=== PATIENT | male | born 1930 | race Caucasian/White ===

== ENCOUNTER 2016-05-28 22:42 | Inpatient (IN) | payer OTHER, BC ==
[~2016-05-28] VITALS: Ht 175.3 cm; Wt 88.4 kg
[~2016-05-28 22:42] MED LIST: B-COTAB18 PO; CHOL1CAP27 PO; FURO-85 PO; METO25TA56 PO
[2016-05-28] MEDS ORDERED: ACETAMINOPHEN 500 MG TAB PO STA (23:11)
[2016-05-28 23:17] LABS: BASO % 0.1 %; BASO ABS # 0.01 K/uL (0-0.2); COMPLETE YES; EOS % 0.7 %; HEMATOCRIT 40.4 % (42-52); IG% 0.1 %; LYMPH % 5.9 %; LYMPH ABS # 0.43 K/uL (1.2-3.4); MEAN CELL VOLUME 87.8 fL (80-100); MEAN CORPUSCULAR HEMOGLOBIN 29.1 pg (25-34); MEAN CORPUSCULAR HGB CONC 33.2 g/dl (32-36); MEAN PLATELET VOLUME 9.3 fL (7.4-10.4); NEUT % 82.2 %; PLATELET COUNT 185 K/uL (130-400); WHITE BLOOD COUNT 7.35 K/uL (4.8-10.8)
[2016-05-28 23:35] LABS: BUN/CREATININE RATIO 18.5 (10-20); CALCIUM 8.8 mg/dl (8.5-10.1); CREATININE 0.85 mg/dl (0.60-1.40); POTASSIUM 4.1 mmol/L (3.5-5.1)
[2016-05-28 23:40] LABS: ALB/GLOB RATIO 0.9 (0.9-2)
[2016-05-29] VITALS (12 sets, daily range): BP systolic 107–153; BP diastolic 56–68; PULSE 54–60; TEMP 36.4–37.1; O2SAT 93–98; Ht 175.3 cm; Wt 88.4 kg
[2016-05-29] MEDS ORDERED: LEVAQUIN 750MG / 150ML D5W IV STA (00:25)
[2016-05-29] MEDS ORDERED: OSELTAMIVIR PHOSPHATE 75 MG CAP PO STA (00:30)
[2016-05-29] MEDS ORDERED: ONDANSETRON INJ 2 MG/ML 2 ML VIAL IV PRN (01:15)
[2016-05-29] MEDS ORDERED: ACETAMINOPHEN 325 MG TAB PO PRN (01:15)
[2016-05-29] MEDS ORDERED: ZOLPIDEM TARTRATE 5 MG TAB PO PRN (01:15)
[2016-05-29] MEDS ORDERED: NITROGLYCERIN 0.4 MG SL PER TAB CHARGE SL PRN (01:15)
[2016-05-29] MEDS ORDERED: VANCOMYCIN INJ 2,300 MG in SODIUM CHLORIDE 0.9% 500ML 500 ML IV STA (01:19)
--- NOTE | 2016-05-29 02:32 | EMERGENCY ROOM VISIT NOTE ---
History Report prepared by Devon: Guy Villalpando Under the Supervision of: Dr. Richard Bhatia M.D. First contact with patient: 23:03 Chief Complaint: ILLNESS Stated Complaint: FEVER/WHEEZING History of Present Illness The patient is an 85 year old male who presents to the Emergency Room with complaints of a persistent cough and fever that began one day prior to arrival. He states that Monday, one week ago, he went out to dinner and could not carry himself out of the restaurant. This happened on the as well , as he continued to experience weakness. The patient went to [facility] on who did not make any significant diagnosis. The patient and his life at [place], who tried to schedule and appointment with his PCP. His PCP could not see him until the 16 of June. He denies LOC, headache, chills, diaphoresis, visual changes, neck pain, chest pain, breathing difficulties, nausea, vomiting, abdominal pain, back pain, melena, hematochezia, urinary symptoms, numbness, weakness, lymphadenopathy, rash, or other complaints. Source of History: patient Onset: One day [employer] Position: chest Quality: other (Cough) Timing: other (Persistent) Associated Symptoms: + fevers, No chest pain Review of Systems See HPI for pertinent positives and negatives. A total of ten systems were reviewed and were otherwise negative. Past Medical & Surgical Medical Problems: (1) Ambulatory dysfunction (2) CAD (coronary artery disease) (3) Cellulitis of right leg (4) Generalized weakness (5) History of triple bypass (6) Hypertension (7) Influenza A (8) Left lower lobe pneumonia (9) TIA (transient ischemic attack) Surgical Problems: (1) History of cholecystectomy (2) History of knee surgery (3) S/P triple vessel bypass (4) Status post skin graft Family History Patient reports no known family medical history. Social History Smoking Status: Former Smoker Alcohol Use: occasionally Drug Use: none Marital Status: Housing Status: assisted living Occupation Status: retired Current/Historical Medications Scheduled Aspirin (Aspirin), 162.5 MG PO Q2D B-Complex Vitamins (Vitamin B Complex), 1 TABS PO DAILY Cholecalciferol (D3), 1,000 UNIT PO DAILY Clopidogrel (Plavix), 75 MG PO QAM Furosemide (Lasix), 20 MG PO DAILY Metoprolol Tartrate (Lopressor) (Lopressor), 12.5 MG PO BID Nitroglycerin (Nitrostat), 0.4 MG UT PRN Pravastatin (Pravachol ), 40 MG PO QAM Senna (Senokot), 8.6 MG PO DAILY Allergies Coded Allergies: No Known Allergies (Unverified , 11/24/15) Physical Exam Vital Signs Date Time Temp Pulse Resp B/P Pulse Ox O2 Delivery O2 Flow Rate FiO2 05/29/16 00:35 63 20 116/50 92 Nasal Cannula 4.0 05/29/16 00:04 91 Nasal Cannula 05/29/16 00:04 87 Room Air 05/28/16 23:24 71 18 137/85 93 Nasal Cannula 2.0 05/28/16 23:13 95 Nasal Cannula 2.0 05/28/16 23:00 71 05/28/16 22:54 95 Nasal Cannula 2.0 05/28/16 22:54 99 Nasal Cannula 2.0 05/28/16 22:51 37.8 72 23 148/82 88 Room Air Physical Exam GENERAL: Awake, alert, well-appearing, in no distress HENT: Normocephalic, atraumatic. Oropharynx unremarkable. EYES: Normal conjunctiva. Sclera non-icteric. NECK: Supple. No nuchal rigidity. FROM. No JVD. RESPIRATORY: Clear to auscultation. CARDIAC: Regular rate, normal rhythm. Extremities warm and well perfused. Pulses equal. ABDOMEN: Soft, non-distended. No tenderness to palpation. No rebound or guarding. No masses. RECTAL: Deferred. MUSCULOSKELETAL: Chest examination reveals no tenderness. The back is symmetrical on inspection without obvious abnormality. There is no CVA tenderness to palpation. No joint edema. LOWER EXTREMITIES: Calves are equal size bilaterally and non-tender. 2+ Pitting edema. Chronic Discoloration. NEURO: Normal sensorium. No sensory or motor deficits noted. SKIN: No rash or jaundice noted. Medical Decision & Procedures ER Provider Diagnostic Interpretation: X-ray: Per my interpretation, radiologist review. CHEST X-RAY: Possible left lower lobe infiltrate. Laboratory Results 05/28/16 23:00 Red Blood Count 4.60, Mean Corpuscular Volume 87.8, Mean Corpuscular Hemoglobin 29.1, Mean Corpuscular Hemoglobin Concent 33.2, Mean Platelet Volume 9.3, Neutrophils (%) (Auto) 82.2, Lymphocytes (%) (Auto) 5.9, Monocytes (%) (Auto) 11.0, Eosinophils (%) (Auto) 0.7, Basophils (%) (Auto) 0.1, Neutrophils # (Auto ) 6.04, Lymphocytes # (Auto) 0.43, Monocytes # (Auto) 0.81, Eosinophils # (Auto ) 0.05, Basophils # (Auto) 0.01 05/28/16 23:00 Test 05/28/16 23:00 05/28/16 23:10 05/28/16 23:27 White Blood Count 7.35 K/uL (4.8-10.8) Red Blood Count 4.60 M/uL (4.7-6.1) Hemoglobin 13.4 g/dL (14.0-18.0) Hematocrit 40.4 % (42-52) Mean Corpuscular Volume 87.8 fL (80-100) Mean Corpuscular Hemoglobin 29.1 pg (25-34) Mean Corpuscular Hemoglobin Concent 33.2 g/dl (32-36) Platelet Count 185 K/uL (130-400) Mean Platelet Volume 9.3 fL (7.4-10.4) Neutrophils (%) (Auto) 82.2 % Lymphocytes (%) (Auto) 5.9 % Monocytes (%) (Auto) 11.0 % Eosinophils (%) (Auto) 0.7 % Basophils (%) (Auto) 0.1 % Neutrophils # (Auto) 6.04 K/uL (1.4-6.5) Lymphocytes # (Auto) 0.43 K/uL (1.2-3.4) Monocytes # (Auto) 0.81 K/uL (0.11-0.59) Eosinophils # (Auto) 0.05 K/uL (0-0.5) Basophils # (Auto) 0.01 K/uL (0-0.2) RDW Standard Deviation 50.1 fL (36.4-46.3) RDW Coefficient of Variation 15.6 % (11.5-14.5) Immature Granulocyte % (Auto) 0.1 % Immature Granulocyte # (Auto) 0.01 K/uL (0.00-0.02) Anion Gap 8.0 mmol/L (3-11) Est Creatinine Clear Calc Drug Dose 67.7 ml/min Estimated GFR () 90.8 Estimated GFR (Non- 78.3 BUN/Creatinine Ratio 18.5 (10-20) Calcium Level 8.8 mg/dl (8.5-10.1) Total Bilirubin 0.9 mg/dl (0.2-1) Aspartate Amino Transf (AST/SGOT) 54 U/L (15-37) Alanine Aminotransferase (ALT/SGPT) 61 U/L (12-78) Alkaline Phosphatase 67 U/L (45-117) Troponin I 0.016 ng/ml (0-0.045) Pro-B-Type Natriuretic Peptide 948 pg/ml (0-1800) Total Protein 7.0 gm/dl (6.4-8.2) Albumin 3.3 gm/dl (3.4-5.0) Globulin 3.7 gm/dl (2.5-4.0) Albumin/Globulin Ratio 0.9 (0.9-2) Bedside Lactic Acid Venous 1.26 mmol/L (0.90-1.70) Influenza Type A Antigen POS for Influ A (NEG) Influenza Type B Antigen Neg for Influ B (NEG) Laboratory results reviewed by me Medications Administered Medications (Trade) Dose Ordered Sig/Agnes Route Start Time Stop Time Status Last Admin Dose Admin Acetaminophen (Tylenol Tab) 1,000 mg NOW STAT PO 05/28/16 23:11 05/28/16 23:12 DC 05/28/16 23:27 1,000 MG Levofloxacin (Levaquin / D5W) 750 mg NOW STAT IV 05/29/16 00:25 05/29/16 00:26 DC 05/29/16 00:31 750 MG Oseltamivir Phosphate (Tamiflu Cap) 75 mg NOW STAT PO 05/29/16 00:30 05/29/16 00:31 DC 05/29/16 00:53 75 MG ECG Indication: other (Febrile illness) Rate (beats per minute): 70 Rhythm: normal sinus Findings: no acute ischemic change, other (Poor baseline) ED Course 2311: The patient was evaluated in room B12. A complete history and physical exam was performed. 2311: Ordered Tylenol 1000 mg PO. 0025: Ordered Levofloxacin 750 mg IV. 0028: I checked on the patient at this time, he was resting in bed. 0030: Ordered Tamiflu 75 mg PO. 0050: I discussed the case with Dr. Abdoulaye SANCHEZ Hospitalist, he will evaluate the patient for further treatment. Medical Decision Triage Nursing notes reviewed. The patient's presentation and history were concerning for flulike symptoms. Etiologies such as influenza, pneumonia, COPD, reactive airway disease, CHF, cardiac ischemia, pulmonary embolism, pneumothorax, musculoskeletal, infections , gastrointestinal, as well as others were entertained. Patient was evaluated. He had fever and cough. His chest x-ray was somewhat concerning for a left lower lobe pneumonia. He had an unremarkable CBC and chemistry panel. The patient has a positive influenza test. LFTs, lipase and cardiac markers were unremarkable. The patient was treated with Levaquin and Tamiflu. He was also given Tylenol. He did require supplemental oxygen. Consultation was made with Dr. Jordan Stanford. He evaluated the patient in the Emergency Room for further management. The chart was completed utilizing [employer] Speech voice recognition software. Grammatical errors, random word insertions, pronoun errors, and incomplete sentences are an occasional consequence of this system due to software limitations, ambient noise, and hardware issues. Any formal questions or concerns about the content, text, or information contained within the body of this dictation should be directly addressed to the physician for clarification. Consults Time Called: 27 Consulting Physician: Dr. Abdoulaye SANCHEZ Hospitalist Returned Call: [phone] I discussed the case with Dr. Abdoulaye SANCHEZ Hospitalist, he will evaluate the patient for further treatment. Impression Primary Impression: Influenza A Additional Impressions: Left lower lobe pneumonia Hypoxia Scribe Attestation The scribe's documentation has been prepared under my direction and personally reviewed by me in its entirety. I confirm that the note above accurately reflects all work, treatment, procedures, and medical decision making performed by me. Departure Information Dispostion Being Evaluated By Hospitalist Referrals Drew Aldrich M.D. (PCP) Patient Instructions My [facility] Problem Qualifiers
[2016-05-29] MEDS ORDERED: LEVALBUTEROL/IPRATROPIUM NEB INH SCH (03:00)
[2016-05-29] MEDS: IPRATROPIUM BROMIDE NEB SOLN 0.02% 2.5 ML VIAL INH SCH ×4 (03:00→19:09)
[2016-05-29] MEDS ORDERED: ALBUMIN 25% 50 ML with FUROSEMIDE INJ 40 MG IV ONE ×2 (03:00)
[2016-05-29] MEDS ORDERED: PIPERACILL/TAZOBAC IV 3.375 GM in DEXTROSE 5% 100ML IV ONE (03:30)
[2016-05-29] MEDS ORDERED: VANCOMYCIN CONSULT ACTIVE PRN (03:30)
[2016-05-29] MEDS ORDERED: LEVOFLOXACIN CONSULT ACTIVE PRN (03:30)
[2016-05-29] MEDS ORDERED: PIPERACILL/TAZOBAC CONSULT ACTIVE PRN (03:30)
[2016-05-29] MEDS: LEVALBUTEROL 1.25MG/0.5ML NEB INH SCH ×4 (04:50→19:09)
--- NOTE | 2016-05-29 06:00 | History and Physical ---
History & Physical Date & Time of Service: May 29, 2016 at 05:47. The patient was examined on 05/28/2016. Chief Complaint: Influenza A, Left Lower Lobe Pneumonia Primary Care Physician: Drew Aldrich M.D. History of Present Illness Source: patient The patient is an 85-year-old male presents to the emergency department with a cough and fever that began 1 day prior to arrival. He initially experienced weakness to the point of inability ambulate 7 days ago while at the ED, and then 6 days ago. He was seen at [facility] 4 days ago with no change in medications. Because of worsening symptoms, he presents emergency department for assessment tonight. Past Medical/Surgical History Medical Problems: (1) Ambulatory dysfunction Status: Resolved (2) CAD (coronary artery disease) Status: Chronic (3) Generalized weakness Status: Resolved (4) History of triple bypass Status: Chronic (5) Hypertension Status: Resolved (6) TIA (transient ischemic attack) Status: Resolved Surgical Problems: (1) History of cholecystectomy Status: Resolved (2) History of knee surgery Status: Resolved (3) S/P triple vessel bypass Status: Resolved (4) Status post skin graft Status: Resolved Family History Patient reports no known family medical history. Social History Smoking Status: Former Smoker Smokeless Tobacco Use: No Alcohol Use: none Drug Use: none Marital Status: Housing status: lives with family Occupational Status: retired Multi-Drug Resistant Organisms History of MDRO: No Allergies Coded Allergies: No Known Allergies (Unverified , 11/24/15) Home Medications Scheduled Aspirin (Aspirin), 162.5 MG PO Q2D B-Complex Vitamins (Vitamin B Complex), 1 TABS PO DAILY Cholecalciferol (D3), 1,000 UNIT PO DAILY Clopidogrel (Plavix), 75 MG PO QAM Furosemide (Lasix), 20 MG PO DAILY Metoprolol Tartrate (Lopressor) (Lopressor), 12.5 MG PO BID Nitroglycerin (Nitrostat), 0.4 MG UT PRN Pravastatin (Pravachol ), 40 MG PO QAM Senna (Senokot), 8.6 MG PO DAILY Review of Systems The patient denies chest pain, palpitations, lower extremity swelling, vision change, hearing change, sore throat, fevers, chills, sweats, nausea, vomiting, abdominal pain, pelvic pain, blood in urine or stool, dysuria, urinary frequency or urgency, lightheadedness, dizziness, headache, memory loss, rash, abnormal bruising or bleeding, imbalance, focal weakness, numbness or tingling in arms or legs, arthralgias or myalgias, back or neck pain, night sweats, or allergy symptoms. The review of systems is otherwise negative other than for that already noted above, and at least 10 systems have been reviewed. Physical Exam Vital Signs Date Time Temp Pulse Resp B/P Pulse Ox O2 Delivery O2 Flow Rate FiO2 05/29/16 04:52 56 18 96 Nasal Cannula 3.0 05/29/16 04:00 94 Nasal Cannula 3.0 05/29/16 02:24 37.1 58 24 123/63 97 Nasal Cannula 3.0 05/29/16 01:57 37.2 58 18 107/55 94 05/29/16 00:35 63 20 116/50 92 Nasal Cannula 4.0 05/29/16 00:04 91 Nasal Cannula 05/29/16 00:04 87 Room Air 05/28/16 23:24 71 18 137/85 93 Nasal Cannula 2.0 05/28/16 23:13 95 Nasal Cannula 2.0 05/28/16 23:00 71 05/28/16 22:54 95 Nasal Cannula 2.0 05/28/16 22:54 99 Nasal Cannula 2.0 05/28/16 22:51 37.8 72 23 148/82 88 Room Air The patient is awake, well-developed and adequately nourished, alert and oriented 3, normocephalic and atraumatic, lying in bed and in no acute distress. HEENT--PERRL, EOMI, mucous membranes and oropharynx dry. Neck--supple, no JVD or bruits, thyroid normal, trachea midline, no adenopathy. Heart--normal S1 and S2, no extra beats, no murmurs, rubs or gallops. Lungs--coarse breath sounds bilaterally with crackles at the left base, no respiratory distress, no accessory muscle use. Abdomen--normal bowel sounds and soft, nontender and nondistended, no hernias or masses, no organomegaly. Extremities--no cyanosis, or clubbing bilaterally. There are good distal pulses b/l. Right lower extremity with 3+ pitting edema and moderately severe erythema and warmth from the ankle to the knee, with multiple coalesced vacuoles on anterior tibial surface. Left lower extremity with 2+ pitting edema and chronic venous stasis changes. Left upper extremity with healing laceration with well apposed edges, but 3-4 cm of surrounding erythema. Dermatologic--as noted above. Neurologic--cranial nerves II through XII grossly intact. Rheumatologic--decreased range of motion all lower extremity joints. Psychiatric--normal affect. Diagnostics Laboratory Results Results Past 24 Hours Test 05/28/16 23:00 05/28/16 23:10 05/28/16 23:27 Range/Units White Blood Count 7.35 4.8-10.8 K/uL Red Blood Count 4.60 4.7-6.1 M/uL Hemoglobin 13.4 14.0-18.0 g/dL Hematocrit 40.4 42-52 % Mean Corpuscular Volume 87.8 80-100 fL Mean Corpuscular Hemoglobin 29.1 25-34 pg Mean Corpuscular Hemoglobin Concent 33.2 32-36 g/dl Platelet Count 185 130-400 K/uL Mean Platelet Volume 9.3 7.4-10.4 fL Neutrophils (%) (Auto) 82.2 % Lymphocytes (%) (Auto) 5.9 % Monocytes (%) (Auto) 11.0 % Eosinophils (%) (Auto) 0.7 % Basophils (%) (Auto) 0.1 % Neutrophils # (Auto) 6.04 1.4-6.5 K/uL Lymphocytes # (Auto) 0.43 1.2-3.4 K/uL Monocytes # (Auto) 0.81 0.11-0.59 K/uL Eosinophils # (Auto) 0.05 0-0.5 K/uL Basophils # (Auto) 0.01 0-0.2 K/uL RDW Standard Deviation 50.1 36.4-46.3 fL RDW Coefficient of Variation 15.6 11.5-14.5 % Immature Granulocyte % (Auto) 0.1 % Immature Granulocyte # (Auto) 0.01 0.00-0.02 K/uL Sodium Level 140 136-145 mmol/L Potassium Level 4.1 3.5-5.1 mmol/L Chloride Level 106 98-107 mmol/L Carbon Dioxide Level 26 21-32 mmol/L Anion Gap 8.0 3-11 mmol/L Blood Urea Nitrogen 16 7-18 mg/dl Creatinine 0.85 0.60-1.40 mg/dl Est Creatinine Clear Calc Drug Dose 67.7 ml/min Estimated GFR () 90.8 Estimated GFR (Non- 78.3 BUN/Creatinine Ratio 18.5 10-20 Random Glucose 109 70-99 mg/dl Calcium Level 8.8 8.5-10.1 mg/dl Total Bilirubin 0.9 0.2-1 mg/dl Aspartate Amino Transf (AST/SGOT) 54 15-37 U/L Alanine Aminotransferase (ALT/SGPT) 61 12-78 U/L Alkaline Phosphatase 67 45-117 U/L Troponin I 0.016 0-0.045 ng/ml Pro-B-Type Natriuretic Peptide 948 0-1800 pg/ml Total Protein 7.0 6.4-8.2 gm/dl Albumin 3.3 3.4-5.0 gm/dl Globulin 3.7 2.5-4.0 gm/dl Albumin/Globulin Ratio 0.9 0.9-2 Bedside Lactic Acid Venous 1.26 0.90-1.70 mmol/L Influenza Type A Antigen POS for Influ A NEG Influenza Type B Antigen Neg for Influ B NEG Microbiology Results 05/28/16 Blood Culture, Received Pending 05/28/16 Blood Culture, Received Pending Diagnostic Radiology Chest x-ray with left lower lobe infiltrate. EKG EKG performed in the emergency department was not readable due to severe noise. Impression Assessment and Plan Infectious disease with multiple issues--influenza A /right lower extremity cellulitis/ left lower lobe pneumonia/left upper extremity cellulitis surrounding laceration--the patient will be placed on vancomycin IV per renal dosing, Zosyn 3.375 mg IV every 8 hours, levofloxacin 500 mg IV every 24 hours, Xopenex with Atrovent nebulizer every 6 hours while awake and every 2 hours when necessary, and Tamiflu 75 mg by mouth twice a day. CAD/hypertension/CABG 3/TIA history--the patient will be admitted to the telemetry unit for serial cardiac enzymes, cardiac rhythm monitoring and close oxygen follow-up. Continue aspirin but change to 81 mg by mouth daily, clopidogrel 75 mg by mouth every morning, metoprolol tartrate 12.5 mg by mouth twice a day, and nitroglycerin sublingual when necessary. Hold furosemide 20 mg by mouth daily. Hypercholesterolemia--continue pravastatin 40 mg by mouth every morning. Level of Care Telemetry Advanced Directives Existing Advance Directive: No Existing Living Will: No Existing Power of Court Advocate: Yes Resuscitation Status DO NOT RESUSCITATE VTE Prophylaxis VTE Risk Assessment Done? Y/N: Yes Risk Level: Moderate Given or contraindicated: SCD's
--- NOTE | 2016-05-29 06:45 | DIAGNOSTIC IMAGING REPORT ---
CHEST ONE VIEW PORTABLE CLINICAL HISTORY: Respiratory distress COMPARISON STUDY: 07/10/2015 FINDINGS: There are postsurgical changes of midline sternotomy. The heart is the upper limits of normal in size. There is no overt failure. There are patchy left basal airspace opacities, atelectasis versus pneumonia. No pleural effusions are visualized.[ Arthritic changes are present within the shoulders. IMPRESSION: Patchy left basal airspace opacities. Electronically signed by: Will Trinidad M.D. 05/29/2016 6:44 AM Dictated Date/Time: 05/29/2016 6:43 AM
[2016-05-29] MEDS ORDERED: PNEUMOCOCCAL ADMINISTRATION CHARGE ONE (08:00)
[2016-05-29] MEDS: PIPERACILL/TAZOBAC IV 3.375 GM in DEXTROSE 5% 100ML 100 ML IV SCH ×3 (08:00→23:45)
[2016-05-29] MEDS ORDERED: PNEUMOCOCCAL POLYSACCHARIDES 25 MCG/0.5 ML VIAL/SYR IM. ONE (08:00)
[2016-05-29] MEDS: OSELTAMIVIR PHOSPHATE 75 MG CAP PO SCH ×2 (09:00→20:53)
[2016-05-29] MEDS: PRAVASTATIN SOD 20 MG TAB PO SCH (09:00)
[2016-05-29] MEDS: CLOPIDOGREL BISULFATE 75 MG TAB PO SCH (09:00)
[2016-05-29] MEDS: VITAMIN B COMPLEX TAB PO SCH (09:00)
[2016-05-29] MEDS: SENNA 8.6 MG TAB PO SCH (09:00)
[2016-05-29] MEDS: METOPROLOL TARTRATE 25 MG TAB PO SCH ×2 (09:00→20:00)
[2016-05-29] MEDS: CHOLECALCIFEROL 1000 INTER.UNIT TAB PO SCH (09:00)
[2016-05-29] MEDS: ASPIRIN 81 MG ECTAB PO SCH (09:00)
[2016-05-29 09:07] LABS: HEMATOCRIT 34.9 % (42-52); MEAN CELL VOLUME 87.3 fL (80-100); MEAN CORPUSCULAR HEMOGLOBIN 29.3 pg (25-34); MEAN CORPUSCULAR HGB CONC 33.5 g/dl (32-36); MEAN PLATELET VOLUME 8.9 fL (7.4-10.4); PLATELET COUNT 150 K/uL (130-400); WHITE BLOOD COUNT 7.15 K/uL (4.8-10.8)
[2016-05-29 09:42] LABS: BASO % 0.1 %; BASO ABS # 0.01 K/uL (0-0.2); COMPLETE YES; EOS % 0.3 %; IG% 0.1 %; LYMPH % 14.1 %; LYMPH ABS # 1.01 K/uL (1.2-3.4); MONO % 10.6 %; NEUT % 74.8 %
--- NOTE | 2016-05-29 09:59 | Pharmacy Progress Note ---
Pharmacy Antibiotic Consult Date of Service: May 29, 2016. Pharmacy Dosing Scope Pharmacy is consulted to initiate vancomycin IV dosing therapy, order appropriate labs and adjust drug dose/frequency. Subjective The patient is a 85 year old male admitted on May 29, 2016 at 01:05 with increasing weakness and shortness of breath. Objective Height (Feet): 5 Height (Inches): 9.00 Weight (Kilograms): 90.900 Lab Results (24hrs): Laboratory Tests Test 05/28/16 23:00 05/29/16 08:50 BUN/Creatinine Ratio 18.5 Blood Urea Nitrogen 16 mg/dl Creatinine 0.85 mg/dl White Blood Count 7.35 K/uL 7.15 K/uL Red Blood Count 4.60 M/uL 4.00 M/uL Hemoglobin 13.4 g/dL 11.7 g/dL Hematocrit 40.4 % 34.9 % Mean Corpuscular Volume 87.8 fL 87.3 fL Mean Corpuscular Hemoglobin 29.1 pg 29.3 pg Mean Corpuscular Hemoglobin Concent 33.2 g/dl 33.5 g/dl Platelet Count 185 K/uL 150 K/uL Mean Platelet Volume 9.3 fL 8.9 fL Neutrophils (%) (Auto) 82.2 % 74.8 % Lymphocytes (%) (Auto) 5.9 % 14.1 % Monocytes (%) (Auto) 11.0 % 10.6 % Eosinophils (%) (Auto) 0.7 % 0.3 % Basophils (%) (Auto) 0.1 % 0.1 % Neutrophils # (Auto) 6.04 K/uL 5.34 K/uL Lymphocytes # (Auto) 0.43 K/uL 1.01 K/uL Monocytes # (Auto) 0.81 K/uL 0.76 K/uL Eosinophils # (Auto) 0.05 K/uL 0.02 K/uL Basophils # (Auto) 0.01 K/uL 0.01 K/uL Assessment & Plan Loading dose: vancomycin 2300 mg (25 mg/kg) IV X 1 dose then: vancomycin 1350 mg IV every 12 hours (population pharmacokinetics suggest a half-life of 11.5 hours with an elimination constant of 0.06 hr-1). Goal peak level estimate: between 35-40 mcg/mL. Goal trough level estimate: between 15 - 20 mcg/mL (indication: pneumonia or cellulitis). Trough has been ordered for: prior to 1400 dose. Pharmacy will continue to follow and will adjust dose/frequency as necessary. Thank you
[2016-05-29 13:29] LABS: URINE APPEARANCE CLEAR (CLEAR); URINE BILIRUBIN NEG (NEG); URINE COLOR YELLOW; URINE NITRITE NEG (NEG); URINE SPECIFIC GRAVITY 1.013 (1.000-1.030); UROBILINOGEN NEG (NEG)
[2016-05-29 13:33] LABS: MANUAL MICROSCOPIC REQUIRED? NO; REVIEW REQ? NO
[2016-05-29] MEDS: VANCOMYCIN INJ 1,350 MG in SODIUM CHLORIDE 0.9% 250ML 250 ML IV SCH (14:17)
[2016-05-29] MEDS: LEVOFLOXACIN / D5W 750 MG in PREMIXED IN D5W 150 ML IV SCH (20:53)
[2016-05-30] VITALS (8 sets, daily range): BP systolic 122–148; BP diastolic 55–77; PULSE 57–64; TEMP 36.5–36.7; O2SAT 90–95
[2016-05-30] MEDS: IPRATROPIUM BROMIDE NEB SOLN 0.02% 2.5 ML VIAL INH SCH ×4 (01:50→19:42)
[2016-05-30] MEDS: LEVALBUTEROL 1.25MG/0.5ML NEB INH SCH ×4 (01:50→19:42)
[2016-05-30] MEDS: VANCOMYCIN INJ 1,350 MG in SODIUM CHLORIDE 0.9% 250ML 250 ML IV SCH ×2 (02:47→14:25)
[2016-05-30 05:55] LABS: BASO % 0.2 %; BASO ABS # 0.01 K/uL (0-0.2); COMPLETE YES; EOS % 1.2 %; HEMATOCRIT 35.2 % (42-52); LYMPH % 18.1 %; LYMPH ABS # 0.93 K/uL (1.2-3.4); MEAN CELL VOLUME 88.9 fL (80-100); MEAN CORPUSCULAR HEMOGLOBIN 28.8 pg (25-34); MEAN CORPUSCULAR HGB CONC 32.4 g/dl (32-36); MEAN PLATELET VOLUME 9.5 fL (7.4-10.4); MONO % 10.1 %; NEUT % 70.4 %; PLATELET COUNT 155 K/uL (130-400); RED BLOOD COUNT 3.96 M/uL (4.7-6.1); WHITE BLOOD COUNT 5.13 K/uL (4.8-10.8)
[2016-05-30 06:31] LABS: BUN/CREATININE RATIO 9.7 (10-20); CALCIUM 8.4 mg/dl (8.5-10.1); CREATININE 0.85 mg/dl (0.60-1.40); MAGNESIUM 2.4 mg/dl (1.8-2.4); POTASSIUM 3.6 mmol/L (3.5-5.1)
[2016-05-30] MEDS: METOPROLOL TARTRATE 25 MG TAB PO SCH ×2 (08:00→20:56)
[2016-05-30] MEDS: ASPIRIN 81 MG ECTAB PO SCH (08:11)
[2016-05-30] MEDS: CLOPIDOGREL BISULFATE 75 MG TAB PO SCH (08:11)
[2016-05-30] MEDS: OSELTAMIVIR PHOSPHATE 75 MG CAP PO SCH ×2 (08:12→20:55)
[2016-05-30] MEDS: PRAVASTATIN SOD 20 MG TAB PO SCH (08:12)
[2016-05-30] MEDS: SENNA 8.6 MG TAB PO SCH (08:12)
[2016-05-30] MEDS: CHOLECALCIFEROL 1000 INTER.UNIT TAB PO SCH (08:13)
[2016-05-30] MEDS: VITAMIN B COMPLEX TAB PO SCH (08:13)
[2016-05-30] MEDS: PIPERACILL/TAZOBAC IV 3.375 GM in DEXTROSE 5% 100ML 100 ML IV SCH ×2 (08:21→17:07)
--- NOTE | 2016-05-30 11:05 | Progress Note ---
Subjective Date of Service: May 30, 2016. Subjective Pt evaluation today including: conversation w/ patient, physical exam, chart review, lab review, review of studies, review of inpatient medication list Dry cough noted Reports some shortness of breath while walking in room No fevers or chills noted Problem List Medical Problems: (1) Cellulitis of right leg Status: Acute (2) Closed head injury Status: Acute (3) Facial laceration Status: Acute (4) Fall Status: Acute (5) Fever Status: Acute (6) Hypoxia Status: Acute (7) Rib fracture Status: Acute (8) Skin tear of left forearm without complication Status: Acute Review of Systems Constitutional: No chills, No fever Respiratory: + cough, + dyspnea on exertion, No shortness of breath, No sputum , No wheezing Cardiac: No chest pain, No orthopnea Abdomen: No diarrhea, No nausea, No pain, No vomiting Musculoskeletal: No joint pain, No muscle pain Male : No dysuria, No urinary frequency Neurologic: No memory loss, No paralysis Objective Vital Signs Date Time Temp Pulse Resp B/P Pulse Ox O2 Delivery O2 Flow Rate FiO2 05/30/16 08:09 36.5 59 22 148/73 92 Room Air 05/30/16 07:24 62 16 92 Room Air 05/30/16 01:50 64 16 90 Room Air 05/30/16 01:17 93 Room Air 05/30/16 01:00 Nasal Cannula 3.0 05/30/16 00:15 36.7 61 20 122/55 92 Room Air 05/29/16 20:00 Nasal Cannula 3.0 05/29/16 19:09 57 18 93 Room Air 05/29/16 16:00 Nasal Cannula 3.0 05/29/16 14:57 36.4 54 20 131/68 96 3.0 05/29/16 14:34 54 18 95 Nasal Cannula 3.0 05/29/16 13:52 36.4 54 20 153/65 96 Nasal Cannula 3.0 05/29/16 12:00 94 Nasal Cannula 3.0 05/29/16 11:35 36.6 60 18 122/56 94 Physical Exam General Appearance: WD/WN, no apparent distress Neck: supple, no adenopathy Respiratory/Chest: lungs clear, + decreased breath sounds Cardiovascular: no edema, no gallop Abdomen: non tender, soft Neurologic/Psychiatric: alert, oriented x 3 Laboratory Results Last 24 Hours Test 05/29/16 13:11 05/30/16 05:20 Urine Color YELLOW Urine Appearance CLEAR Urine pH 5.0 Urine Specific [place] 1.013 Urine Protein NEG Urine Glucose (UA) NEG Urine Ketones NEG Urine Occult Blood NEG Urine Nitrite NEG Urine Bilirubin NEG Urine Urobilinogen NEG Urine Leukocyte Esterase NEG White Blood Count 5.13 K/uL Red Blood Count 3.96 M/uL Hemoglobin 11.4 g/dL Hematocrit 35.2 % Mean Corpuscular Volume 88.9 fL Mean Corpuscular Hemoglobin 28.8 pg Mean Corpuscular Hemoglobin Concent 32.4 g/dl Platelet Count 155 K/uL Mean Platelet Volume 9.5 fL Neutrophils (%) (Auto) 70.4 % Lymphocytes (%) (Auto) 18.1 % Monocytes (%) (Auto) 10.1 % Eosinophils (%) (Auto) 1.2 % Basophils (%) (Auto) 0.2 % Neutrophils # (Auto) 3.61 K/uL Lymphocytes # (Auto) 0.93 K/uL Monocytes # (Auto) 0.52 K/uL Eosinophils # (Auto) 0.06 K/uL Basophils # (Auto) 0.01 K/uL RDW Standard Deviation 50.1 fL RDW Coefficient of Variation 15.4 % Immature Granulocyte % (Auto) 0.0 % Immature Granulocyte # (Auto) 0.00 K/uL Sodium Level 142 mmol/L Potassium Level 3.6 mmol/L Chloride Level 107 mmol/L Carbon Dioxide Level 27 mmol/L Anion Gap 8.0 mmol/L Blood Urea Nitrogen 8 mg/dl Creatinine 0.85 mg/dl Est Creatinine Clear Calc Drug Dose 68.2 ml/min Estimated GFR () 90.8 Estimated GFR (Non- 78.3 BUN/Creatinine Ratio 9.7 Random Glucose 95 mg/dl Calcium Level 8.4 mg/dl Magnesium Level 2.4 mg/dl Assessment and Plan Influenza A/left lower lobe pneumonia--the patient was placed on vancomycin IV per renal dosing, Zosyn 3.375 mg IV every 8 hours, levofloxacin 500 mg IV every 24 hours, Xopenex with Atrovent nebulizer every 6 hours while awake and every 2 hours when necessary, and Tamiflu 75 mg by mouth twice a day. Blood cx neg. Will check MRSA in nares. No fevers or leukocytosis. Obtain PT/OT, likely DC in 24-48 hrs CAD/hypertension/CABG 3/TIA history--the patient will be admitted to the telemetry unit for serial cardiac enzymes, cardiac rhythm monitoring and close oxygen follow-up. Continue aspirin but change to 81 mg by mouth daily, clopidogrel 75 mg by mouth every morning, metoprolol tartrate 12.5 mg by mouth twice a day, and nitroglycerin sublingual when necessary. Hold furosemide 20 mg by mouth daily. Hypercholesterolemia--continue pravastatin 40 mg by mouth every morning.
[2016-05-30] MEDS ORDERED: VANCOMYCIN TROUGH SCH (13:30)
[2016-05-30] MEDS: LEVOFLOXACIN / D5W 750 MG in PREMIXED IN D5W 150 ML IV SCH (23:34)
[2016-05-31] VITALS (8 sets, daily range): BP systolic 131–174; BP diastolic 70–84; PULSE 54–94; TEMP 36.3–36.6; O2SAT 92–97
[2016-05-31] MEDS: PIPERACILL/TAZOBAC IV 3.375 GM in DEXTROSE 5% 100ML 100 ML IV SCH ×2 (01:32→08:41)
[2016-05-31] MEDS: LEVALBUTEROL 1.25MG/0.5ML NEB INH SCH ×3 (01:50→14:10)
[2016-05-31] MEDS: IPRATROPIUM BROMIDE NEB SOLN 0.02% 2.5 ML VIAL INH SCH ×3 (01:50→14:11)
[2016-05-31 07:13] LABS: BASO % 0.2 %; BASO ABS # 0.01 K/uL (0-0.2); COMPLETE YES; HEMATOCRIT 35.2 % (42-52); IG% 0.4 %; LYMPH % 16.4 %; LYMPH ABS # 0.91 K/uL (1.2-3.4); MEAN CELL VOLUME 87.6 fL (80-100); MEAN CORPUSCULAR HEMOGLOBIN 29.1 pg (25-34); MEAN CORPUSCULAR HGB CONC 33.2 g/dl (32-36); MEAN PLATELET VOLUME 9.1 fL (7.4-10.4); MONO % 11.2 %; NEUT % 69.8 %; PLATELET COUNT 163 K/uL (130-400); RED BLOOD COUNT 4.02 M/uL (4.7-6.1); WHITE BLOOD COUNT 5.55 K/uL (4.8-10.8)
[2016-05-31 07:39] LABS: BUN/CREATININE RATIO 9.9 (10-20); CALCIUM 8.6 mg/dl (8.5-10.1); CREATININE 0.91 mg/dl (0.60-1.40); MAGNESIUM 2.3 mg/dl (1.8-2.4); POTASSIUM 3.9 mmol/L (3.5-5.1)
[2016-05-31] MEDS: CHOLECALCIFEROL 1000 INTER.UNIT TAB PO SCH (08:34)
[2016-05-31] MEDS: VITAMIN B COMPLEX TAB PO SCH (08:34)
[2016-05-31] MEDS: OSELTAMIVIR PHOSPHATE 75 MG CAP PO SCH (08:34)
[2016-05-31] MEDS: CLOPIDOGREL BISULFATE 75 MG TAB PO SCH (08:35)
[2016-05-31] MEDS: ASPIRIN 81 MG ECTAB PO SCH (08:35)
[2016-05-31] MEDS: PRAVASTATIN SOD 20 MG TAB PO SCH (08:35)
[2016-05-31] MEDS: SENNA 8.6 MG TAB PO SCH (08:35)
[2016-05-31] MEDS: METOPROLOL TARTRATE 25 MG TAB PO SCH (08:36)
--- NOTE | 2016-05-31 10:37 | Clinical Documentation Query ---
JULIAN Raza : CLINICAL DOCUMENTATION QUERY Patient is a 85 year old male admitted for evaluation and treatment of influenza A and left lower lobe pneumonia. He has been placed on Zosyn, Vancomycin, and Levaquin. As appropriate, please consider documentation as suggested below as this directly impacts DRG assignment thereby impacting measures of severity of illness and associated risk of mortality. Thank you. In your clinical opinion is this patient being managed for: (X ) Pneumonia due to possible MRSA and/or gram-negative bacteria ( ) Other explanation of clinical findings (Please Explain) ( ) Unable to determine (Please Define) ( ) Need to Discuss ( ) Not Agree The medical record reflects the following clinical findings, treatment, and risk factors. Clinical Indicators: As above Treatment:He has been placed on Zosyn, Vancomycin, and Levaquin IV Risk Factors: Age, comorbid conditions Please clarify and document your clinical opinion in the progress notes and discharge summary. Terms such as "probable", "suspected", "likely", "questionable", "possible", or "still to be ruled out" are acceptable. IF IN AGREEMENT, YOU MUST DOCUMENT ABOVE DIAGNOSTIC STATEMENT IN DAILY PROGRESS NOTES AND DISCHARGE SUMMARY. This document is not part of the patient's record. Thank You, Beau Talavera, RN [phone]
--- NOTE | 2016-05-31 13:40 | Progress Note ---
Subjective Date of Service: May 31, 2016. Subjective Pt evaluation today including: conversation w/ patient, physical exam, chart review, lab review, review of studies, review of inpatient medication list Resting in chair No shortness of breath, fevers, chills, productive cough Weakness reported Appetite improved at bedside Problem List Medical Problems: (1) Cellulitis of right leg Status: Acute (2) Closed head injury Status: Acute (3) Facial laceration Status: Acute (4) Fall Status: Acute (5) Fever Status: Acute (6) Hypoxia Status: Acute (7) Rib fracture Status: Acute (8) Skin tear of left forearm without complication Status: Acute Review of Systems Constitutional: + fatigue, + weakness, No chills, No fever Respiratory: No cough, No dyspnea on exertion, No shortness of breath, No sputum, No wheezing Cardiac: No chest pain, No orthopnea Abdomen: No constipation, No diarrhea, No nausea, No pain, No vomiting Musculoskeletal: No joint pain, No muscle pain Male : No dysuria, No urinary frequency Neurologic: No paralysis, No weakness Objective Vital Signs Date Time Temp Pulse Resp B/P Pulse Ox O2 Delivery O2 Flow Rate FiO2 05/31/16 08:30 60 05/31/16 08:30 Room Air 2.0 05/31/16 07:25 57 16 93 Room Air 05/31/16 07:24 36.6 57 18 146/74 94 05/31/16 01:50 60 16 92 Room Air 05/31/16 00:16 Room Air 05/31/16 00:09 36.4 54 18 131/70 97 Room Air 05/30/16 20:21 Room Air 05/30/16 19:43 57 16 95 Room Air 05/30/16 16:00 Room Air 05/30/16 15:13 36.5 58 22 136/77 91 Room Air 05/30/16 14:11 58 16 95 Room Air Physical Exam General Appearance: WD/WN, no apparent distress, + thin Neck: supple, no adenopathy Respiratory/Chest: lungs clear, + decreased breath sounds Cardiovascular: no edema, no gallop Abdomen: non tender, soft Neurologic/Psychiatric: alert, normal mood/affect, oriented x 3 Laboratory Results Last 24 Hours Test 05/31/16 06:50 White Blood Count 5.55 K/uL Red Blood Count 4.02 M/uL Hemoglobin 11.7 g/dL Hematocrit 35.2 % Mean Corpuscular Volume 87.6 fL Mean Corpuscular Hemoglobin 29.1 pg Mean Corpuscular Hemoglobin Concent 33.2 g/dl Platelet Count 163 K/uL Mean Platelet Volume 9.1 fL Neutrophils (%) (Auto) 69.8 % Lymphocytes (%) (Auto) 16.4 % Monocytes (%) (Auto) 11.2 % Eosinophils (%) (Auto) 2.0 % Basophils (%) (Auto) 0.2 % Neutrophils # (Auto) 3.88 K/uL Lymphocytes # (Auto) 0.91 K/uL Monocytes # (Auto) 0.62 K/uL Eosinophils # (Auto) 0.11 K/uL Basophils # (Auto) 0.01 K/uL RDW Standard Deviation 49.7 fL RDW Coefficient of Variation 15.3 % Immature Granulocyte % (Auto) 0.4 % Immature Granulocyte # (Auto) 0.02 K/uL Sodium Level 141 mmol/L Potassium Level 3.9 mmol/L Chloride Level 107 mmol/L Carbon Dioxide Level 27 mmol/L Anion Gap 7.0 mmol/L Blood Urea Nitrogen 9 mg/dl Creatinine 0.91 mg/dl Est Creatinine Clear Calc Drug Dose 62.9 ml/min Estimated GFR () 87.5 Estimated GFR (Non- 75.5 BUN/Creatinine Ratio 9.9 Random Glucose 94 mg/dl Calcium Level 8.6 mg/dl Magnesium Level 2.3 mg/dl Assessment and Plan Influenza A/left lower lobe pneumonia, can not rule out gram neg organism--the patient was placed on vancomycin IV per renal dosing, Zosyn 3.375 mg IV every 8 hours, levofloxacin 500 mg IV every 24 hours, Xopenex with Atrovent nebulizer every 6 hours while awake and every 2 hours when necessary, and Tamiflu 75 mg by mouth twice a day. Blood cx neg. MRSA nares neg so vanc dced. No fevers or leukocytosis. Obtain PT/OT, likely DC in 24-48 hrs CAD/hypertension/CABG 3/TIA history--the patient will be admitted to the telemetry unit for serial cardiac enzymes, cardiac rhythm monitoring and close oxygen follow-up. Continue aspirin but change to 81 mg by mouth daily, clopidogrel 75 mg by mouth every morning, metoprolol tartrate 12.5 mg by mouth twice a day, and nitroglycerin sublingual when necessary. Hold furosemide 20 mg by mouth daily. Hypercholesterolemia--continue pravastatin 40 mg by mouth every morning.
[2016-05-31] MEDS ORDERED: LEVO-18 PO (16:07)
[2016-05-31] MEDS ORDERED: TMF75 PO (16:07)
--- NOTE | 2016-05-31 16:09 | Discharge Instructions ---
Discharge Instructions Date of Service May 31, 2016. Admission Reason for Admission: Influenza A, Left Lower Lobe Pneumonia Discharge Discharge Diagnosis / Problem: Influenza PNA Discharge Goals Goal(s): Decrease discomfort, Improve function, Increase independence, Improve disease control, Diagnostic testing, Therapeutic intervention Activity Recommendations Activity Limitations: resume your previous activity Exercise/Sports Limitations: none Shower/Bathe: no limitations . Instructions / Follow-Up Instructions / Follow-Up Patient to be discharged home Prescriptions sent to pharmacy for levaquin 750 mg one tablet daily for 4 more days and tamiflu twice a day for 2 more days Please continue to rest and stay hydrated IF worsening fevers, shortness of breath, chest pain, please report to ER Current Hospital Diet Patient's current hospital diet: Regular Diet Discharge Diet Recommended Diet: Regular Diet Pending Studies Studies pending at discharge: no Medical Emergencies . Who to Call and When: Medical Emergencies: If at any time you feel your situation is an emergency, please call 911 immediately. . Non-Emergent Contact Non-Emergency issues call your: Primary Care Provider Call Non-Emergent contact if: you have a fever, your pain is worsening . . "Provider Documentation" section prepared by Nathan Eddy. VTE Core Measure Inpt VTE Proph given/why not?: SCD's
--- NOTE | 2016-05-31 16:12 | Discharge Summary ---
Discharge Summary Date of Service May 31, 2016. Discharge Summary Admission Date: May 29, 2016 at 01:05 Discharge Date: May 31, 2016 Discharge Disposition: Home Principal Diagnosis: Influenza A PNA Medication Reconciliation New Medications: Levofloxacin (Levaquin) 750 Mg Tab 750 MG PO DAILY for 4 Days, #4 TAB Oseltamivir Phosphate (Tamiflu) 75 Mg Cap 75 MG PO BID for 2 Days, #4 CAP Continued Medications: Aspirin (Aspirin) 325 Mg Tab 162.5 MG PO Q2D, TAB B-Complex Vitamins (Vitamin B Complex) 1 Tab Tab 1 TABS PO DAILY Cholecalciferol (D3) 1,000 Unit Cap 1000 UNIT PO DAILY Clopidogrel (Plavix) 75 Mg Tab 75 MG PO QAM, TAB Furosemide (Lasix) 20 Mg Tab 20 MG PO DAILY, TAB Metoprolol Tartrate (Lopressor) (Lopressor) 25 Mg Tab 12.5 MG PO BID, TAB Nitroglycerin (Nitrostat) 0.4 Mg Tab 0.4 MG UT PRN, BTL Pravastatin (Pravachol ) 20 Mg Tab 40 MG PO QAM, TAB Senna (Senokot) 8.6 Mg Tab 8.6 MG PO DAILY, TAB Discharge Exam Review of Systems: Constitutional: + fatigue, + weakness, No chills, No fever Eyes: No eye pain, No worsening of vision Respiratory: No cough, No dyspnea on exertion, No shortness of breath, No sputum, No wheezing Cardiovascular: No chest pain, No orthopnea Abdomen: No pain, No vomiting Musculoskeletal: No joint pain, No muscle pain Genitourinary - Male: No dysuria, No hematuria, No urinary frequency Physical Exam: General Appearance: WD/WN, no apparent distress Neck: supple, no adenopathy Cardiovascular: no edema, no gallop Abdomen / GI: non tender, soft Neurologic/Psychiatric: alert, normal mood/affect, oriented x 3 Hospital Course Influenza A/left lower lobe pneumonia, can not rule out gram neg organism--the patient was placed on vancomycin IV per renal dosing, Zosyn 3.375 mg IV every 8 hours, levofloxacin 500 mg IV every 24 hours, Xopenex with Atrovent nebulizer every 6 hours while awake and every 2 hours when necessary, and Tamiflu 75 mg by mouth twice a day. Blood cx neg. MRSA nares neg so vanc dced. No fevers or leukocytosis. Obtain PT/OT, still weak but pt prefers to go home, DC on levaquin to finish 7 day course as well as tamiflu to finish 5 day course CAD/hypertension/CABG 3/TIA history--the patient will be admitted to the telemetry unit for serial cardiac enzymes, cardiac rhythm monitoring and close oxygen follow-up. Continue aspirin but change to 81 mg by mouth daily, clopidogrel 75 mg by mouth every morning, metoprolol tartrate 12.5 mg by mouth twice a day, and nitroglycerin sublingual when necessary. Hold furosemide 20 mg by mouth daily. Hypercholesterolemia--continue pravastatin 40 mg by mouth every morning. Total Time Spent: Greater than 30 minutes This includes examination of the patient, discharge planning, medication reconciliation, and communication with other providers. Discharge Instructions Please refer to the electronic Patient Visit Report (Discharge Instructions) for additional information. Additional Copies To Drew Aldrich M.D.
[2016-10-21] MEDS ORDERED: SENN-61 PO (11:15)
[2016-10-21] MEDS ORDERED: ASPI325T4 PO (15:14)
[2016-10-21] MEDS ORDERED: PRAV20TA PO (15:58)
[2016-10-21] MEDS ORDERED: CLOP1TAB15 PO (15:58)
[2016-10-21] MEDS ORDERED: NTRGSL/4 UT (15:58)
[2016-10-25] MEDS ORDERED: CEPH500C2 PO (09:18)
== END 2016-05-31 17:30 | disposition home or self-care (01) | DRG 178 ==
LOC: ENRESERVDT → ENRESERVTM → EDBD 22:42 → C.EDB 22:44 → C.2T 05-29 01:05 → EDBEDREQ 05-29 01:23 → C.4E 05-29 13:43
PROVIDERS: ADMIT Hospitalist; ATTEND Hospitalist
DX: J11.00 Influenza due to unidentified influenza virus with unspecified type of pneumonia (principal); J15.6 Pneumonia due to other Gram-negative bacteria; L03.115 Cellulitis of right lower limb; L03.114 Cellulitis of left upper limb; I25.10 Atherosclerotic heart disease of native coronary artery without angina pectoris; I10 Essential (primary) hypertension; E78.00 Pure hypercholesterolemia, unspecified; Z66 Do not resuscitate; B96.89 Other specified bacterial agents as the cause of diseases classified elsewhere; R09.02 Hypoxemia; R26.89 Other abnormalities of gait and mobility; Z79.82 Long term (current) use of aspirin; Z87.891 Personal history of nicotine dependence; Z86.73 Personal history of transient ischemic attack (TIA), and cerebral infarction without residual deficits; Z95.1 Presence of aortocoronary bypass graft; Z79.02 Long term (current) use of antithrombotics/antiplatelets; Z79.899 Other long term (current) drug therapy

== ENCOUNTER 2016-10-21 17:53 | Inpatient (IN) | payer OTHER, BC ==
[~2016-10-21] VITALS: Ht 177.8 cm; Wt 89.2 kg
[~2016-10-21 17:53] MED LIST changes: +ASPI325T4 PO; +CLOP1TAB15 PO; +NTRGSL/4 UT; +PRAV20TA PO; +SENN-61 PO; +TMF75 PO
--- NOTE | 2016-10-21 18:14 | EMERGENCY ROOM VISIT NOTE ---
History Report prepared by Devon: Flower Haynes Under the Supervision of: Dr. Royer Reyes D.O. First contact with patient: 18:02 Chief Complaint: FALL Stated Complaint: FELL,FEVER History of Present Illness The patient is a 86 year old male who presents to the Emergency Room with complaints of an episode fall that occurred just prior to arrival. The patient notes that three hours ago he was having a hard time getting out of his chair. He also notes that he felt weak in his legs and that he often has trouble with his balance. The patient states that he fell down when he went to sit down. He also notes that he couldn't get up without help. He has some right abdominal pain and a fever. He was recently in [place] for a high school reunion and that he states he had a heart attack while there. The patient lives in assisted living with his . Source of History: patient Onset: just prior to arrival Position: other (generalized) Timing: other (episode) Associated Symptoms: + fevers, + abdominal pain, + weakness, No LOC Review of Systems See HPI for pertinent positives & negatives. A total of 10 systems reviewed and were otherwise negative. Past Medical & Surgical Medical Problems: (1) Ambulatory dysfunction (2) CAD (coronary artery disease) (3) Cellulitis of right leg (4) Generalized weakness (5) History of triple bypass (6) Hypertension (7) Influenza A (8) Left lower lobe pneumonia (9) TIA (transient ischemic attack) Surgical Problems: (1) History of cholecystectomy (2) History of knee surgery (3) S/P triple vessel bypass (4) Status post skin graft Family History Patient reports no known family medical history. no pertinent family history stated Social History Smoking Status: Never Smoker Alcohol Use: occasionally Drug Use: none Marital Status: Housing Status: assisted living Occupation Status: retired Current/Historical Medications Scheduled Aspirin (Aspirin), 162.5 MG PO DAILY Clopidogrel (Plavix), 75 MG PO QAM Metoprolol Tartrate (Lopressor), 25 MG PO DAILY Nitroglycerin (Nitrostat), 0.4 MG UT PRN Pravastatin (Pravachol ), 40 MG PO QAM Senna (Senokot), 8.6 MG PO DAILY Scheduled PRN Furosemide (Lasix), 20 MG PO DAILY PRN for EDEMA Allergies Coded Allergies: No Known Allergies (Unverified , 11/24/15) Physical Exam Vital Signs Date Time Temp Pulse Resp B/P (MAP) Pulse Ox O2 Delivery O2 Flow Rate FiO2 10/21/16 20:35 67 18 99/40 94 Nasal Cannula 2.0 10/21/16 19:17 79 18 123/66 92 Room Air 10/21/16 18:58 94 Room Air 10/21/16 17:56 37.7 78 18 139/67 94 Room Air Physical Exam GENERAL: Patient is awake, alert, and in no acute distress. Patient is resting comfortably. Patient is somewhat anxious appearing and answers questions well. EYES: The conjunctivae are clear. The pupils are postsurgical in appearance, Ptosis noted on right eye. EARS, NOSE, MOUTH AND THROAT: The nose is without any evidence of any deformity. Mucous membranes are moist tongue is midline NECK: The neck is nontender and supple. RESPIRATORY: Lung sounds diminished throughout rales to both bases. No tachypnea or conversational dyspnea CARDIOVASCULAR: Regular rate and rhythm noted there no murmurs rubs or gallops normal S1 normal S2 GASTROINTESTINAL: The abdomen is soft. Bowel sounds are present in all quadrants. Abdomen is nontender ABDOMEN: Soft, mildly distended. Distal lower tenderness to palpation, no guarding. BACK: No midline tenderness or or step-off noted range of motion in flexion extension as well as rotation no signs of muscle spasm noted MUSCULOSKELETAL/EXTREMITIES: There is no evidence of gross deformity full range of motion is noted in the hips and shoulders SKIN: There is no obvious evidence of any rash. Pedal edema, stasis, and dermatitis in both lower extremities. Increased swelling and erythema in left lower extremity. Left lower extremity warm to touch. NEUROLOGIC: Patient is awake alert and oriented x3 strength is symmetric but diminished. patellar reflexes are 2+ bilaterally Medical Decision & Procedures ER Provider Diagnostic Interpretation: Radiology results as stated below per my review and radiologist interpretation: LEFT VENOUS DOPP LOWER EXT UNILAT FINDINGS: Left: Common femoral vein: Patent. Femoral vein: Patent. Greater saphenous vein: Patent. Popliteal vein: Patent. Calf veins: Limited visualization secondary to subcutaneous edema. Other: Subcutaneous edema in the lower leg. IMPRESSION: No evidence of deep venous thrombosis. Electronically signed by: Drew Ugalde M.D. HEAD WITHOUT CONTRAST (CT) FINDINGS: No acute intracranial hemorrhage, midline shift, mass, large territorial ischemia or abnormal extra-axial collection. Moderate atrophy is redemonstrated with ex vacuo ventriculomegaly. Scattered areas of white matter low-attenuation are again seen compatible with chronic microvascular ischemic changes. There is evidence of prior bilateral cataract repair. The calvarium is intact. The paranasal sinuses, mastoid air cells, and middle ear cavities are clear. IMPRESSION: 1. No acute intracranial abnormality. 2. Redemonstration of chronic changes as above. The above report was generated using voice recognition software. It may contain grammatical, syntax or spelling errors. Electronically signed by: Jose Fuller M.D. CHEST ONE VIEW PORTABLE FINDINGS: Median sternotomy wires and mediastinal surgical clips again noted. Atherosclerosis of aortic arch. Cardiac silhouette top normal in size. No significant pulmonary vascular prominence. Interval decreased conspicuity of previously noted left basilar opacity. Lungs and pleural spaces are essentially clear. Suggestion of old calcified granuloma or calcified lymph nodes. Scoliotic curvature and degenerative change of the spine. Severe degenerative change of the bilateral glenohumeral joints. Narrowing of the acromiohumeral interval on the right base suggest complete rotator cuff tear. Surgical clip projects over the epigastrium. IMPRESSION: 1. No acute cardiopulmonary disease. Electronically signed by: Drew Ugalde M.D. ABD/PELVIS NO IV OR ORAL CONT FINDINGS: The study is limited without use of IV contrast and patient positioning and movement. Dependent subsegmental groundglass opacities are present with linear consolidative opacity left lung base suggesting atelectasis. No pneumoperitoneum is identified. The inferior cardiac chambers are unremarkable with coronary arterial calcifications noted. 1.5 x 0.9 cm low attenuating lesion of the left hepatic lobe is seen, indeterminate. Additional similar-appearing nonspecific lesion is seen within the lateral left hepatic lobe, 2.0 x 1.2 cm. The spleen and right adrenal gland are unremarkable. There is least moderate pancreatic atrophy. There is a complex lesion of the left adrenal gland, 5.4 x 3.9 x 5.7 cm containing soft tissue attenuation, calcifications in macroscopic fat. There are apparent renal sinus cysts on the left. There is mild right renal atrophy. The ureters and urinary bladder are unremarkable. Prostate is mildly prominent. There are bilateral fat filled hernias with a portion of ileum extending into the left inguinal hernia without evidence of obstruction. Moderate to extensive atherosclerotic plaquing of the aorta and iliac vasculature is noted. No bulky retroperitoneal adenopathy. There is atrophy of the right psoas musculature. There is no bowel obstruction. Duodenal diverticulum is noted. A few fecalized loops of ileum are seen within the left lower quadrant without dilation, nonspecific. Scattered noninflamed diverticula are seen throughout the colon. The appendix is not definitively seen, however no secondary evidence of acute appendicitis. Subxiphoid ventral abdominal wall hernia is noted which is fat filled, diastases 3.4 cm. There is mild diffuse body wall edema, nonspecific. There is moderate atrophy of the paraspinal musculature. Remote rib fractures are seen on the left. Sternotomy wires are partially imaged. Severe facet arthropathy involves the lower lumbar spine. There is convex right curvature of the lumbar spine with severe degenerative changes. IMPRESSION: 1. Limited study as above without evidence of acute appendicitis. No bowel obstruction. 2. Fat filled left inguinal hernia is noted containing fecalized loops of nondilated ileum. 3. Colonic diverticulosis without diverticulitis. 4. Fat filled ventral abdominal wall subxiphoid hernia is noted with diastases of 3.4 cm. 5. 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 6. Additional incidental findings as above. The above report was generated using voice recognition software. It may contain grammatical, syntax or spelling errors. Electronically signed by: Jose Fuller M.D. Laboratory Results 10/21/16 18:35 Red Blood Count 4.74, Mean Corpuscular Volume 90.3, Mean Corpuscular Hemoglobin 30.0, Mean Corpuscular Hemoglobin Concent 33.2, Mean Platelet Volume 9.5, Neutrophils (%) (Auto) 86.7, Lymphocytes (%) (Auto) 3.4, Monocytes (%) (Auto) 9.6, Eosinophils (%) (Auto) 0.0, Basophils (%) (Auto) 0.1, Neutrophils # (Auto) 11.43, Lymphocytes # (Auto) 0.45, Monocytes # (Auto) 1.27, Eosinophils # (Auto) 0.00, Basophils # (Auto) 0.01 10/21/16 18:35 Test 10/21/16 18:35 10/21/16 18:40 10/21/16 18:59 White Blood Count 13.18 K/uL (4.8-10.8) Red Blood Count 4.74 M/uL (4.7-6.1) Hemoglobin 14.2 g/dL (14.0-18.0) Hematocrit 42.8 % (42-52) Mean Corpuscular Volume 90.3 fL (80-100) Mean Corpuscular Hemoglobin 30.0 pg (25-34) Mean Corpuscular Hemoglobin Concent 33.2 g/dl (32-36) Platelet Count 174 K/uL (130-400) Mean Platelet Volume 9.5 fL (7.4-10.4) Neutrophils (%) (Auto) 86.7 % Lymphocytes (%) (Auto) 3.4 % Monocytes (%) (Auto) 9.6 % Eosinophils (%) (Auto) 0.0 % Basophils (%) (Auto) 0.1 % Neutrophils # (Auto) 11.43 K/uL (1.4-6.5) Lymphocytes # (Auto) 0.45 K/uL (1.2-3.4) Monocytes # (Auto) 1.27 K/uL (0.11-0.59) Eosinophils # (Auto) 0.00 K/uL (0-0.5) Basophils # (Auto) 0.01 K/uL (0-0.2) RDW Standard Deviation 51.9 fL (36.4-46.3) RDW Coefficient of Variation 15.8 % (11.5-14.5) Immature Granulocyte % (Auto) 0.2 % Immature Granulocyte # (Auto) 0.02 K/uL (0.00-0.02) Erythrocyte Sedimentation Rate 2 mm/hr (0-14) Prothrombin Time 11.1 SECONDS (9.0-12.0) Prothromb Time International Ratio 1.0 (0.9-1.1) Activated Partial Thromboplast Time 27.5 SECONDS (21.0-31.0) Partial Thromboplastin Ratio 1.1 Anion Gap 5.0 mmol/L (3-11) Est Creatinine Clear Calc Drug Dose 59.8 ml/min Estimated GFR () 81.5 Estimated GFR (Non- 70.3 BUN/Creatinine Ratio 17.7 (10-20) Calcium Level 9.2 mg/dl (8.5-10.1) Phosphorus Level 2.2 mg/dl (2.5-4.9) Magnesium Level 2.2 mg/dl (1.8-2.4) Total Bilirubin 2.1 mg/dl (0.2-1) Aspartate Amino Transf (AST/SGOT) 16 U/L (15-37) Alanine Aminotransferase (ALT/SGPT) 18 U/L (12-78) Alkaline Phosphatase 60 U/L (45-117) Total Creatine Kinase 51 U/L (39-308) Creatine Kinase MB 2.3 ng/ml (0.5-3.6) Creatine Kinase MB Ratio 4.5 (0-3.0) Troponin I < 0.015 ng/ml (0-0.045) C-Reactive Protein 2.42 mg/dl (0-0.29) Pro-B-Type Natriuretic Peptide 824 pg/ml (0-1800) Total Protein 6.8 gm/dl (6.4-8.2) Albumin 3.6 gm/dl (3.4-5.0) Globulin 3.2 gm/dl (2.5-4.0) Albumin/Globulin Ratio 1.1 (0.9-2) Lipase 79 U/L (73-393) Bedside Lactic Acid Venous 1.04 mmol/L (0.90-1.70) Venous Blood pH 7.45 (7.36-7.41) Venous Blood Partial Pressure CO2 38 mmHg (38.0-50.0) Venous Blood Partial Pressure O2 38 mmHg Venous Blood HCO3 26 mmol/L Venous Blood Oxygen Saturation 73.2 % Venous Blood Base Excess 2.0 mEq/L Laboratory results per my review. Medications Administered Medications (Trade) Dose Ordered Sig/Agnes Route Start Time Stop Time Status Last Admin Dose Admin Acetaminophen (Tylenol Tab) 650 mg ONE ONCE PO 10/21/16 18:15 10/21/16 18:16 DC 10/21/16 19:12 650 MG Ceftriaxone Sodium (Rocephin Inj) 1 gm NOW STAT IV 10/21/16 20:01 10/21/16 20:02 DC 10/21/16 20:31 1 GM ECG Indication: other (fall) Rate (beats per minute): 80 Rhythm: normal sinus Findings: RBBB, other (no PVC) Comparison ECG Date: 05/31/16 Change: RBBB new since last EKG ED Course 1802: The patient was evaluated in room B8. A complete history and physical examination were performed. 1814: Tylenol Tab 650 mg PO. 2000: Rocephin Inj 1 gm IV. 2032: I discussed the patient's case with Dr. Bhandari. 2205: Upon reevaluation, the patient is resting. I discussed results and treatment plan with the patient. He verbalizes agreement and understanding. I spoke with Dr. Samuel of the [facility] Hospitalist service. The patient will be evaluated for further management and care. Medical Decision Differential diagnosis: Etiologies such as metabolic, infection, hypo/hyperglycemia, electrolyte abnormalities, cardiac sources, intracerebral event, toxicologic, neurologic, as well as others were entertained. Nursing notes reviewed. Additional history is obtained from the patient's significant other. The patient is an 86-year-old male who presented to the emergency department for an evaluation of fever and generalized weakness. The patient had a fall earlier this evening at his independent living home. He was unable to stand and required assistance. The patient was treated with IV fluids and IV antibiotics. On physical exam he does appear to have signs of cellulitis on his left leg. I discussed the patient's laboratory and radiographic studies with him. Because of his age and comorbidities I also discussed his case with the on-call [facility] hospitalist group. They've agreed to evaluate the patient in the emergency department for further management and disposition. Medication Reconcilliation Current Medication List: was personally reviewed by me Blood Pressure Screening Patient's blood pressure: Normal blood pressure Consults Time Called: 2029 Consulting Physician: Dr. Bhandari Returned Call: 2032 discussed the patient's case Additional Consults: Time Called: 2204 Consulted Physician: Dr. Carrillo Returned Call: 2205 Additional Comments: The patient will be evaluated for further management. Impression Primary Impression: Left leg cellulitis Additional Impressions: Weakness Fever Scribe Attestation The scribe's documentation has been prepared under my direction and personally reviewed by me in its entirety. I confirm that the note above accurately reflects all work, treatment, procedures, and medical decision making performed by me. Departure Information Dispostion Being Evaluated By Hospitalist Referrals Drew Aldrich M.D. (PCP) Patient Instructions My [facility] Problem Qualifiers
[2016-10-21] MEDS ORDERED: ACETAMINOPHEN 325 MG TAB PO ONE (18:15)
[2016-10-21 18:50] LABS: BASO % 0.1 %; BASO ABS # 0.01 K/uL (0-0.2); COMPLETE YES; HEMATOCRIT 42.8 % (42-52); IG% 0.2 %; LYMPH % 3.4 %; LYMPH ABS # 0.45 K/uL (1.2-3.4); MEAN CELL VOLUME 90.3 fL (80-100); MEAN CORPUSCULAR HGB CONC 33.2 g/dl (32-36); MEAN PLATELET VOLUME 9.5 fL (7.4-10.4); MONO % 9.6 %; NEUT % 86.7 %; PLATELET COUNT 174 K/uL (130-400); RED BLOOD COUNT 4.74 M/uL (4.7-6.1); WHITE BLOOD COUNT 13.18 K/uL (4.8-10.8)
--- NOTE | 2016-10-21 18:56 | DIAGNOSTIC IMAGING REPORT ---
CHEST ONE VIEW PORTABLE CLINICAL HISTORY: 86 years-old Male presenting with Sepsis. TECHNIQUE: Portable upright AP view of the chest was obtained. COMPARISON: 05/28/2016. FINDINGS: Median sternotomy wires and mediastinal surgical clips again noted. Atherosclerosis of aortic arch. Cardiac silhouette top normal in size. No significant pulmonary vascular prominence. Interval decreased conspicuity of previously noted left basilar opacity. Lungs and pleural spaces are essentially clear. Suggestion of old calcified granuloma or calcified lymph nodes. Scoliotic curvature and degenerative change of the spine. Severe degenerative change of the bilateral glenohumeral joints. Narrowing of the acromiohumeral interval on the right base suggest complete rotator cuff tear. Surgical clip projects over the epigastrium. IMPRESSION: 1. No acute cardiopulmonary disease. Electronically signed by: Drew Ugalde M.D. 10/21/2016 6:55 PM Dictated Date/Time: 10/21/2016 6:52 PM
[2016-10-21 19:01] LABS: PARTIAL THROMBOPLASTIN RATIO 1.1; PROTHROMBIN TIME (PATIENT) 11.1 SECONDS (9.0-12.0)
[2016-10-21 19:09] LABS: ALT/SGPT 18 U/L (12-78); BLOOD UREA NITROGEN 17 mg/dl (7-18); BUN/CREATININE RATIO 17.7 (10-20); C-REACTIVE PROTEIN 2.42 mg/dl (0-0.29); CALCIUM 9.2 mg/dl (8.5-10.1); CARBON DIOXIDE 29 mmol/L (21-32); CHLORIDE 106 mmol/L (98-107); CREATININE 0.96 mg/dl (0.60-1.40); GLUCOSE 112 mg/dl (70-99); MAGNESIUM 2.2 mg/dl (1.8-2.4); POTASSIUM 4.3 mmol/L (3.5-5.1); SODIUM 140 mmol/L (136-145)
[2016-10-21 19:13] LABS: ALB/GLOB RATIO 1.1 (0.9-2); ALKALINE PHOSPHATASE 60 U/L (45-117); AST/SGOT 16 U/L (15-37); CKMB/CK RATIO 4.5 (0-3.0); PHOSPHORUS 2.2 mg/dl (2.5-4.9)
[2016-10-21 19:17] LABS: VEN BLD GAS O2 SATURATION 73.2 %
[2016-10-21] MEDS ORDERED: LPR25 PO (19:31)
--- NOTE | 2016-10-21 19:36 | DIAGNOSTIC IMAGING REPORT ---
HEAD WITHOUT CONTRAST (CT) CLINICAL HISTORY: 86 years-old Male with acute weakness. TECHNIQUE: Multiple axial CT images of the head were obtained without contrast. A dose lowering technique was utilized adhering to the principles of ALARA. COMPARISON: CT head 11/24/2015 FINDINGS: No acute intracranial hemorrhage, midline shift, mass, large territorial ischemia or abnormal extra-axial collection. Moderate atrophy is redemonstrated with ex vacuo ventriculomegaly. Scattered areas of white matter low-attenuation are again seen compatible with chronic microvascular ischemic changes. There is evidence of prior bilateral cataract repair. The calvarium is intact. The paranasal sinuses, mastoid air cells, and middle ear cavities are clear. IMPRESSION: 1. No acute intracranial abnormality. 2. Redemonstration of chronic changes as above. The above report was generated using voice recognition software. It may contain grammatical, syntax or spelling errors. Electronically signed by: Jose Fuller M.D. 10/21/2016 7:35 PM Dictated Date/Time: 10/21/2016 7:33 PM
--- NOTE | 2016-10-21 19:58 | DIAGNOSTIC IMAGING REPORT ---
LEFT VENOUS DOPP LOWER EXT UNILAT CLINICAL HISTORY: 86 years-old Male presenting with LLE swelling. TECHNIQUE: Real-time grayscale and color and spectral Doppler ultrasound imaging of the veins of the left lower extremity was performed. Compression and augmentation were also utilized. COMPARISON: 03/05/2015. FINDINGS: Left: Common femoral vein: Patent. Femoral vein: Patent. Greater saphenous vein: Patent. Popliteal vein: Patent. Calf veins: Limited visualization secondary to subcutaneous edema. Other: Subcutaneous edema in the lower leg. IMPRESSION: No evidence of deep venous thrombosis. Electronically signed by: Drew Ugalde M.D. 10/21/2016 7:57 PM Dictated Date/Time: 10/21/2016 7:56 PM
--- NOTE | 2016-10-21 19:59 | DIAGNOSTIC IMAGING REPORT ---
ABD/PELVIS NO IV OR ORAL CONT HISTORY: 86 years-old Male acute right lower quadrant abdominal pain. COMPARISON: None available TECHNIQUE: Multiple axial CT images of the abdomen and pelvis were obtained without contrast. A dose lowering technique was used consistent with the principals of LOREN. FINDINGS: The study is limited without use of IV contrast and patient positioning and movement. Dependent subsegmental groundglass opacities are present with linear consolidative opacity left lung base suggesting atelectasis. No pneumoperitoneum is identified. The inferior cardiac chambers are unremarkable with coronary arterial calcifications noted. 1.5 x 0.9 cm low attenuating lesion of the left hepatic lobe is seen, indeterminate. Additional similar-appearing nonspecific lesion is seen within the lateral left hepatic lobe, 2.0 x 1.2 cm. The spleen and right adrenal gland are unremarkable. There is least moderate pancreatic atrophy. There is a complex lesion of the left adrenal gland, 5.4 x 3.9 x 5.7 cm containing soft tissue attenuation, calcifications in macroscopic fat. There are apparent renal sinus cysts on the left. There is mild right renal atrophy. The ureters and urinary bladder are unremarkable. Prostate is mildly prominent. There are bilateral fat filled hernias with a portion of ileum extending into the left inguinal hernia without evidence of obstruction. Moderate to extensive atherosclerotic plaquing of the aorta and iliac vasculature is noted. No bulky retroperitoneal adenopathy. There is atrophy of the right psoas musculature. There is no bowel obstruction. Duodenal diverticulum is noted. A few fecalized loops of ileum are seen within the left lower quadrant without dilation, nonspecific. Scattered noninflamed diverticula are seen throughout the colon. The appendix is not definitively seen, however no secondary evidence of acute appendicitis. Subxiphoid ventral abdominal wall hernia is noted which is fat filled, diastases 3.4 cm. There is mild diffuse body wall edema, nonspecific. There is moderate atrophy of the paraspinal musculature. Remote rib fractures are seen on the left. Sternotomy wires are partially imaged. Severe facet arthropathy involves the lower lumbar spine. There is convex right curvature of the lumbar spine with severe degenerative changes. IMPRESSION: 1. Limited study as above without evidence of acute appendicitis. No bowel obstruction. 2. Fat filled left inguinal hernia is noted containing fecalized loops of nondilated ileum. 3. Colonic diverticulosis without diverticulitis. 4. Fat filled ventral abdominal wall subxiphoid hernia is noted with diastases of 3.4 cm. 5. 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 6. Additional incidental findings as above. The above report was generated using voice recognition software. It may contain grammatical, syntax or spelling errors. Electronically signed by: Jose Fuller M.D. 10/21/2016 7:57 PM Dictated Date/Time: 10/21/2016 7:46 PM
[2016-10-21] MEDS ORDERED: CEFTRIAXONE SOD INJ 1 GM ADDVIAL IV STA (20:01)
[2016-10-21] MEDS ORDERED: NITROGLYCERIN 0.4 MG SL PER TAB CHARGE UT SCH (22:30)
[2016-10-21] MEDS ORDERED: MAGNESIUM HYDROXIDE SUSP 30 ML UDC PO PRN (22:30)
[2016-10-21] MEDS ORDERED: ONDANSETRON INJ 2 MG/ML 2 ML VIAL IV PRN (22:30)
[2016-10-21] MEDS ORDERED: ALUMINUM/MAGNESIUM/SIMETH (MAALOX MAX) 30 ML UDC PO PRN (22:30)
[2016-10-21] MEDS ORDERED: ACETAMINOPHEN 325 MG TAB PO PRN (22:30)
[2016-10-21] MEDS ORDERED: POLYETHYLENE (MIRALAX) 17 GM PACK PO PRN (22:30)
--- NOTE | 2016-10-21 22:34 | History and Physical ---
History & Physical Date of Service Oct 21, 2016. History & Physical admit #[id number]
--- NOTE | 2016-10-21 23:11 | HISTORY & PHYSICAL EXAMINATION ---
DATE OF ADMISSION: 10/21/2016 CHIEF COMPLAINT: Fever and weakness. HISTORY OF PRESENT ILLNESS: The history is actually entirely taken from the ER physician and the patient's as by the time I see the patient, he is very fatigued and sleeping, and while the offers no concerns about this because the patient just seems to be tired, he does not wake up for any HPI or review of systems himself. It appears that he was feeling kind of weak and then couple hours before admission he was having a hard time getting out of his chair, his legs were weak, he was having trouble with his balance and then he fell whenever he went to sit down and then he could not really get up without any help. Shortly after that, he had fever and was brought here for further evaluation. On workup, his eval is fairly bland; however, he was noted to have what appears to be a mild degree of left lower extremity cellulitis. We were asked to see him for further admission, evaluation and treatment. Most pertinently on review of systems, his notes that he is generally always a bit off balance, generally a fall risk. He has had falls in the past even whenever he is not acutely ill including a fall at a restaurant a little over a year ago that resulted in enough of leg injury that it required skin grafting. REVIEW OF SYSTEMS: Otherwise negative as best can be ascertained except for as above. PAST MEDICAL HISTORY: Includes ambulatory dysfunction, coronary artery disease, leg wound with prior skin grafting, TIA, hypertension, hyperlipidemia. SURGICAL HISTORY: Includes coronary artery bypass grafting x3, skin grafting, knee surgery, cholecystectomy. FAMILY HISTORY: Negative for coronary artery disease. SOCIAL HISTORY: No tobacco. He is , lives with his in assisted living. ALLERGIES: No known drug allergies. MEDICATIONS: He is on aspirin 162.5 mg daily, Plavix 75 mg daily, Lopressor 25 mg daily, nitroglycerin 0.4 under the tongue p.r.n. chest pain, Pravachol 40 mg daily, Senna 8.5 daily, Lasix 20 mg daily p.r.n. edema. PHYSICAL EXAMINATION: VITAL SIGNS: Temperature here was 37.7, although the notes he was as high as 103 Fahrenheit at home, pulse 78, respiratory rate 18, blood pressure initially 139/67, now 99/40, 94% on room air. GENERAL: He is sleeping comfortably, does not wake up during the exam, but again it appears it is really just because he is exhausted, not because of anything worrisome. He is in no acute distress. HEENT: Normocephalic, atraumatic. Mucous membranes slightly dry. CARDIOVASCULAR: Regular without rubs, murmurs or gallops. LUNGS: Clear to auscultation bilaterally. No rales, rhonchi or wheezes, with good effort. ABDOMEN: Soft, nondistended, no apparent tenderness. No guarding, rebound or rigidity. No masses or organomegaly. EXTREMITIES: Without cyanosis or clubbing. He has chronic appearing edema of bilateral lower extremities, the left is greater than the right. The left is also warm and slightly more red than the right. The skin is slightly more tense. There is no open wound, although there are chronic skin grafting appearing sites. No exudate, no fluctuance, no crepitus. The remainder of his skin shows a flushed face. Otherwise, no rashes, no pallor or icterus. MUSCULOSKELETAL: No gross lesions. NEUROLOGIC: No focal deficits. LABORATORY DATA AND DIAGNOSTICS: CBC with a white count of 13.2, 87% neutrophils, hemoglobin 14.2, platelets 174. Complete metabolic panel with sodium 140, potassium 4.3, chloride 106, CO2 of 29, BUN 17, creatinine 0.96, calcium 9.2, glucose 112. Phos 2.2, mag 2.2, total bilirubin 2.1, AST 16, ALT 18, alkaline phosphatase 60. CK total of 51 with an MB of 2.3, troponin of less than 0.015. CRP of 2.42, BNP of 824, total protein 6.8, albumin 3.6, lipase 79. PT of 11.1, PTT of 27.5. Lower extremity venous Doppler showed no evidence of DVT. Head CT shows no intracranial abnormality. Microvascular ischemic changes noted similar to prior. Chest x-ray shows no acute cardiopulmonary disease. 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 ASSESSMENT AND PLAN: 1. Weakness. This appears to be due to his febrile illness. 2. Febrile illness/probable mild sepsis. Given his white count of 13.1 and his fever of 103 at home, he probably has a mild degree of sepsis from left lower extremity cellulitis. He has been started on Rocephin in the ER, we will continue this. Obviously, if it worsens, we will need to cover for resistant gram-positives, but at this point in time, given that he is mildly septic and the infection appears to be fairly contained, we will continue with this. Given that the infection is also appearing to be very mild, we will follow for serial exams and serial labs to ensure nothing else is "brewing" beneath the surface, although at this point in time, there are no signs and symptoms of other infectious processes at play. 3. Weakness due to above. PT/OT eval and treat. 4. Coronary artery disease, appears to be stable. Continue his home meds. 5. Hypertension. He is now borderline with his blood pressures, he will be given IV fluids. We will hold off on his Lasix obviously but continue his metoprolol with appropriate hold parameters. 6. Mild dehydration. IV fluids. Hold the Lasix as above. 7. Deep venous thrombosis prophylaxis with Lovenox.
[2016-10-21] MEDS ORDERED: IV FLUIDS COMPLETED PRN (23:45)
[2016-10-22 00:05] VITALS: BP 111/61; PULSE 68; TEMP 37.5; O2SAT 97; Ht 177.8 cm; Wt 89.2 kg
[2016-10-22] MEDS: SODIUM CHLOR 0.45% + 20MEQ KCL 1,000 ML IV SCH ×3 (00:47→21:23)
[2016-10-22 03:05] VITALS: TEMP 37.7
[2016-10-22 05:51] LABS: BASO % 0.1 %; BASO ABS # 0.01 K/uL (0-0.2); COMPLETE YES; EOS % 0.2 %; HEMATOCRIT 38.5 % (42-52); IG% 0.1 %; LYMPH % 9.4 %; LYMPH ABS # 0.76 K/uL (1.2-3.4); MEAN CELL VOLUME 90.4 fL (80-100); MEAN CORPUSCULAR HEMOGLOBIN 28.6 pg (25-34); MEAN CORPUSCULAR HGB CONC 31.7 g/dl (32-36); MONO % 13.4 %; NEUT % 76.8 %; PLATELET COUNT 148 K/uL (130-400); RED BLOOD COUNT 4.26 M/uL (4.7-6.1); WHITE BLOOD COUNT 8.06 K/uL (4.8-10.8)
[2016-10-22 06:28] LABS: BUN/CREATININE RATIO 17.4 (10-20); CALCIUM 8.4 mg/dl (8.5-10.1); CREATININE 0.86 mg/dl (0.60-1.40)
[2016-10-22 08:21] VITALS: BP 123/61; PULSE 58; TEMP 37; O2SAT 95
[2016-10-22] MEDS: SENNA 8.6 MG TAB PO SCH (08:23)
[2016-10-22] MEDS: ASPIRIN 81 MG ECTAB PO SCH (08:23)
[2016-10-22] MEDS: PRAVASTATIN SOD 20 MG TAB PO SCH (08:23)
[2016-10-22] MEDS: ENOXAPARIN 40 MG/0.4 ML SYR SQ SCH (08:23)
[2016-10-22] MEDS: CLOPIDOGREL BISULFATE 75 MG TAB PO SCH (08:23)
[2016-10-22] MEDS: METOPROLOL TARTRATE 25 MG TAB PO SCH (08:23)
--- NOTE | 2016-10-22 12:46 | Progress Note ---
Subjective Date of Service: Oct 22, 2016. Subjective Pt evaluation today including: conversation w/ patient, physical exam, chart review, lab review, review of studies, review of inpatient medication list Reports lower ext weakness No fevers or chills No other concerns noted No acute events overnight Problem List Medical Problems: (1) Cellulitis of right leg Status: Acute (2) Closed head injury Status: Acute (3) Facial laceration Status: Acute (4) Fall Status: Acute (5) Fever Status: Acute (6) Fever Status: Acute (7) Hypoxia Status: Acute (8) Left leg cellulitis Status: Acute (9) Rib fracture Status: Acute (10) Skin tear of left forearm without complication Status: Acute (11) Weakness Status: Acute Review of Systems Constitutional: + weakness, + fatigue, No fever, No chills, No sweats Eyes: No worsening of vision, No eye pain, No redness, No discharge Respiratory: No cough, No sputum, No wheezing, No shortness of breath, No dyspnea on exertion Cardiac: No chest pain, No orthopnea, No PND, No edema, No claudication Abdomen: No pain, No nausea, No vomiting, No diarrhea, No constipation Musculoskeletal: No joint pain, No muscle pain, No swelling, No calf pain Male : No dysuria, No urinary frequency, No incontinence, No slowing stream Neurologic: + weakness (lower ext weakness), No memory loss, No paralysis, No numbness/tingling Psychiatric: No depression symptoms, No anhedonism, No anxiety, No insomnia Endo: No fatigue, No excessive thirst, No excessive urination Skin: No rash, No itch Objective Vital Signs Date Time Temp Pulse Resp B/P (MAP) Pulse Ox O2 Delivery O2 Flow Rate FiO2 10/22/16 08:30 Nasal Cannula 2.0 10/22/16 08:21 37.0 58 20 123/61 (81) 95 2.0 10/22/16 03:05 37.7 10/22/16 00:05 37.5 68 18 111/61 97 Nasal Cannula 2.0 10/21/16 23:34 70 18 111/61 97 10/21/16 22:36 60 18 114/50 98 Nasal Cannula 2.0 10/21/16 20:35 67 18 99/40 94 Nasal Cannula 2.0 10/21/16 19:17 79 18 123/66 92 Room Air 10/21/16 18:58 94 Room Air 10/21/16 17:56 37.7 78 18 139/67 94 Room Air Physical Exam General Appearance: WD/WN, no apparent distress Eyes: normal inspection, PERRL, EOMI, sclerae normal Neck: supple, no adenopathy, thyroid normal, no JVD Respiratory/Chest: chest non-tender, lungs clear, normal breath sounds, no respiratory distress Cardiovascular: no edema, no gallop, no JVD, no murmur Abdomen: normal bowel sounds, non tender, soft, no organomegaly Extremities: normal range of motion, non-tender, normal inspection, no pedal edema Neurologic/Psychiatric: alert, normal mood/affect, oriented x 3, + motor weakness (lower ext weakness 3/5) Laboratory Results Last 24 Hours Test 10/21/16 18:35 10/21/16 18:40 10/21/16 18:59 10/22/16 05:35 White Blood Count 13.18 K/uL 8.06 K/uL Red Blood Count 4.74 M/uL 4.26 M/uL Hemoglobin 14.2 g/dL 12.2 g/dL Hematocrit 42.8 % 38.5 % Mean Corpuscular Volume 90.3 fL 90.4 fL Mean Corpuscular Hemoglobin 30.0 pg 28.6 pg Mean Corpuscular Hemoglobin Concent 33.2 g/dl 31.7 g/dl Platelet Count 174 K/uL 148 K/uL Mean Platelet Volume 9.5 fL 9.0 fL Neutrophils (%) (Auto) 86.7 % 76.8 % Lymphocytes (%) (Auto) 3.4 % 9.4 % Monocytes (%) (Auto) 9.6 % 13.4 % Eosinophils (%) (Auto) 0.0 % 0.2 % Basophils (%) (Auto) 0.1 % 0.1 % Neutrophils # (Auto) 11.43 K/uL 6.18 K/uL Lymphocytes # (Auto) 0.45 K/uL 0.76 K/uL Monocytes # (Auto) 1.27 K/uL 1.08 K/uL Eosinophils # (Auto) 0.00 K/uL 0.02 K/uL Basophils # (Auto) 0.01 K/uL 0.01 K/uL RDW Standard Deviation 51.9 fL 53.1 fL RDW Coefficient of Variation 15.8 % 16.2 % Immature Granulocyte % (Auto) 0.2 % 0.1 % Immature Granulocyte # (Auto) 0.02 K/uL 0.01 K/uL Erythrocyte Sedimentation Rate 2 mm/hr Prothrombin Time 11.1 SECONDS Prothromb Time International Ratio 1.0 Activated Partial Thromboplast Time 27.5 SECONDS Partial Thromboplastin Ratio 1.1 Sodium Level 140 mmol/L 139 mmol/L Potassium Level 4.3 mmol/L 4.0 mmol/L Chloride Level 106 mmol/L 107 mmol/L Carbon Dioxide Level 29 mmol/L 27 mmol/L Anion Gap 5.0 mmol/L 5.0 mmol/L Blood Urea Nitrogen 17 mg/dl 15 mg/dl Creatinine 0.96 mg/dl 0.86 mg/dl Est Creatinine Clear Calc Drug Dose 59.8 ml/min 66.7 ml/min Estimated GFR () 81.5 89.7 Estimated GFR (Non- 70.3 77.4 BUN/Creatinine Ratio 17.7 17.4 Random Glucose 112 mg/dl 97 mg/dl Calcium Level 9.2 mg/dl 8.4 mg/dl Phosphorus Level 2.2 mg/dl Magnesium Level 2.2 mg/dl Total Bilirubin 2.1 mg/dl Aspartate Amino Transf (AST/SGOT) 16 U/L Alanine Aminotransferase (ALT/SGPT) 18 U/L Alkaline Phosphatase 60 U/L Total Creatine Kinase 51 U/L Creatine Kinase MB 2.3 ng/ml Creatine Kinase MB Ratio 4.5 Troponin I < 0.015 ng/ml C-Reactive Protein 2.42 mg/dl Pro-B-Type Natriuretic Peptide 824 pg/ml Total Protein 6.8 gm/dl Albumin 3.6 gm/dl Globulin 3.2 gm/dl Albumin/Globulin Ratio 1.1 Lipase 79 U/L Bedside Lactic Acid Venous 1.04 mmol/L Venous Blood pH 7.45 Venous Blood Partial Pressure CO2 38 mmHg Venous Blood Partial Pressure O2 38 mmHg Venous Blood HCO3 26 mmol/L Venous Blood Oxygen Saturation 73.2 % Venous Blood Base Excess 2.0 mEq/L Assessment and Plan Weakness. This appears to be due to his febrile illness vs generalized deconditioning, pt reports minimal activity at home blood cx pending but unlikely infection as main culprit but certainly contributory. Cont antibx at this time. PT/OT consulted. Febrile illness/probable mild sepsis. Given his white count of 13.1 and his fever of 103 at home, he probably has a mild degree of sepsis from left lower extremity cellulitis. He has been started on Rocephin in the ER, we will continue this. Leukocytosis resolved. Coronary artery disease, appears to be stable. Continue his home meds. Hypertension. He is now borderline with his blood pressures, he will be given IV fluids. We will hold off on his Lasix obviously but continue his metoprolol with appropriate hold parameters. Mild dehydration. IV fluids. Hold the Lasix as above. Deep venous thrombosis prophylaxis with Lovenox.
[2016-10-22 16:10] VITALS: BP 143/72; PULSE 57; TEMP 36.8; O2SAT 94
[2016-10-22] MEDS: CEFTRIAXONE SOD INJ 1,000 MG in DEXTROSE 5% 50ML 50 ML IV SCH (20:54)
[2016-10-23 00:29] VITALS: BP 154/71; PULSE 60; TEMP 36.6; O2SAT 96
[2016-10-23] MEDS: SODIUM CHLOR 0.45% + 20MEQ KCL 1,000 ML IV SCH (06:05)
[2016-10-23 07:56] VITALS: BP 129/53; PULSE 57; TEMP 36.6; O2SAT 94
[2016-10-23] MEDS: SENNA 8.6 MG TAB PO SCH (08:00)
[2016-10-23 08:10] VITALS: PULSE 62
[2016-10-23] MEDS: ENOXAPARIN 40 MG/0.4 ML SYR SQ SCH (08:14)
[2016-10-23] MEDS: CLOPIDOGREL BISULFATE 75 MG TAB PO SCH (08:14)
[2016-10-23] MEDS: PRAVASTATIN SOD 20 MG TAB PO SCH (08:14)
[2016-10-23] MEDS: METOPROLOL TARTRATE 25 MG TAB PO SCH (08:14)
[2016-10-23] MEDS: ASPIRIN 81 MG ECTAB PO SCH (08:14)
[2016-10-23] MEDS ORDERED: NURSING VERBAL MED ORDER ONE (13:00)
--- NOTE | 2016-10-23 15:50 | Progress Note ---
Subjective Date of Service: Oct 23, 2016. Subjective Pt evaluation today including: conversation w/ patient, physical exam, chart review, lab review, review of studies, review of inpatient medication list Resting comfortably in bed States continued generalized weakness Tangential in speech Problem List Medical Problems: (1) Cellulitis of right leg Status: Acute (2) Closed head injury Status: Acute (3) Facial laceration Status: Acute (4) Fall Status: Acute (5) Fever Status: Acute (6) Fever Status: Acute (7) Hypoxia Status: Acute (8) Left leg cellulitis Status: Acute (9) Rib fracture Status: Acute (10) Skin tear of left forearm without complication Status: Acute (11) Weakness Status: Acute Review of Systems Constitutional: + weakness, No fever, No chills, No sweats Eyes: No worsening of vision, No eye pain, No redness, No discharge Respiratory: No cough, No sputum, No wheezing, No shortness of breath Cardiac: No chest pain, No orthopnea, No PND, No edema Abdomen: No pain, No nausea, No vomiting, No diarrhea, No constipation Musculoskeletal: No joint pain, No muscle pain, No swelling, No calf pain Male : No dysuria, No urinary frequency, No incontinence, No slowing stream Neurologic: No memory loss, No paralysis, No weakness, No numbness/tingling Psychiatric: No depression symptoms, No anhedonism, No anxiety, No insomnia Endo: No fatigue, No excessive thirst Skin: No rash, No itch Objective Vital Signs Date Time Temp Pulse Resp B/P (MAP) Pulse Ox O2 Delivery O2 Flow Rate FiO2 10/23/16 08:00 Room Air 10/23/16 07:56 36.6 57 18 129/53 (78) 94 Room Air 10/23/16 00:29 36.6 60 18 154/71 (98) 96 Room Air 10/23/16 00:05 Room Air 10/22/16 20:05 Room Air 10/22/16 16:10 36.8 57 20 143/72 (95) 94 Room Air 10/22/16 16:00 Nasal Cannula 2.0 Physical Exam General Appearance: WD/WN, no apparent distress Eyes: normal inspection, PERRL, EOMI, sclerae normal Neck: supple, no adenopathy, thyroid normal, no JVD, no carotid bruits Respiratory/Chest: chest non-tender, lungs clear, normal breath sounds, no respiratory distress Cardiovascular: no edema, no gallop, no JVD, no murmur Abdomen: normal bowel sounds, non tender, soft, no organomegaly Extremities: normal range of motion, non-tender, normal inspection, no pedal edema Neurologic/Psychiatric: alert, normal mood/affect, oriented x 3, + motor weakness (bilateral lower ext weakness) Assessment and Plan Weakness. This appears to be due to his febrile illness vs generalized deconditioning, pt reports minimal activity at home blood cx pending but unlikely infection as main culprit but certainly contributory. Cont antibx at this time. PT/OT consulted. Febrile illness/probable mild sepsis. Given his white count of 13.1 and his fever of 103 at home, he probably has a mild degree of sepsis from left lower extremity cellulitis. Cont rocephin. Leukocytosis resolved. Coronary artery disease, appears to be stable. Continue his home meds. Hypertension. DC IVF, cont metoprolol Deep venous thrombosis prophylaxis with Lovenox.
[2016-10-23 16:17] VITALS: BP 129/63; PULSE 51; TEMP 36.5; O2SAT 94
[2016-10-23] MEDS: CEFTRIAXONE SOD INJ 1,000 MG in DEXTROSE 5% 50ML 50 ML IV SCH (20:04)
[2016-10-24 00:13] VITALS: BP 152/68; PULSE 69; TEMP 37; O2SAT 96
[2016-10-24 08:04] VITALS: BP 152/64; PULSE 63; TEMP 36.9; O2SAT 92
[2016-10-24] MEDS: ASPIRIN 81 MG ECTAB PO SCH (08:53)
[2016-10-24] MEDS: CLOPIDOGREL BISULFATE 75 MG TAB PO SCH (08:53)
[2016-10-24] MEDS: METOPROLOL TARTRATE 25 MG TAB PO SCH (08:54)
[2016-10-24] MEDS: ENOXAPARIN 40 MG/0.4 ML SYR SQ SCH (08:54)
[2016-10-24] MEDS: SENNA 8.6 MG TAB PO SCH (08:54)
[2016-10-24] MEDS: PRAVASTATIN SOD 20 MG TAB PO SCH (08:54)
--- NOTE | 2016-10-24 08:55 | Progress Note ---
Subjective Date of Service: Oct 24, 2016. Subjective Pt evaluation today including: conversation w/ patient, chart review, lab review, review of studies, conversation w/ [employer] consultant, review of inpatient medication list Voiding: incontinence Report continue have left lower extremity swelling, mild red, the red is better, reported incontinence, which is not new, history of prostate condition possible BPH. Problem List Medical Problems: (1) Cellulitis of right leg Status: Acute (2) Closed head injury Status: Acute (3) Facial laceration Status: Acute (4) Fall Status: Acute (5) Fever Status: Acute (6) Fever Status: Acute (7) Hypoxia Status: Acute (8) Left leg cellulitis Status: Acute (9) Rib fracture Status: Acute (10) Skin tear of left forearm without complication Status: Acute (11) Weakness Status: Acute Review of Systems Constitutional: + weakness, + fatigue, No fever, No chills, No sweats, No weight loss, No problem reported Eyes: No worsening of vision, No eye pain, No redness, No discharge, No diplopia ENT: No hearing loss, No unusual epistaxis, No nasal symptoms, No sore throat, No tinnitus, No dental problems, No trouble swallowing Respiratory: No cough, No sputum, No wheezing, No shortness of breath, No dyspnea on exertion, No dyspnea at rest, No hemoptysis Cardiac: No chest pain, No orthopnea, No PND, No edema, No claudication, No palpitations Abdomen: No pain, No nausea, No vomiting, No diarrhea, No constipation Musculoskeletal: No joint pain, No muscle pain, No swelling, No calf pain Male : + incontinence, No dysuria, No urinary frequency, No nocturia more than once/night, No slowing stream, No hematuria Neurologic: No memory loss, No paralysis, No weakness, No numbness/tingling, No vertigo, No balance problems Psychiatric: No depression symptoms, No anhedonism, No anxiety, No insomnia, No substance abuse Heme: No abnormal bleeding/bruising, No clotting problems, No swollen lymph nodes, No night sweats Endo: No fatigue, No excessive thirst, No excessive urination Skin: + see HPI, + rash, No itch, No new/changing skin lesions, No color change , No bleeding Objective Vital Signs Date Time Temp Pulse Resp B/P (MAP) Pulse Ox O2 Delivery O2 Flow Rate FiO2 10/24/16 08:04 36.9 63 18 152/64 (93) 92 Room Air 10/24/16 00:13 37.0 69 18 152/68 (96) 96 Room Air 10/24/16 00:05 Room Air 10/23/16 20:05 Room Air 10/23/16 16:17 36.5 51 20 129/63 (85) 94 Room Air 10/23/16 16:00 Room Air Physical Exam General Appearance: WD/WN, no apparent distress, + pertinent finding ( conversational,) Eyes: normal inspection, PERRL, EOMI, sclerae normal ENT: normal ENT inspection, hearing grossly normal, pharynx normal Neck: supple, no adenopathy, thyroid normal, no JVD, no carotid bruits, trachea midline Respiratory/Chest: chest non-tender, lungs clear, normal breath sounds, no respiratory distress, no accessory muscle use, + decreased breath sounds Cardiovascular: regular rate, rhythm, no edema, no gallop, no JVD, no murmur Abdomen: normal bowel sounds, non tender, soft, no organomegaly, no pulsatile mass Extremities: normal range of motion, non-tender, normal inspection, no pedal edema, no calf tenderness, normal capillary refill, pelvis stable, + swelling ( left lower extremity swelling 1+) 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 Possible from cellulitis Cellulitis with mild leukocytosis, Possible due to his febrile illness vs generalized deconditioning, Febrile illness/probable mild sepsis upon admission. Given his white count of 13.1 and fever of 103 at home, he probably has a mild degree of sepsis from left lower extremity cellulitis. Has been on rocephin. Leukocytosis resolved. Blood culture negative, last mild fever 37.6 was 2 days ago Was switch Rocephin to oral Keflex for total 10 days from 10/21/2016 minimal activity at home, cellulitis and mild sepsis may be contributory. PT/OT consulted. Encourage increase activity, has talked to RN to make sure PT OT to see patient Urinary incontinence, check PSA, and bladder scanning post voiding residual, Coronary artery disease, stable. Continue his home meds. Hypertension. cont metoprolol Deep venous thrombosis prophylaxis with Lovenox. Possible discharge day 1 or 2, discharge plan will be per PT OT recommendation Continued [facility] stay due to: home environment unsafe for pt Discharge planning: home
[2016-10-24 15:44] VITALS: BP 120/72; PULSE 46; TEMP 36.4; O2SAT 95
[2016-10-24] MEDS: CEFTRIAXONE SOD INJ 1,000 MG in DEXTROSE 5% 50ML 50 ML IV SCH (20:12)
[2016-10-25 00:22] VITALS: BP 152/74; PULSE 58; TEMP 36.4; O2SAT 95
[2016-10-25 07:40] LABS: BASO % 0.2 %; BASO ABS # 0.01 K/uL (0-0.2); COMPLETE YES; EOS % 2.5 %; HEMATOCRIT 38.6 % (42-52); IG% 0.2 %; LYMPH % 19.6 %; LYMPH ABS # 0.85 K/uL (1.2-3.4); MEAN CELL VOLUME 88.9 fL (80-100); MEAN CORPUSCULAR HEMOGLOBIN 29.5 pg (25-34); MEAN CORPUSCULAR HGB CONC 33.2 g/dl (32-36); MEAN PLATELET VOLUME 9.6 fL (7.4-10.4); MONO % 15.2 %; NEUT % 62.3 %; PLATELET COUNT 156 K/uL (130-400); RED BLOOD COUNT 4.34 M/uL (4.7-6.1); WHITE BLOOD COUNT 4.33 K/uL (4.8-10.8)
[2016-10-25 07:50] VITALS: BP 147/75; PULSE 52; TEMP 37; O2SAT 94
[2016-10-25 08:01] LABS: CREATININE 0.67 mg/dl (0.60-1.40); MAGNESIUM 2.2 mg/dl (1.8-2.4)
[2016-10-25] MEDS: METOPROLOL TARTRATE 25 MG TAB PO SCH (09:05)
[2016-10-25 09:06] VITALS: PULSE 85
[2016-10-25] MEDS: ASPIRIN 81 MG ECTAB PO SCH (09:06)
[2016-10-25] MEDS: PRAVASTATIN SOD 20 MG TAB PO SCH (09:06)
[2016-10-25] MEDS: SENNA 8.6 MG TAB PO SCH (09:06)
[2016-10-25] MEDS: CLOPIDOGREL BISULFATE 75 MG TAB PO SCH (09:06)
[2016-10-25] MEDS: ENOXAPARIN 40 MG/0.4 ML SYR SQ SCH (09:07)
[2016-10-25] MEDS ORDERED: CEPH500C2 PO (09:18)
--- NOTE | 2016-10-25 09:23 | Discharge Instructions ---
Discharge Instructions Date of Service Oct 25, 2016. Admission Reason for Admission: Left Leg Cellulitis Discharge Discharge Diagnosis / Problem: cellulitis Weakness Discharge Goals Goal(s): Decrease discomfort, Improve function, Increase independence, Improve disease control, Improve nutritional status, Learn about illness, Diagnostic testing, Therapeutic intervention, Prevent Disease Progression, Specific goals Activity Recommendations Activity Limitations: resume your previous activity . Instructions / Follow-Up Instructions / Follow-Up you have Cellulitis with mild leukocytosis, you need to continue oral Keflex 6 days more for total 10 days from 10/21/2016 fall precaution Urinary incontinence, checked PSA was 5.7 ,, you need to follow up with pcp and urologist about this you need home health care for continue PT/OT you need to elevated legs while in bed or in chair you can use Lasix as instructed as prior your admission - you need to follow up with your primary care physician in 1 week, - take medication as instructed, never overdose or any misuse, or take with alcohol, because misuse of medicine may cause organ damage or , call your primary care physician if have questions of medicaitons. - call your primary care physician OR go to local emergency room if has any fever/chill, chest pain, shortness of breathing, nausea/vomiting/abdominal pain , facial droop/slurry speech/local weakness, or if has any questions. - fall precaution - diet as instructed - you need to follow up with your subspecialist - you should understand that it is important to follow up the above instruction , and "not following the above instruction" may cause delayed or missed care of your medical conditions which may cause permanent organ damage and even . Current Hospital Diet Patient's current hospital diet: AHA Diet (Heart Healthy) Discharge Diet Recommended Diet: AHA Diet (Heart Healthy) Pending Studies Studies pending at discharge: no Medical Emergencies . Who to Call and When: Medical Emergencies: If at any time you feel your situation is an emergency, please call 911 immediately. . Non-Emergent Contact Non-Emergency issues call your: Primary Care Provider Call Non-Emergent contact if: you have a fever . . "Provider Documentation" section prepared by Ken Moore. . VTE Core Measure Inpt VTE Proph given/why not?: Enoxaparin (Lovenox)SQ
[2016-10-25] MEDS ORDERED: CEPHALEXIN MONOHYDRATE 250 MG CAP PO STA (09:33)
[2016-10-25 10:16] VITALS: BP 147/75; PULSE 85; TEMP 37; O2SAT 94
--- NOTE | 2016-10-25 18:43 | Discharge Summary ---
Discharge Summary Date of Service Oct 25, 2016. Discharge Summary Admission Date: Oct 24, 2016 at 10:47 Discharge Date: Oct 25, 2016 Principal Diagnosis: Cellulitis with mild leukocytosis, Problems/Secondary Diagnoses: Urinary incontinence, checked PSA was 5.7 Procedures: No Consultations: No Medication Reconciliation New Medications: Cephalexin Monohydrate (Keflex) 500 Mg Cap 500 MG PO QID for 6 Days, CAP Continued Medications: Aspirin (Aspirin) 325 Mg Tab 162.5 MG PO DAILY, TAB Clopidogrel (Plavix) 75 Mg Tab 75 MG PO QAM, TAB Furosemide (Lasix) 20 Mg Tab 20 MG PO DAILY PRN for EDEMA, TAB Metoprolol Tartrate (Lopressor) 25 Mg Tab 25 MG PO DAILY, #60 Nitroglycerin (Nitrostat) 0.4 Mg Tab 0.4 MG UT PRN, BTL Pravastatin (Pravachol ) 20 Mg Tab 40 MG PO QAM, TAB Senna (Senokot) 8.6 Mg Tab 8.6 MG PO DAILY, TAB Discharge Exam Sitting up in a chair, conversational, left know her extremity edema and swelling is a little better, however not as hot as yesterday, only minimal warmer than then right lower extremity, no open wound in skin Review of Systems: Constitutional: No fever, No chills, No sweats, No weight loss, No weakness , No fatigue, No problem reported Eyes: No worsening of vision, No eye pain, No redness, No discharge, No diplopia, No problem reported ENT: No hearing loss, No unusual epistaxis, No nasal symptoms, No sore throat, No tinnitus, No dental problems, No trouble swallowing, No problem reported Respiratory: No cough, No sputum, No wheezing, No dyspnea at rest, No hemoptysis, No problem reported Abdomen: No pain, No nausea, No vomiting, No diarrhea, No constipation, No GI bleeding, No problem reported Genitourinary - Male: + urinary incontinence Neurologic: No memory loss, No paralysis, No weakness, No numbness/tingling , No vertigo, No balance problems, No problem reported Psychiatric: No depression symptoms, No anhedonism, No anxiety, No insomnia , No substance abuse, No problem reported Endocrine: No fatigue, No excessive thirst, No excessive urination, No problem reported Integumentary: + problem reported (left lower extremity chronic pigmentation and matos red, which is slowly better) Physical Exam: General Appearance: WD/WN, no apparent distress Eyes: normal inspection, PERRL ENT: normal ENT inspection, hearing grossly normal Neck: supple, no adenopathy Respiratory/Chest: chest non-tender, normal breath sounds, no respiratory distress, no accessory muscle use, + decreased breath sounds Cardiovascular: regular rate, rhythm, no gallop, no JVD, + pertinent finding (left lower extremity swelling) Abdomen / GI: normal bowel sounds, non tender, soft, no organomegaly, no pulsatile mass Extremities: normal inspection, no calf tenderness, normal capillary refill , + swelling 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 Possible from cellulitis Cellulitis with mild leukocytosis, Possible due to his febrile illness vs generalized deconditioning, Febrile illness/probable mild sepsis upon admission. Given his white count of 13.1 and fever of 103 at home, he probably has a mild degree of sepsis from left lower extremity cellulitis. Has been on rocephin. Leukocytosis resolved. Blood culture negative, last mild fever 37.6 was 3 days ago Was switch Rocephin to oral Keflex for total 10 days from 10/21/2016 minimal activity at home, cellulitis and mild sepsis may be contributory. PT/OT consulted. Encourage increase activity, PT OT okay to go home with home healthcare Urinary incontinence, check PSA, and bladder scanning post voiding residual, PSA was around 5.7, PCP please follow-up Coronary artery disease, stable. Continue his home meds. Hypertension. cont metoprolol Deep venous thrombosis prophylaxis with Lovenox. Instructions / Follow-Up you have Cellulitis with mild leukocytosis, you need to continue oral Keflex 6 days more for total 10 days from 10/21/2016 fall precaution Urinary incontinence, checked PSA was 5.7 ,, you need to follow up with pcp and urologist about this you need home health care for continue PT/OT you need to elevated legs while in bed or in chair you can use Lasix as instructed as prior your admission - you need to follow up with your primary care physician in 1 week, - take medication as instructed, never overdose or any misuse, or take with alcohol, because misuse of medicine may cause organ damage or , call your primary care physician if have questions of medicaitons. - call your primary care physician OR go to local emergency room if has any fever/chill, chest pain, shortness of breathing, nausea/vomiting/abdominal pain , facial droop/slurry speech/local weakness, or if has any questions. - fall precaution - diet as instructed - you need to follow up with your subspecialist - you should understand that it is important to follow up the above instruction , and "not following the above instruction" may cause delayed or missed care of your medical conditions which may cause permanent organ damage and even . Total Time Spent: Greater than 30 minutes This includes examination of the patient, discharge planning, medication reconciliation, and communication with other providers. Discharge Instructions Please refer to the electronic Patient Visit Report (Discharge Instructions) for additional information. Additional Copies To Drew Aldrich M.D.
== END 2016-10-25 11:00 | disposition home or self-care (01) | DRG 872 ==
LOC: C.EDB 17:54 → C.4E 22:25 → ENRESERV 23:01 → OBSVTOIN 10-24 10:47
PROVIDERS: ADMIT Family Medicine; ATTEND Hospitalist
DX: A41.9 Sepsis, unspecified organism (principal); L03.116 Cellulitis of left lower limb; E86.0 Dehydration; R32 Unspecified urinary incontinence; I25.10 Atherosclerotic heart disease of native coronary artery without angina pectoris; I11.9 Hypertensive heart disease without heart failure; E78.5 Hyperlipidemia, unspecified; Z51.81 Encounter for therapeutic drug level monitoring; Z79.899 Other long term (current) drug therapy; Z79.82 Long term (current) use of aspirin; Z79.02 Long term (current) use of antithrombotics/antiplatelets; Z91.81 History of falling; Z95.1 Presence of aortocoronary bypass graft; Z86.73 Personal history of transient ischemic attack (TIA), and cerebral infarction without residual deficits

== ENCOUNTER 2016-12-27 17:18 | Emergency (ER) | payer OTHER, BC ==
[~2016-12-27] VITALS: Ht 180.3 cm; Wt 91.2 kg
[~2016-12-27 17:18] MED LIST changes: -B-COTAB18 PO; -CHOL1CAP27 PO; +LPR25 PO; -METO25TA56 PO; -TMF75 PO
[2016-12-27 17:28] VITALS: TEMP 36.6; Ht 180.3 cm; Wt 91.2 kg
[2016-12-27] MEDS ORDERED: CHOL1000 PO (17:36)
[2016-12-27] MEDS ORDERED: VITBC PO (17:36)
--- NOTE | 2016-12-27 17:54 | EMERGENCY ROOM VISIT NOTE ---
ED Visit Note First contact with patient: 17:51 Staff note: I have reviewed the Patients chart and have discussed this case with my PA. I generally agree with the ED note and findings.
--- NOTE | 2016-12-27 18:02 | EMERGENCY ROOM VISIT NOTE ---
History First contact with patient: 17:20 Chief Complaint: OTHER COMPLAINT Stated Complaint: FALL. LOW SPO2 PER STAFF History of Present Illness The patient is a 86 year old male who presents to the Emergency Room via EMS from the [facility] due to a fall. The patient reports that he falls very frequently, usually daily. He has had weakness in his legs for the past 10 years. He has seen his primary care provider, Dr. Aldrich as well as multiple neurologists for this and has not been given a diagnosis. He states that he is typically more weak in the evening hours. He states that his legs gave out on him and he slid down, which is what he is trained to do when he feels like he is going to fall. He states he feels that his weakness was better when he was doing physical therapy daily, but he does not do this frequently because it is boring. The patient denies any injuries associated with the fall. He denies any chest pain, shortness of breath, headache or neck pain. He denies any recent illness or fevers. Per EMS, the patient had a routine vital check and his O2 saturation was 63%. EMS reports that when they arrived, they checked the saturation and it was greater than 95% on room air. Review of Systems A complete 10 point review of systems was reviewed with the patient with pertinent positives and negatives as per history of present illness. All else were negative. Past Medical/Surgical History Medical Problems: (1) Ambulatory dysfunction (2) CAD (coronary artery disease) (3) Cellulitis of right leg (4) Generalized weakness (5) History of triple bypass (6) Hypertension (7) Influenza A (8) Left lower lobe pneumonia (9) TIA (transient ischemic attack) Surgical Problems: (1) History of cholecystectomy (2) History of knee surgery (3) S/P triple vessel bypass (4) Status post skin graft Family History Patient reports no known family medical history. Social History Smoking Status: Former Smoker Alcohol Use: occasionally Drug Use: none Marital Status: Housing Status: assisted living Occupation Status: retired Current/Historical Medications Scheduled Aspirin (Aspirin), 162.5 MG PO Q2D Cholecalciferol (Vitamin D3), 1,000 INTER.UNIT PO DAILY Clopidogrel (Plavix), 75 MG PO QAM Furosemide (Lasix), 20 MG PO DAILY Metoprolol Tartrate (Lopressor), 12.5 MG PO BID Nitroglycerin (Nitrostat), 0.4 MG UT PRN Pravastatin (Pravachol ), 40 MG PO QAM Senna (Senokot), 8.6 MG PO DAILY Vitamin B Complex (Vitamin B Complex), 1 TAB PO DAILY Physical Exam Vital Signs Date Time Temp Pulse Resp B/P (MAP) Pulse Ox O2 Delivery O2 Flow Rate FiO2 12/27/16 19:59 53 20 145/70 97 12/27/16 19:00 58 18 157/67 96 Room Air 12/27/16 17:43 55 12/27/16 17:28 36.6 55 16 168/69 96 Room Air Physical Exam VITALS: Vitals are noted on the nurse's note and reviewed by myself. Vital signs stable. GENERAL: This is an 86-year-old male, in no acute distress, nondiaphoretic, well -developed well-nourished. SKIN: The skin was without erythema, edema, or bruising. HEAD: Normocephalic atraumatic. EARS: External auditory canals clear, tympanic membranes pearly matos without erythema or effusion bilaterally. EYES: Pupils equal round and reactive to light and accommodation. Conjunctivae without injection, sclerae without icterus. Extraocular movements intact. MOUTH: Mucous membranes moist. NECK: Supple without nuchal rigidity. Cervical spine is nontender. HEART: Regular rate and rhythm without murmurs gallops or rubs. LUNGS: Clear to auscultation bilaterally without wheezes, rales or rhonchi. MUSCULOSKELETAL: Full range of motion of all extremities.. Strength 5/5 throughout. NEURO: Patient was alert and oriented to person place and time. Normal sensation to light and sharp touch. No focal neurological deficits. Medical Decision & Procedures Medical Decision The patient was evaluated as above. He is extremely well-appearing and has no complaints at this time. The patient reportedly had an oxygen saturation of 63 % at his routine vital check. The patient denies having any shortness of breath or respiratory symptoms. I suspect this is likely because this was checked after he was outside in the cold. Since he was picked up by EMS, his O2 saturations have not dropped below 95% on room air. Throughout his stay in the emergency department, his O2 saturations were near 100% the entire time. The patient has falls almost daily and has not experienced anything out of the ordinary for him. I do not feel that any further workup is necessary at this time and the patient is requesting to go home. He contacted his , who came to the emergency department to pick him up. I did speak with the personally and she is comfortable taking him home. They will follow-up with his primary care provider as needed. The patient was independently evaluated by Dr. Randall, ED attending physician, who agreed with my assessment and treatment plan. Medication Reconcilliation Current Medication List: was personally reviewed by me Blood Pressure Screening Patient's blood pressure: Elevated blood pressure Blood pressure disposition: Elevated BP felt to be situational Impression Primary Impression: Fall Departure Information Dispostion Home / Self-Care Condition GOOD Referrals Drew Aldrich M.D. (PCP) Patient Instructions My [facility] Additional Instructions Follow-up with your primary care provider as needed.
[2016-12-27 19:59] VITALS: BP 145/70; PULSE 53; O2SAT 97
== END 2016-12-27 20:02 | disposition home or self-care (01) ==
LOC: EDBD 17:18 → C.EDC 17:19
DX: R53.1 Weakness (principal); W19.XXXA Unspecified fall, initial encounter; Z91.81 History of falling; I25.10 Atherosclerotic heart disease of native coronary artery without angina pectoris; I10 Essential (primary) hypertension; Z86.73 Personal history of transient ischemic attack (TIA), and cerebral infarction without residual deficits; Z86.19 Personal history of other infectious and parasitic diseases; Z90.49 Acquired absence of other specified parts of digestive tract; Z95.1 Presence of aortocoronary bypass graft; Z98.890 Other specified postprocedural states; Z87.891 Personal history of nicotine dependence; Z79.82 Long term (current) use of aspirin; Z79.899 Other long term (current) drug therapy

== ENCOUNTER 2017-03-16 12:32 | Emergency (ER) | payer OTHER, BC ==
[~2017-03-16] VITALS: Ht 177.8 cm; Wt 91.8 kg
[~2017-03-16 12:32] MED LIST changes: +CHOL1000 PO; +VITBC PO
[2017-03-16 12:41] VITALS: TEMP 36.8
[2017-03-16 13:26] VITALS: O2SAT 94
[2017-03-16 13:27] VITALS: Ht 177.8 cm; Wt 91.8 kg
--- NOTE | 2017-03-16 13:44 | DIAGNOSTIC IMAGING REPORT ---
HEAD WITHOUT CONTRAST (CT) CT DOSE: 823.94 mGycm HISTORY: Mental status change EVALUATE WEAKNESS TECHNIQUE: Multiaxial CT images of the head were performed without the use of intravenous contrast. A dose lowering technique was utilized adhering to the principles of ALARA. Comparison: 10/21/2016 Findings: The paranasal sinuses and mastoid air cells are clear. The calvarium and skull base are intact. The ventricles and sulci are within normal limits. There is no mass, hematoma, midline shift, or acute infarct. Mild age-related atrophy and chronic small vessel change Impression: No acute intracranial abnormality. Age-related atrophy and chronic small vessel change The above report was generated using voice recognition software. It may contain grammatical, syntax or spelling errors. Electronically signed by: Magnus Reid M.D. 03/16/2017 1:43 PM Dictated Date/Time: 03/16/2017 1:40 PM
[2017-03-16 13:49] LABS: BASO % 0.5 %; BASO ABS # 0.03 K/uL (0-0.2); EOS % 1.4 %; EOS ABS # 0.09 K/uL (0-0.5); HEMATOCRIT 44.6 % (42-52); HEMOGLOBIN 14.4 g/dL (14.0-18.0); IG# 0.01 K/uL (0.00-0.02); LYMPH % 16.2 %; LYMPH ABS # 1.01 K/uL (1.2-3.4); MEAN CELL VOLUME 90.7 fL (80-100); MEAN CORPUSCULAR HEMOGLOBIN 29.3 pg (25-34); MEAN CORPUSCULAR HGB CONC 32.3 g/dl (32-36); MEAN PLATELET VOLUME 9.4 fL (7.4-10.4); MONO % 11.9 %; MONO ABS # 0.74 K/uL (0.11-0.59); NEUT % 69.8 %; NEUT ABS # 4.34 K/uL (1.4-6.5); PLATELET COUNT 185 K/uL (130-400); RED CELL DISTRIBUTION WIDTH CV 15.6 % (11.5-14.5); RED CELL DISTRIBUTION WIDTH SD 51.4 fL (36.4-46.3); WHITE BLOOD COUNT 6.22 K/uL (4.8-10.8)
[2017-03-16 13:58] LABS: PTT PATIENT 27.4 SECONDS (21.0-31.0)
[2017-03-16 14:13] LABS: ALBUMIN 3.6 gm/dl (3.4-5.0); ALT/SGPT 21 U/L (12-78); AST/SGOT 17 U/L (15-37); BLOOD UREA NITROGEN 18 mg/dl (7-18); CALCIUM 9.4 mg/dl (8.5-10.1); CARBON DIOXIDE 29 mmol/L (21-32); CREATININE 0.78 mg/dl (0.60-1.40); GLUCOSE 90 mg/dl (70-99); LIPASE 121 U/L (73-393); POTASSIUM 4.7 mmol/L (3.5-5.1); SODIUM 140 mmol/L (136-145)
--- NOTE | 2017-03-16 14:17 | DIAGNOSTIC IMAGING REPORT ---
CHEST ONE VIEW PORTABLE CLINICAL HISTORY: Weakness COMPARISON STUDY: October 21, 2016 FINDINGS: The heart is the upper limits of normal in size. There are postsurgical changes of a midline sternotomy. There is persistent aortic tortuosity/ectasia. There is no lobar consolidation. Underlying emphysema is suspected. There is basilar interstitial scarring/atelectasis similar to the preceding study. Advanced arthritic changes are present within the shoulders[ . There is scattered calcified granulomatous calcifications. IMPRESSION: No active disease in the chest. Electronically signed by: Will Trinidad M.D. 03/16/2017 2:16 PM Dictated Date/Time: 03/16/2017 2:14 PM
[2017-03-16 14:23] LABS: ALKALINE PHOSPHATASE 58 U/L (45-117); TOTAL PROTEIN 6.9 gm/dl (6.4-8.2)
[2017-03-16] MEDS ORDERED: ASPIRIN 81 MG CHEW PO STA (16:21)
[2017-03-16] MEDS ORDERED: BISA-71 (16:28)
[2017-03-16] MEDS ORDERED: CLOPIDOGREL BISULFATE 75 MG TAB PO ONE (16:30)
[2017-03-16] MEDS ORDERED: CEPHALEXIN MONOHYDRATE 250 MG CAP PO ONE (16:30)
[2017-03-16 16:40] VITALS: O2SAT 93
[2017-03-16] MEDS ORDERED: CEPH500C PO (17:17)
[2017-03-16 17:20] VITALS: BP 140/71; PULSE 63
--- NOTE | 2017-03-16 22:15 | EMERGENCY ROOM VISIT NOTE ---
History Report prepared by Devon: Guy Villalpando Under the Supervision of: Dr. Richard Bhatia M.D. First contact with patient: 13:20 Chief Complaint: TIA Nursing Triage Summary: pt from the [facility], staff reported he was at therapy and had a 30 min period of time where he was aphagic. no other sx. pt currently awake oriented able to speak. pt states this has happened to him at least 4 times, it is always his speech, and he has been to several hospitals for it. deneis pain or blurred vision. History of Present Illness The patient is an 86 year old male who presents to the Emergency Room following an now resolved Aphasic episode that occurred shortly prior to arrival. The patient stays at "[facility] and was at physical therapy, secondary to lower extremity weakness. He experienced an aphasic episode that lasted 30 minutes per witnesses. The patient has a history of TIAs and aphasic episodes. This episode was similar to the aphasic episodes he has had in the past. He "was not able to formulate sentences." He states that the redness and edema in his lower extremities is slightly worse than usual. The patient denies any LOC, headache, fevers, chills, diaphoresis, visual changes, neck pain, chest pain, breathing difficulties, nausea, vomiting, abdominal pain , back pain, melena, hematochezia, urinary symptoms, numbness, weakness, lymphadenopathy, rash, or other complaints. Source of History: patient, nursing staff Onset: shortly [employer]TE[employer] Position: other (Neuro (speech)) Quality: other (Aphasic episode) Timing: resolved Associated Symptoms: No LOC Review of Systems See HPI for pertinent positives and negatives. A total of ten systems were reviewed and were otherwise negative. Past Medical & Surgical Medical Problems: (1) Ambulatory dysfunction (2) CAD (coronary artery disease) (3) Cellulitis of right leg (4) Generalized weakness (5) History of triple bypass (6) Hypertension (7) Influenza A (8) Left lower lobe pneumonia (9) TIA (transient ischemic attack) Surgical Problems: (1) History of cholecystectomy (2) History of knee surgery (3) S/P triple vessel bypass (4) Status post skin graft Family History Patient reports no known family medical history. Social History Smoking Status: Former Smoker Alcohol Use: occasionally Drug Use: none Marital Status: Housing Status: assisted living Occupation Status: retired Current/Historical Medications Scheduled Aspirin (Aspirin), 162.5 MG PO Q2D Cephalexin Monohydrate (Keflex), 500 MG PO QID Cholecalciferol (Vitamin D3), 1,000 INTER.UNIT PO DAILY Clopidogrel (Plavix), 75 MG PO QAM Furosemide (Lasix), 20 MG PO DAILY Metoprolol Tartrate (Lopressor), 12.5 MG PO BID Nitroglycerin (Nitrostat), 0.4 MG UT PRN Pravastatin (Pravachol ), 40 MG PO QAM Senna (Senokot), 8.6 MG PO DAILY Vitamin B Complex (Vitamin B Complex), 1 TAB PO DAILY Miscellaneous Medications Bisacodyl (Laxative) Allergies Coded Allergies: No Known Allergies (Unverified , 03/16/17) Physical Exam Vital Signs Date Time Temp Pulse Resp B/P (MAP) Pulse Ox O2 Delivery O2 Flow Rate FiO2 03/16/17 17:20 63 140/71 03/16/17 16:40 61 21 161/104 93 Room Air 03/16/17 15:34 61 22 161/89 96 Room Air 03/16/17 13:56 70 16 161/89 94 Room Air 03/16/17 13:26 94 Room Air 03/16/17 12:53 57 03/16/17 12:41 36.8 56 19 166/85 94 Room Air Physical Exam GENERAL: Awake, alert, well-appearing, in no distress HENT: Normocephalic, atraumatic. Oropharynx unremarkable. EYES: Normal conjunctiva. Sclera non-icteric. NECK: Supple. No nuchal rigidity. FROM. No JVD. RESPIRATORY: Clear to auscultation. CARDIAC: Regular rate, normal rhythm. Extremities warm and well perfused. Pulses equal. ABDOMEN: Soft, non-distended. No tenderness to palpation. No rebound or guarding. No masses. RECTAL: Deferred. MUSCULOSKELETAL: Chest examination reveals no tenderness. The back is symmetrical on inspection without obvious abnormality. There is no CVA tenderness to palpation. No joint edema. LOWER EXTREMITIES: There is redness coloration to the bilateral lower extremities, right worse than the left. There is 1+ edema bilaterally. NEURO: Normal sensorium. No sensory or motor deficits noted. SKIN: No rash or jaundice noted. There is redness coloration to the bilateral lower extremities, right worse than the left. There is 1+ edema bilaterally. Medical Decision & Procedures ER Provider Diagnostic Interpretation: Radiology results as stated below per my review and radiologist interpretation: CHEST ONE VIEW PORTABLE CLINICAL HISTORY: Weakness COMPARISON STUDY: October 21, 2016 FINDINGS: The heart is the upper limits of normal in size. There are postsurgical changes of a midline sternotomy. There is persistent aortic tortuosity/ectasia. There is no lobar consolidation. Underlying emphysema is suspected. There is basilar interstitial scarring/atelectasis similar to the preceding study. Advanced arthritic changes are present within the shoulders[ . There is scattered calcified granulomatous calcifications. IMPRESSION: No active disease in the chest. Electronically signed by: Will Trinidad M.D. 03/16/2017 2:16 PM Dictated Date/Time: 03/16/2017 2:14 PM HEAD WITHOUT CONTRAST (CT) CT DOSE: 823.94 mGycm HISTORY: Mental status change EVALUATE WEAKNESS TECHNIQUE: Multiaxial CT images of the head were performed without the use of intravenous contrast. A dose lowering technique was utilized adhering to the principles of ALARA. Comparison: 10/21/2016 Findings: The paranasal sinuses and mastoid air cells are clear. The calvarium and skull base are intact. The ventricles and sulci are within normal limits. There is no mass, hematoma, midline shift, or acute infarct. Mild age-related atrophy and chronic small vessel change Impression: No acute intracranial abnormality. Age-related atrophy and chronic small vessel change The above report was generated using voice recognition software. It may contain grammatical, syntax or spelling errors. Electronically signed by: Magnus Reid M.D. 03/16/2017 1:43 PM Dictated Date/Time: 03/16/2017 1:40 P Laboratory Results 03/16/17 13:24 Red Blood Count 4.92, Mean Corpuscular Volume 90.7, Mean Corpuscular Hemoglobin 29.3, Mean Corpuscular Hemoglobin Concent 32.3, Mean Platelet Volume 9.4, Neutrophils (%) (Auto) 69.8, Lymphocytes (%) (Auto) 16.2, Monocytes (%) (Auto) 11.9, Eosinophils (%) (Auto) 1.4, Basophils (%) (Auto) 0.5, Neutrophils # (Auto ) 4.34, Lymphocytes # (Auto) 1.01, Monocytes # (Auto) 0.74, Eosinophils # (Auto ) 0.09, Basophils # (Auto) 0.03 03/16/17 13:24 Test 03/16/17 13:24 03/16/17 15:30 White Blood Count 6.22 K/uL (4.8-10.8) Red Blood Count 4.92 M/uL (4.7-6.1) Hemoglobin 14.4 g/dL (14.0-18.0) Hematocrit 44.6 % (42-52) Mean Corpuscular Volume 90.7 fL (80-100) Mean Corpuscular Hemoglobin 29.3 pg (25-34) Mean Corpuscular Hemoglobin Concent 32.3 g/dl (32-36) Platelet Count 185 K/uL (130-400) Mean Platelet Volume 9.4 fL (7.4-10.4) Neutrophils (%) (Auto) 69.8 % Lymphocytes (%) (Auto) 16.2 % Monocytes (%) (Auto) 11.9 % Eosinophils (%) (Auto) 1.4 % Basophils (%) (Auto) 0.5 % Neutrophils # (Auto) 4.34 K/uL (1.4-6.5) Lymphocytes # (Auto) 1.01 K/uL (1.2-3.4) Monocytes # (Auto) 0.74 K/uL (0.11-0.59) Eosinophils # (Auto) 0.09 K/uL (0-0.5) Basophils # (Auto) 0.03 K/uL (0-0.2) RDW Standard Deviation 51.4 fL (36.4-46.3) RDW Coefficient of Variation 15.6 % (11.5-14.5) Immature Granulocyte % (Auto) 0.2 % Immature Granulocyte # (Auto) 0.01 K/uL (0.00-0.02) Prothrombin Time 10.7 SECONDS (9.0-12.0) Prothromb Time International Ratio 1.0 (0.9-1.1) Activated Partial Thromboplast Time 27.4 SECONDS (21.0-31.0) Partial Thromboplastin Ratio 1.1 Anion Gap 5.0 mmol/L (3-11) Est Creatinine Clear Calc Drug Dose 74.6 ml/min Estimated GFR () 93.4 Estimated GFR (Non- 80.6 BUN/Creatinine Ratio 23.2 (10-20) Calcium Level 9.4 mg/dl (8.5-10.1) Magnesium Level 2.4 mg/dl (1.8-2.4) Total Bilirubin 1.2 mg/dl (0.2-1) Direct Bilirubin 0.2 mg/dl (0-0.2) Aspartate Amino Transf (AST/SGOT) 17 U/L (15-37) Alanine Aminotransferase (ALT/SGPT) 21 U/L (12-78) Alkaline Phosphatase 58 U/L (45-117) Troponin I < 0.015 ng/ml (0-0.045) Total Protein 6.9 gm/dl (6.4-8.2) Albumin 3.6 gm/dl (3.4-5.0) Lipase 121 U/L (73-393) Thyroid Stimulating Hormone (TSH) 0.823 uIu/ml (0.300-4.500) Urine Color YELLOW Urine Appearance CLEAR (CLEAR) Urine pH 7.5 (4.5-7.5) Urine Specific [place] 1.020 (1.000-1.030) Urine Protein NEG (NEG) Urine Glucose (UA) NEG (NEG) Urine Ketones 1+ (NEG) Urine Occult Blood NEG (NEG) Urine Nitrite NEG (NEG) Urine Bilirubin NEG (NEG) Urine Urobilinogen NEG (NEG) Urine Leukocyte Esterase NEG (NEG) Laboratory results reviewed by me Medications Administered Medications (Trade) Dose Ordered Sig/Agnes Route Start Time Stop Time Status Last Admin Dose Admin Cephalexin Monohydrate (Keflex Cap) 500 mg NOW ONCE PO 03/16/17 16:30 03/16/17 16:31 DC 03/16/17 16:43 500 MG Clopidogrel Bisulfate (plAVix TAB) 75 mg NOW ONCE PO 03/16/17 16:30 03/16/17 16:31 DC 03/16/17 16:43 75 MG Aspirin (Aspirin Chew) 162 mg NOW STAT PO 03/16/17 16:21 03/16/17 16:22 DC 03/16/17 16:43 162 MG ECG Indication: other (Aphasia/TIA) Rate (beats per minute): 56 Rhythm: sinus bradycardia Findings: RBBB, no acute ischemic change Change: Patient's electrocardiogram reading per my interpretation. ED Course 1358: The patient was evaluated in room A11. A complete history and physical exam was performed. 1621: Ordered Aspirin Chew 162 mg PO. 1606: I discussed the case with Dr. Aldrich at this time. He notes the patient is very difficult and non-compliant. 1613: I updated the patient on his case so far. 1630: Ordered plAVix TAB 75 mg PO, Keflex 500 mg PO. 1627: I discussed the option of a hospital admission with the patient at this time. He does not want to stay in the hospital. The patient will be discharged home. Medical Decision Prior records/ancillary studies reviewed and summarized above. Nursing notes reviewed and agree them. Additional history obtained from his primary physician Dr. Drew Aldrich The patient's history was concerning for weakness. Differential diagnosis: Etiologies such as TIA, CVA, metabolic, infection, hypo/hyperglycemia, electrolyte abnormalities, cardiac sources, intracerebral event, toxicologic, neurologic, as well as others were entertained. Physical examination: As above. Minimal cellulitis present on the lower leg. This is a recurrent problem for the patient. No focal neurologic findings persisting. ER treatment provided: IV Lock Oral Keflex Oral aspirin Oral Plavix On reassessment the patient felt better. Diagnostics interpretation by me: ECG: Normal as above The labs revealed an unremarkable CBC and chemistry panel Imaging studies: Chest x-ray and CT scan as above Consultation: A consultation was placed with his primary physician. We discussed the case. The patient is somewhat difficult by his report and occasionally is noncompliant with medications. I discussed further treatment in the hospital and he felt that was not unreasonable. I discussed the case issues with the patient and recommended him staying in the hospital. He notes having several other similar episodes of transient aphasia that resulted in hospitalization and a workup that was unremarkable. The patient is aware that he is at risk for stroke. He is are taking aspirin and Plavix. He does not want to stay in the hospital despite reviewing the risks and benefits. I did discuss treatment of his cellulitis as he has had this problem before. He feels that this is reasonable. I encouraged the patient follow-up promptly with his primary physician and he agrees. If he worsens in any way or changes his mind he will be back.I gave my usual and customary discussion regarding this issue. By the evaluation outlined above emergent etiologies such as bacteremia, Dr. light abnormalities, cardiac sources, intracerebral event, toxicologic, neurologic, abnormalities blood glucose, metabolic, as well as others were deemed relatively unlikely. The patient was informed about the findings as listed above. All questions were answered and he was pleased with the treatment. Return instructions were outlined and the patient was discharged in stable condition. Outpatient prescription management: Keflex Referral: The patient was referred back to his primary care physician for follow-up in for a recheck of the current condition. Blood Pressure Screening Patient's blood pressure: Elevated blood pressure Blood pressure disposition: Referred to PCP Consults Time Called: 1600 Consulting Physician: Dr. Elinor Gibson Returned Call: 1606 I discussed the case with Dr. Elinor Gibson at this time. He notes the patient is very difficult and non-compliant. Impression Primary Impression: Cellulitis Additional Impression: TIA (transient ischemic attack) Scribe Attestation The scribe's documentation has been prepared under my direction and personally reviewed by me in its entirety. I confirm that the note above accurately reflects all work, treatment, procedures, and medical decision making performed by me. Departure Information Dispostion Home / Self-Care Prescriptions Cephalexin Monohydrate (Keflex) 500 Mg Cap 500 MG PO QID, #28 CAP Prov: Richard Bhatia MD 03/16/17 Referrals Drew Aldrich M.D. (PCP) Forms HOME CARE DOCUMENTATION FORM, IMPORTANT VISIT INFORMATION, WORK / SCHOOL INSTRUCTIONS Patient Instructions My [facility] Additional Instructions Make sure that you take your Plavix and aspirin as prescribed as these are the best treatments to help prevent a TIA or stroke. Cephalexin(Keflex) 500mg: Take one pill four times daily for 7 days for your skin infection. All antibiotics can cause diarrhea. If this occurs and you feel worse or it does not resolve in 1-2 days follow up with your doctor or return to the Emergency Department as this could be signs of serious underlying problems. Any medication can cause an allergic reaction, stop the pills immediately and return to the ER for rash, hives, breathing difficulties, or swelling. Acetaminophen(Tylenol) may be used for fever or pain. Use 1000mg every six hours as needed. Avoid using more than 4000mg in a 24 hour period. Warm compresses to the affected area 4 times daily for 15-20 minutes. Rest and drink plenty of fluids. Continue current medications. Return to the ER for difficulty speaking, inability to form your words, weakness , any strokelike symptoms, double vision, severe pain, persistent fevers, spreading redness, or any worsening of your condition. Follow up with your primary physician tomorrow for a recheck of the current condition. Problem Qualifiers
== END 2017-03-16 17:40 | disposition home or self-care (01) ==
LOC: EDBD 12:32 → C.EDA 12:33
DX: I69.920 Aphasia following unspecified cerebrovascular disease (principal); L03.116 Cellulitis of left lower limb; L03.115 Cellulitis of right lower limb; I25.10 Atherosclerotic heart disease of native coronary artery without angina pectoris; Z95.1 Presence of aortocoronary bypass graft; I10 Essential (primary) hypertension; Z87.01 Personal history of pneumonia (recurrent); Z90.49 Acquired absence of other specified parts of digestive tract; Z87.891 Personal history of nicotine dependence; Z79.82 Long term (current) use of aspirin; Z79.01 Long term (current) use of anticoagulants; Z79.899 Other long term (current) drug therapy; Z91.14 Patient's other noncompliance with medication regimen

== ENCOUNTER 2017-03-29 12:36 | Emergency (ER) | payer OTHER, BC ==
[~2017-03-29] VITALS: Ht 182.9 cm; Wt 87.0 kg
[~2017-03-29 12:36] MED LIST changes: +BISA-71; +CEPH500C PO
[2017-03-29 12:44] VITALS: TEMP 36.5; Ht 182.9 cm; Wt 87.0 kg
[2017-03-29] MEDS ORDERED: ACETAMINOPHEN 500 MG TAB PO STA (12:58)
[2017-03-29] MEDS ORDERED: LIDOCAINE/EPINEPHRINE 1% 20 ML VIAL INFIL ONE (13:00)
--- NOTE | 2017-03-29 13:05 | EMERGENCY ROOM VISIT NOTE ---
History Report prepared by Devon: Abisai Hernandez Under the Supervision of: Dr. Ryan Butts M.D. First contact with patient: 12:56 Chief Complaint: FALL Stated Complaint: FALL History of Present Illness The patient is a 86 year old male who presents to the Emergency Room with complaints of a fall that occurred prior to arrival. The patient states a door closed on him and knocked him to hit his head on the corner of a door frame. He complains of head pain. The patient denies loss on consciousness. He denies fevers, chills, cough, congestion, and neck pain. He states the swelling in his lower extremities is his baseline. He is currently on Plavix. Source of History: patient Onset: prior to arrival Position: head, other (global) Timing: other (singular episode) Associated Symptoms: No LOC, No fevers, No chills, No cough, No neck pain Review of Systems See HPI for pertinent positives and negatives. A total of ten systems were reviewed and were otherwise negative. Past Medical & Surgical Medical Problems: (1) Ambulatory dysfunction (2) CAD (coronary artery disease) (3) Cellulitis of right leg (4) Generalized weakness (5) History of triple bypass (6) Hypertension (7) Influenza A (8) Left lower lobe pneumonia (9) TIA (transient ischemic attack) Surgical Problems: (1) History of cholecystectomy (2) History of knee surgery (3) S/P triple vessel bypass (4) Status post skin graft Family History Patient reports no known family medical history. Social History Smoking Status: Former Smoker Alcohol Use: occasionally Drug Use: none Marital Status: Housing Status: assisted living Occupation Status: retired Current/Historical Medications Scheduled Aspirin (Aspirin), 162.5 MG PO DAILY Cholecalciferol (Vitamin D3), 1,000 INTER.UNIT PO DAILY Clopidogrel (Plavix), 75 MG PO QAM Furosemide (Lasix), 20 MG PO DAILY Metoprolol Tartrate (Lopressor), 12.5 MG PO BID Nitroglycerin (Nitrostat), 0.4 MG UT PRN Pravastatin (Pravachol ), 40 MG PO QAM Senna (Senokot), 8.6 MG PO DAILY Vitamin B Complex (Vitamin B Complex), 1 TAB PO DAILY Allergies Coded Allergies: No Known Allergies (Unverified , 03/16/17) Physical Exam Vital Signs Date Time Temp Pulse Resp B/P (MAP) Pulse Ox O2 Delivery O2 Flow Rate FiO2 03/29/17 14:46 68 18 177/89 96 Room Air 03/29/17 12:44 36.5 65 18 177/69 97 Room Air Physical Exam GENERAL: Awake, alert, in no distress HENT: Normocephalic. Oropharynx unremarkable. 2 cm contusion with underlying hematoma to the occipital scalp with question of a 3 cm linear abrasion versus laceration. EYES: Normal conjunctiva. Sclera non-icteric. NECK: Supple. No nuchal rigidity. FROM. No JVD. RESPIRATORY: Clear to auscultation. CARDIAC: Regular rate, normal rhythm. Extremities warm and well perfused. Pulses equal. ABDOMEN: Soft, non-distended. No tenderness to palpation. No rebound or guarding. No masses. RECTAL: Deferred. MUSCULOSKELETAL: Chest examination reveals no tenderness. The back is symmetrical on inspection without obvious abnormality. There is no CVA tenderness to palpation. No joint edema. LOWER EXTREMITIES: Calves are equal size bilaterally and non-tender. No edema. No discoloration. NEURO: Normal sensorium. No sensory or motor deficits noted. SKIN: No rash or jaundice noted. Medical Decision & Procedures ER Provider Diagnostic Interpretation: Radiology results as stated below per my review and radiologist interpretation: HEAD WITHOUT CONTRAST (CT) CLINICAL HISTORY: 86 years-old Male presenting with DYE fall, neck pain. TECHNIQUE: Multidetector CT imaging of the head was performed without the use of intravenous contrast. IV contrast: None. A dose lowering technique was used consistent with the principles of ALARA (as low as reasonably achievable). COMPARISON: 03/16/2017. CT DOSE (mGy.cm): The estimated cumulative dose is 638.56 mGycm. FINDINGS: Tele Grout Sewer Line Repairer topogram: Unremarkable. Proportional ventricular and sulcal prominence, likely age-related parenchymal volume loss. Periventricular and subcortical white matter hypoattenuation, nonspecific but likely indicative of chronic small vessel ischemic change. No mass effect or midline shift. No hemorrhage or acute territorial infarct. No extra-axial fluid collection. Paranasal sinuses and mastoid air cells clear. Calvarium intact. Small focal subcutaneous tissue swelling and infiltration at the right parietal vertex. IMPRESSION: 1. Chronic small vessel ischemic change. No acute intracranial abnormality. 2. Small contusion of the subcutaneous tissue at the right parietal vertex. Electronically signed by: Drew Ugalde M.D. 03/29/2017 2:07 PM Dictated Date/Time: 03/29/2017 2:[address] OF THE CERVICAL SPINE CLINICAL HISTORY: Neck pain status post trauma COMPARISON STUDY: No previous studies for comparison. CT DOSE: 459.97 mGycm TECHNIQUE: CT scan of the cervical spine was performed from the skull base to the thoracic inlet. Images are reviewed in the axial, sagittal, and coronal planes. IV contrast was not administered for this examination. A dose lowering technique was utilized adhering to the principles of ALARA. FINDINGS: The visualized portions of the lung apices reveal no evidence of pneumothorax. There is jugular bulb asymmetry with a large right jugular bulb with marked bony thinning between the jugular bulb and auditory canal. There is a calcified right lobe thyroid nodule. The prevertebral soft tissues are normal. No fractures or traumatic subluxations are visualized. There are advanced multilevel degenerative changes. There is 4 mm of retrolisthesis of C5 on C6, likely arthritic. IMPRESSION: 1. No acute fractures identified 2. Advanced multilevel spondylitic changes. 4 mm of retrolisthesis of C5 on C6 likely arthritic. Spinal stenosis at the C5-6 level. Multilevel foraminal narrowing. Electronically signed by: Will Trinidad M.D. 03/29/2017 2:19 PM Dictated Date/Time: 03/29/2017 2:15 PM Medications Administered Medications (Trade) Dose Ordered Sig/Agnes Route Start Time Stop Time Status Last Admin Dose Admin Acetaminophen (Tylenol Tab) 1,000 mg NOW STAT PO 03/29/17 12:58 03/29/17 13:05 DC 03/29/17 15:02 1,000 MG Diphtheria/ Pertussis/Tetanus Vacc (Adacel Inj) 0.5 ml ONCE ONCE IM. 03/29/17 13:30 03/29/17 13:31 DC 03/29/17 13:30 0.5 ML Procedure Location: occipital scalp Total length: 3cm Complexity: simple Verbal consent was obtained after the risks and benefits were explained, including but not limited to bleeding, scarring, infection, pain, and bone/joint /nerve damage. At this time, the risks of the procedure are less than the risks of NOT performing the procedure. A time out was taken and the correct patient and site identified. The skin was prepped with betadine. The target area was anesthetized with 1 ml of 1% lidocaine with epinephrine. Copious irrigation was performed using normal saline. The skin was re-prepped with betadine and a sterile field set. The wound was explored for foreign bodies and none found. Examination revealed no injury to deep structures. Debridement was not performed. The wound edges were approximated using 4 glenys. Hemostasis and excellent approximation was achieved. Antibacterial ointment applied. Detailed wound care instructions and signs and symptoms of infection reviewed with the patient and family. No complications and the patient tolerated the procedure well. ED Course 1256: The patient was evaluated in room B3B. A complete history and physical exam was performed. 1441: I reevaluated the patient. Discussed results and discharge instructions: He verbalized understanding and agreement. The patient is ready for discharge. Medical Decision I reviewed the patient's past medical history, medications, and the nursing notes as described above. The patient's presentation and history were concerning for etiologies such as fracture, dislocation, intra-abdominal, pneumothorax, intrathoracic , intracranial, neurologic, as well as other traumatic pathologies were entertained. The patient is an 86-year-old gentleman with a past medical history of CAD on Plavix who presents emergency department after being hit in the back of the head by a door per hpi. She denies any LOC or falling to the ground. Complains of pain in the back of his head where he has a 3 cm contusion and overlying 3 cm superficial laceration. Otherwise patient is neurologically intact at his baseline. CT head negative for ICH. CT C-spine negative for acute findings. Tetanus was updated. Lac repaired with 4 glenys per procedure note. Family at bedside endorsing the patient is at his baseline. Findings and plan for follow-up reviewed with patient. Patient agreeable and d/c'd per discharge instructions. Medication Reconcilliation Current Medication List: was personally reviewed by me Blood Pressure Screening Patient's blood pressure: Elevated blood pressure Blood pressure disposition: Elevated BP felt to be situational Impression Primary Impression: Scalp laceration Additional Impression: Head injury Scribe Attestation The scribe's documentation has been prepared under my direction and personally reviewed by me in its entirety. I confirm that the note above accurately reflects all work, treatment, procedures, and medical decision making performed by me. Departure Information Dispostion Home / Self-Care Referrals Drew Aldrich M.D. (PCP) Patient Instructions ED Head Injury Closed, ED Laceration Scalp Stitch Or Stap, [facility] [employer] Additional Instructions Please follow up with your primary care physician in 10-14 days for re- evaluation and staple removal. Otherwise, your exam and CT scan of your head and neck did not show signs of an emergent condition at this time. Acetaminophen for pain as needed. Return to the emergency department for worsening symptoms as described in the accompanying instructions. Problem Qualifiers
[2017-03-29] MEDS ORDERED: DIPHTHERIA/TETANUS/PERTUSSIS 0.5 ML SYR/VIAL IM. ONE (13:30)
--- NOTE | 2017-03-29 14:09 | DIAGNOSTIC IMAGING REPORT ---
HEAD WITHOUT CONTRAST (CT) CLINICAL HISTORY: 86 years-old Male presenting with DYE fall, neck pain. TECHNIQUE: Multidetector CT imaging of the head was performed without the use of intravenous contrast. IV contrast: None. A dose lowering technique was used consistent with the principles of ALARA (as low as reasonably achievable). COMPARISON: 03/16/2017. CT DOSE (mGy.cm): The estimated cumulative dose is 638.56 mGycm. FINDINGS: Whey Department Operator topogram: Unremarkable. Proportional ventricular and sulcal prominence, likely age-related parenchymal volume loss. Periventricular and subcortical white matter hypoattenuation, nonspecific but likely indicative of chronic small vessel ischemic change. No mass effect or midline shift. No hemorrhage or acute territorial infarct. No extra-axial fluid collection. Paranasal sinuses and mastoid air cells clear. Calvarium intact. Small focal subcutaneous tissue swelling and infiltration at the right parietal vertex. IMPRESSION: 1. Chronic small vessel ischemic change. No acute intracranial abnormality. 2. Small contusion of the subcutaneous tissue at the right parietal vertex. Electronically signed by: Drew Ugalde M.D. 03/29/2017 2:07 PM Dictated Date/Time: 03/29/2017 2:03 PM
--- NOTE | 2017-03-29 14:21 | DIAGNOSTIC IMAGING REPORT ---
CT OF THE CERVICAL SPINE CLINICAL HISTORY: Neck pain status post trauma COMPARISON STUDY: No previous studies for comparison. CT DOSE: 459.97 mGycm TECHNIQUE: CT scan of the cervical spine was performed from the skull base to the thoracic inlet. Images are reviewed in the axial, sagittal, and coronal planes. IV contrast was not administered for this examination. A dose lowering technique was utilized adhering to the principles of ALARA. FINDINGS: The visualized portions of the lung apices reveal no evidence of pneumothorax. There is jugular bulb asymmetry with a large right jugular bulb with marked bony thinning between the jugular bulb and auditory canal. There is a calcified right lobe thyroid nodule. The prevertebral soft tissues are normal. No fractures or traumatic subluxations are visualized. There are advanced multilevel degenerative changes. There is 4 mm of retrolisthesis of C5 on C6, likely arthritic. IMPRESSION: 1. No acute fractures identified 2. Advanced multilevel spondylitic changes. 4 mm of retrolisthesis of C5 on C6 likely arthritic. Spinal stenosis at the C5-6 level. Multilevel foraminal narrowing. Electronically signed by: Will Trinidad M.D. 03/29/2017 2:19 PM Dictated Date/Time: 03/29/2017 2:15 PM
[2017-03-29 14:46] VITALS: BP 177/89; PULSE 68; O2SAT 96
== END 2017-03-29 15:46 | disposition home or self-care (01) ==
LOC: EDBD 12:36 → C.EDB 12:37
DX: S01.01XA Laceration without foreign body of scalp, initial encounter (principal); W19.XXXA Unspecified fall, initial encounter; I25.10 Atherosclerotic heart disease of native coronary artery without angina pectoris; I10 Essential (primary) hypertension; Z86.73 Personal history of transient ischemic attack (TIA), and cerebral infarction without residual deficits; Z87.891 Personal history of nicotine dependence; Z79.82 Long term (current) use of aspirin; Z23 Encounter for immunization; Z79.02 Long term (current) use of antithrombotics/antiplatelets

== ENCOUNTER → 2017-04-08 | Outpatient (CLI) | payer BC, OTHER ==
[~2017-04-08] MED LIST changes: -BISA-71; -CEPH500C PO
== END | disposition home or self-care (01) ==
LOC: C.LABVPSUA 01:30
PROVIDERS: ATTEND Internal Medicine Critical Care Medicine
DX: R53.1 Weakness (principal)

== ENCOUNTER → 2017-04-10 | Outpatient (CLI) | payer OTHER, BC ==
[2017-04-10 10:08] LABS: BASO % 0.2 %; BASO ABS # 0.01 K/uL (0-0.2); EOS % 2.5 %; EOS ABS # 0.14 K/uL (0-0.5); HEMATOCRIT 41.6 % (42-52); HEMOGLOBIN 13.7 g/dL (14.0-18.0); IG# 0.01 K/uL (0.00-0.02); LYMPH % 19.5 %; LYMPH ABS # 1.09 K/uL (1.2-3.4); MEAN CELL VOLUME 89.5 fL (80-100); MEAN CORPUSCULAR HEMOGLOBIN 29.5 pg (25-34); MEAN CORPUSCULAR HGB CONC 32.9 g/dl (32-36); MEAN PLATELET VOLUME 9.7 fL (7.4-10.4); MONO % 13.1 %; MONO ABS # 0.73 K/uL (0.11-0.59); NEUT % 64.5 %; NEUT ABS # 3.61 K/uL (1.4-6.5); PLATELET COUNT 187 K/uL (130-400); RED CELL DISTRIBUTION WIDTH CV 16.1 % (11.5-14.5); WHITE BLOOD COUNT 5.59 K/uL (4.8-10.8)
[2017-04-10 10:23] LABS: BLOOD UREA NITROGEN 14 mg/dl (7-18); CARBON DIOXIDE 30 mmol/L (21-32); GLUCOSE 97 mg/dl (70-99); SODIUM 139 mmol/L (136-145)
== END ==
LOC: C.LABVPSUW 09:26
PROVIDERS: ATTEND Internal Medicine Critical Care Medicine
DX: R53.1 Weakness (principal); R50.9 Fever, unspecified; C61 Malignant neoplasm of prostate

== ENCOUNTER 2018-04-22 02:54 | Inpatient (IN) ==
[2018-04-22] MEDS ORDERED: PIPERACILL/TAZOBAC CONSULT ACTIVE PRN (03:54)
[2018-04-22] MEDS ORDERED: DAPTOmycin 450 MG in SYRINGE 0 ML IV ONE (03:54)
[2018-04-22] MEDS ORDERED: PIPERACILLIN/TAZOBACTAM 4.5 GM/120 ML BAG IV ONE (03:54)
[2018-04-22 04:25] LABS: Basophils # (auto) 0.01 K/uL (0-0.2); Basophils % (auto) 0.1 %; Eosinophils # (auto) 0.05 K/uL (0-0.5); Eosinophils % (auto) 0.6 %; Hematocrit (blood only) 40.5 % (42-52); Hemoglobin 13.1 g/dL (14.0-18.0); Immature Granulocytes # (auto) 0.01 K/uL (0.00-0.02); Immature Granulocytes % (auto) 0.1 %; Lymphocytes # (auto) 0.66 K/uL (1.2-3.4); Lymphocytes % (auto) 8.6 %; Mean Corpuscular Hgb Conc 32.3 g/dL (32-36); Mean Corpuscular Volume 90.4 fL (80-100); Mean Platelet Volume 9.3 fL (7.4-10.4); Monocytes # (auto) 1.34 K/uL (0.11-0.59); Monocytes % (auto) 17.4 %; Neutrophils # (auto) 5.64 K/uL (1.4-6.5); Neutrophils % (auto) 73.2 %; Platelet Count 184 K/uL (130-400); RDW Coefficient of Variation 16.9 % (11.5-14.5); RDW Standard Deviation 55.6 fL (36.4-46.3); Red Blood Count 4.48 M/uL (4.7-6.1); White Blood Count 7.71 K/uL (4.8-10.8)
[2018-04-22 04:43] LABS: Alanine Aminotransferase 22 U/L (12-78); Albumin Level 3.3 gm/dl (3.4-5.0); Aspartate Aminotransferase 16 U/L (15-37); BUN Creatinine Ratio 20.6 (10-20); Blood Urea Nitrogen 17 mg/dl (7-18); Calcium 8.7 mg/dl (8.5-10.1); Carbon Dioxide 27 mmol/L (21-32); Chloride 107 mmol/L (98-107); Creatinine Clr Calc Pharmacy 63.5 ml/min; Est GFR (Non-African American) 77.6; Glucose 119 mg/dl (70-99); Potassium 4.2 mmol/L (3.5-5.1); Sodium 140 mmol/L (136-145)
[2018-04-22 04:53] LABS: Alkaline Phosphatase 60 U/L (45-117); Bilirubin,Total 1.5 mg/dl (0.2-1); Creatine Kinase 38 U/L (39-308); Creatine Kinase MB 1.9 ng/ml (0.5-3.6); Globulin 3.4 gm/dl (2.5-4.0); Total Protein 6.7 gm/dl (6.4-8.2); Troponin I < 0.015 ng/ml (0-0.045)
--- NOTE | 2018-04-22 06:32 | CT Scan Report ---
CT head/brain wo con CLINICAL HISTORY: 87 years-old Male presenting with confusion, AMS. TECHNIQUE: Multidetector CT imaging of the head was performed without the use of intravenous contrast . IV contrast: None. One or more dose lowering techniques were used consistent with the principles of ALARA (as low as reasonably achievable), including automatic exposure control, mA or kV adjustment t o individual patient size, and/or use of iterative reconstruction. COMPARISON: 02/25/2018. CT DOSE (mGy.cm): The estimated cumulative dose is 614.27 mGy.cm. FINDINGS: Clinical Educator topogram: Unremarkable. Proportional ventricular and sulcal prominence, likely age-related parenchymal volume loss. No hemorr ольга. Periventricular and subcortical white matter hypoattenuation, nonspecific but likely indicative of chronic small vessel ischemic change. No acute territorial infarct. No mass effect or midline brody ft. No extra-axial fluid collection. Paranasal sinuses and mastoid air cells clear. Calvarium intact. Bilateral koi lenses are absent. IMPRESSION: 1. Chronic small vessel ischemic change. No acute intracranial abnormality. Electronically signed by: Drew Ugalde M.D. 04/22/2018 6:30 AM
--- NOTE | 2018-04-22 06:47 | Emergency Department Note ---
History of Present Illness General Chief complaint: Weakness Time Seen by Provider: 04/22/18 03:29 Source: patient and EMS Mode of arrival: EMS Limitations: no limitations History of Present Illness Onset (ago): hour(s) 4 Location: lower extremity Radiation: extremity Severity: moderate Pain Consistency: + constant Quality: + dull Relieved By: + none Exacerbated By: + none Associated symptoms: + confusion This is an 87-year-old male who presents emergency department complaining of lower extremity cellulitis.. The patient reports he is unable to walk on the leg. He does have a history of cellulitis in this leg as well as an infection in his toe. Patient has no other complaints denies any chest pain or abdominal pain. Patient has not taken anything for the pain. Home Medications Home Medications Medication Instructions Recorded Confirmed Type cholecalciferol (vitamin D3) 1,000 1,000 units PO DAILY 11/06/17 04/22/18 History unit capsule clopidogrel 75 mg tablet 75 mg PO DAILY 11/06/17 04/22/18 History furosemide 20 mg tablet 20 mg PO DAILY 11/06/17 04/22/18 History pravastatin 40 mg tablet 40 mg PO DAILY 11/06/17 04/22/18 History dsmgeghysjul-xrsy-tpgxg acid 1 tab PO QAM #30 tab 02/01/18 04/22/18 Rx [Certavite-Antioxidant] acetaminophen [Tylenol Extra 500 mg PO Q4 PRN MDD 6 tabs daily 04/22/18 History Strength] nitroglycerin [Nitrostat] 0.4 mg SUBLINGUAL UD PRN 04/22/18 04/22/18 History polyethylene glycol 3350 [Miralax] 17 g PO DAILY PRN 04/22/18 04/22/18 History sennosides-docusate sodium 1 tab PO BID PRN 04/22/18 04/22/18 History [Senna-S] Allergies Allergy/AdvReac Type Severity Reaction Status Date / Time No Known Allergies Allergy Verified 04/22/18 05:49 Past Med/Surg History Medical History Pressure ulcer of toe of left foot, stage 2 (Acute) Vascular insufficiency of extremity Pressure ulcer of left buttock, stage 2 Atrial flutter Chronic diastolic CHF (congestive heart failure) Rheumatoid arthritis Right bundle branch block CAD (coronary artery disease) (Chronic) Ambulatory dysfunction (Resolved) Hypertension (Resolved) Pressure ulcer (Acute) Acute cerebrovascular insufficiency (Chronic) CAD (coronary artery disease) (Chronic) CHF (congestive heart failure) (Chronic) Gait abnormality (Chronic) Osteoarthritis (Chronic) 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) Venous insufficiency (chronic) (peripheral) (Chronic) Prostate CA (Resolved) TIA (transient ischemic attack) (Resolved) 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 Fall Hyperbilirubinemia Influenza A Pressure ulcer of toe of right foot, stage 2 TIA (transient ischemic attack) UTI (urinary tract infection) Surgical History S/P knee surgery (Resolved) TKR b/l S/P radiation therapy (Resolved) S/P triple vessel bypass (Resolved) History of cataract surgery History of cholecystectomy History of knee surgery S/P triple vessel bypass in [place] - Family History Other No significant family history Social History marital status: marital status details: 1 son Current Living Situation: Spouse Current Living Situation Comment: Maura at [facility] current occupational status: retired current occupation: fiberoptics at [employer] Feels Safe at Home: Yes Smoking Status: Former smoker Tobacco Type: cigarettes Cigarettes per Day: 1/2 ppd Hx Alcohol Use: Yes (OCCASSIONAL) Alcohol type: wine Alcohol Intake Frequency: a few times a week Hx Substance Use: No Beliefs That Will Affect Care: None Preferred Language: Syriac well-balanced diet: daily or most days during the past year weight has: remained stable Review of Systems A total of 10 systems reviewed and were otherwise negative Physical Exam Vital Signs Vital Signs - 24 hr 04/22/18 02:58 04/22/18 02:59 04/22/18 04:02 Temperature 37.3 C Temperature Source Oral Sepsis Recent Fever Within 48 Hours No Sepsis New/Unexplained Change in Mental Status No Sepsis Action Taken by Nursing No Action Required Pulse Rate 74 74 Pulse Rate from SpO2 Sensor 73 Respiratory Rate 16 18 Blood Pressure 144/75 H 144/75 H Blood Pressure Mean 98 98 Pulse Oximetry 92 91 95 Oxygen Delivery Method Room Air Room Air 04/22/18 04:13 04/22/18 04:31 04/22/18 05:01 Temperature Temperature Source Sepsis Recent Fever Within 48 Hours Sepsis New/Unexplained Change in Mental Status Sepsis Action Taken by Nursing Pulse Rate 54 L 48 L 56 L Pulse Rate from SpO2 Sensor 57 L 49 L 51 L Respiratory Rate 16 16 16 Blood Pressure 146/67 H 153/65 H 126/71 Blood Pressure Mean 93 94 89 Pulse Oximetry 95 95 93 Oxygen Delivery Method 04/22/18 05:31 04/22/18 06:21 04/22/18 06:31 Temperature Temperature Source Sepsis Recent Fever Within 48 Hours Sepsis New/Unexplained Change in Mental Status Sepsis Action Taken by Nursing Pulse Rate 38 L 53 L 45 L Pulse Rate from SpO2 Sensor 40 L 55 L 48 L Respiratory Rate 15 18 16 Blood Pressure 135/72 121/62 123/54 L Blood Pressure Mean 93 81 77 Pulse Oximetry 92 94 92 Oxygen Delivery Method GENERAL: Patient is a healthy-appearing well-nourished male HEAD: Normocephalic atraumatic EYES: Ocular movements intact pupils equal and react to light OROPHARYNX mucous membranes are moist no exudates present no erythema or edema present NECK: Supple no nuchal rigidity CHEST: Good equal expansion LUNGS: Clear and equal to auscultation CARDIAC: Normal S1 and S2 ABDOMEN: Soft nontender no guarding BACK: No CVA tenderness EXTREMITIES: No pain upon palpation normal muscle strength in all groups no clubbing cyanosis or edema, Pt has a large amount of cellulitis extending up left leg past knee NEURO: Patient is following commands is answering questions appropriately. Alert and oriented x3 Cranial Nerves 2-12 grossly intact Course Administered Medications Discontinued Medications Piperacillin Sod/Tazobactam Sod (Zosyn) 4.5 gm in 120 mls @ 240 mls/hr IV NOW ONE Stop: 04/22/18 04:23 Last Infusion: 04/22/18 05:37 Dose: 0 mls/hr Admin: 04/22/18 04:59 Dose: 240 mls/hr Daptomycin 450 mg/ Syringe 9 mls @ 4.5 mls/min IV NOW ONE Stop: 04/22/18 03:55 Last Admin: 04/22/18 05:37 Dose: 4.5 mls/min Medical Decision Making Differential Diagnosis Differential diagnosis includes cellulitis, DVT, pneumonia, urinary tract infection, anemia is provided at the end zone Medical Records Attestation: I reviewed the patient's medical records. Home Medications Current Medication List: was personally reviewed by me Laboratory Data Attestation: I reviewed the patient's lab results. Result diagrams: 04/22/18 04:10 04/22/18 04:10 Lab Results 04/22/18 04/22/18 Range/Units 04:10 04:10 WBC 7.71 (4.8-10.8) K/uL RBC 4.48 L (4.7-6.1) M/uL Hgb 13.1 L (14.0-18.0) g/dL Hct 40.5 L (42-52) % MCV 90.4 (80-100) fL MCH 29.2 (25-34) pg MCHC 32.3 (32-36) g/dL RDW Std Deviation 55.6 H (36.4-46.3) fL RDW Coeff of Yusef 16.9 H (11.5-14.5) % Plt Count 184 (130-400) K/uL MPV 9.3 (7.4-10.4) fL Immature Gran % (Auto) 0.1 % Neut % (Auto) 73.2 % Lymph % (Auto) 8.6 % Centre % (Auto) 17.4 % Eos % (Auto) 0.6 % Baso % (Auto) 0.1 % Immature Gran # (Auto) 0.01 (0.00-0.02) K/uL Neut # (Auto) 5.64 (1.4-6.5) K/uL Lymph # (Auto) 0.66 L (1.2-3.4) K/uL Centre # (Auto) 1.34 H (0.11-0.59) K/uL Eos # (Auto) 0.05 (0-0.5) K/uL Baso # (Auto) 0.01 (0-0.2) K/uL Sodium 140 (136-145) mmol/L Potassium 4.2 (3.5-5.1) mmol/L Chloride 107 (98-107) mmol/L Carbon Dioxide 27 (21-32) mmol/L Anion Gap 6.0 (3-11) BUN 17 (7-18) mg/dl Creatinine 0.84 (0.6-1.4) mg/dl Est Cr Clr Drug Dosing 63.5 ml/min Est GFR ( Amer) 90.0 Est GFR (Non-Af Amer) 77.6 BUN/Creatinine Ratio 20.6 H (10-20) Glucose 119 H (70-99) mg/dl Calcium 8.7 (8.5-10.1) mg/dl Total Bilirubin 1.5 H (0.2-1) mg/dl AST 16 (15-37) U/L ALT 22 (12-78) U/L Alkaline Phosphatase 60 (45-117) U/L Total Creatine Kinase 38 L (39-308) U/L CK-MB (CK-2) 1.9 (0.5-3.6) ng/ml CK/CKMB % Calc 5.0 H (0-3.0) Troponin I < 0.015 (0-0.045) ng/ml Total Protein 6.7 (6.4-8.2) gm/dl Albumin 3.3 L (3.4-5.0) gm/dl Globulin 3.4 (2.5-4.0) gm/dl Albumin/Globulin Ratio 1.0 (0.9-2) TSH 0.798 (0.300-4.500) uIu/ml Imaging Data Attestation: I personally reviewed and interpreted this imaging study as follows : My Impression: 1 view of the chest was interpreted by me shows no evidence of pneumonia congestion or pneumothorax. Radiologist's Impression: CT head/brain wo con CLINICAL HISTORY: 87 years-old Male presenting with confusion, AMS. TECHNIQUE: Multidetector CT imaging of the head was performed without the use of intravenous contrast. IV contrast: None. One or more dose lowering techniques were used consistent with the principles of ALARA (as low as reasonably achievable), including automatic exposure control, mA or kV adjustment to individual patient size, and/or use of iterative reconstruction. COMPARISON: 02/25/2018. CT DOSE (mGy.cm): The estimated cumulative dose is 614.27 mGy.cm. FINDINGS: Draw Bench Operator topogram: Unremarkable. Proportional ventricular and sulcal prominence, likely age-related parenchymal volume loss. No hemorrhage. Periventricular and subcortical white matter hypoattenuation, nonspecific but likely indicative of chronic small vessel ischemic change. No acute territorial infarct. No mass effect or midline shift. No extra-axial fluid collection. Paranasal sinuses and mastoid air cells clear. Calvarium intact. Bilateral galena lenses are absent. IMPRESSION: 1. Chronic small vessel ischemic change. No acute intracranial abnormality. Electronically signed by: Drew Ugalde M.D. 04/22/2018 6:30 AM Dictated: 04/22/18627 Transcribed: 04/22/18627 Ultrasound venous bilateral lower extremities: No evidence of DVT. Blood Pressure Blood Pressure Findings: Normal blood pressure MDM Narrative This is an 87-year-old male who presents emergency department over concerns that he has cellulitis. The patient reports generalized weakness and he cannot move on his left leg. For this reason an IV was established, he was given IV Zosyn as well as daptomycin. He does not have an elevation in his white blood cell count has a normal renal profile however due to the inability to walk I did discuss the case with the hospitalist service who agreed to admit the patient. Impression & Plan Cellulitis Discharge Plan Visit Data Chief Complaint: Weakness ED Provider: Ruperto Wade Discharge Problem: Cellulitis Forms Stand Alone Forms: My [facility] Prescriptions Prescriptions: No Action cholecalciferol (vitamin D3) 1,000 unit capsule 1,000 units PO DAILY RF: 0 clopidogrel [Plavix] 75 mg tablet 75 mg PO DAILY RF: 0 furosemide [Lasix] 20 mg tablet 20 mg PO DAILY RF: 0 pravastatin 40 mg tablet 40 mg PO DAILY RF: 0 rmjoczeoyqbj-qavv-bfidr acid [Certavite-Antioxidant] 18-400 mg-mcg Tablet 1 tab PO QAM Qty: 30 RF: 0 sennosides-docusate sodium [Senna-S] 8.6-50 mg Tablet 1 tab PO BID PRN (Reason: Constipation) RF: 0 acetaminophen [Tylenol Extra Strength] 500 mg Tablet 500 mg PO Q4 MDD 6 tabs daily PRN (Reason: Fever Or Pain) RF: 0 nitroglycerin [Nitrostat] 0.4 mg Tablet, Sublingual 0.4 mg Sublingual UD PRN (Reason: chestpain) RF: 0 polyethylene glycol 3350 [Miralax] 17 gram/dose Powder 17 g PO DAILY PRN (Reason: Constipation) RF: 0
--- NOTE | 2018-04-22 07:31 | Ultrasound Report ---
US venous doppler LE CLINICAL HISTORY: 87 years-old Male presenting with Pt c/o b/l leg pain. TECHNIQUE: Real-time grayscale and color and spectral Doppler ultrasound imaging of the veins of the bilateral lower extremities was performed. Compression and augmentation were also utilized. COMPARISON: 11/27/2017. FINDINGS: RIGHT: Common femoral vein: Patent. Greater saphenous vein (superficial): Patent. Deep femoral vein: Patent. Femoral vein: Patent. Popliteal vein: Patent. Calf veins: Limited visualization secondary to subcutaneous edema. LEFT: Common femoral vein: Patent. Greater saphenous vein (superficial): Patent. Deep femoral vein: Patent. Femoral vein: Patent. Popliteal vein: Patent. Calf veins: Limited visualization secondary to subcutaneous edema. Other: None. IMPRESSION: 1. No evidence of deep venous thrombosis. 2. Bilateral lower leg subcutaneous edema. Electronically signed by: Drew Ugalde M.D. 04/22/2018 7:29 AM
--- NOTE | 2018-04-22 07:37 | History & Physical Report ---
Date of Service April 22, 2018 Assessment & Plan (1) Cellulitis: 87M with a PMHx of MRSA, Left Foot Osteo (confirmed 02/2018), cellulitis, Bacteremia (Pseudomonas), CHF, A Flutter, TIA presents with worsening foot pain and weakness for the past 48 hours. Admitted for cellulitis. {} Cellulitis of LE bilaterally He does have h/o pseudomonas bacteremia/septicemia from 2018 from skin source. Pt received Zosyn in the ER - ordered blood cultures after pt received Abx. All prior wound culture results reviewed - he has had strep, pseudomonas, stenotrophomonas, and MRSA grow from his foot wounds. Will start on IV Cefepime, Levaquin and Vanco. Consult wound care. Blood cultures pending. Will obtain wound cultures. {} Chronic Osteomyelitis (stable) MRI in Mar 12 2018 showed left foot chronic osteomylitis. Clinic note from Dr. Lizarraga's office Mar 20, rx'ed Bactrim trial for 3 weeks and then follow up in 3 weeks. It's unclear if patient was taking Bactrim. Repeat MRI today of L foot shows stable osteo. No Osteo on R foot. CRP, ESR and Lactate WNL. Can likely be dishcarged on Bactrim with outpatient ID follow up. {} Recent Fall Pt states his fall was due to foot pain and weakness. Denies any cardiac symptoms such as SOB, chest pain or dyspnea on exertion. Pt may require rehab - will wait for improvement before consulting PT and OT. {} CAD (coronary artery disease) - As documented in chart. Echo in 2016 showed Grade 1 DD. Continue statin and Plavix. Pt thinks he takes ASA 48H - unsure. Pt doesn't think he takes a BB. {} TIA (transient ischemic attack): Documented in chart. c/w Plavix as above {} Prostate CA: Documented in chart, noted. {} Rheumatoid Arthritis As evidence by ulnar deviation of MCPs. {} Atrial flutter: documentation from prior hospitalization suggests he has had paroxysmal a. flutter prior. per chart review pt is followed by [facility]. he has been deemed a poor anticoagulation candidate due to weekly or twice weekly falls, some of which have involved head trauma. EKG showed A. Flutter with asymptomatic bradycardia. Pt is not on a BB. Must have been stopped between ED visit on 02/25/18 and this visit. {} Chronic diastolic CHF (congestive heart failure): not on BB likely due to bradycardia. C/w 20mg Lasix daily. 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 no Rx needed. {} Pressure ulcer, buttock - resolved well healed on exam. {} DVT prophylaxis: heparin 5000 TID {} Dispo Lives at the [facility], may need rehab depending on course, consider PT and OT consults once foot pain improves. Admit to Med Surg. DNR - POLST form from last admission reviewed. (2) Atrial flutter: (3) DVT prophylaxis: (4) Chronic diastolic CHF (congestive heart failure): (5) Hypertension: (6) HLD (hyperlipidemia): History of Present Illness Primary Care Provider: Drew Aldrich MD 87M with a PMHx of MRSA, Left Foot Osteo (confirmed 03/12/2018), cellulitis, Bacteremia (Pseudomonas), CHF, A Flutter, TIA presents with worsening foot pain and weakness for the past 48 hours. Pt lives at [place] and was recommended to go to the ER for his foot pain and weakness. Pt also fell in the past 24hours and has a history of falls. Pt states he fell because he was weak and his feet hurt. Pt reports his cellulitis that is chronic. Pt recalls being told he has osteomyelitis but denies being on daily Abx. Per chart review MRI of left foot shows osteomyelitis in Mar 12, 2018. Per Dr. Lizarraga's clinic note on Mar 20, pt was to trial Bactrim for chronic osteo and Follow up in 3 weeks. Unclear whether pt was taking Bactrim - pt doesn't think so. Pt confirms that he prefers not to have an amputation. Pt remembers somebody telling something about a low heart rate which is why he is no longer is on a beta jimy. ED visit from 02/25/19 shows pt was on Metoprolol. ROS: Pt denies fevers, denies chills. States that his feet feel hurt bilaterally. Pt denies chest pain, denies SOB, no diarrhea, no vomiting. No nausea. + bilateral foot pain. Pt states his pressure ulcer on his right buttocks has resolved. Allergies Allergy/AdvReac Type Severity Reaction Status Date / Time No Known Allergies Allergy Verified 04/22/18 05:49 Home Medications Home Medications Medication Instructions Recorded Confirmed Type cholecalciferol (vitamin D3) 1,000 1,000 units PO DAILY 11/06/17 04/22/18 History unit capsule clopidogrel 75 mg tablet 75 mg PO DAILY 11/06/17 04/22/18 History furosemide 20 mg tablet 20 mg PO DAILY 11/06/17 04/22/18 History pravastatin 40 mg tablet 40 mg PO DAILY 11/06/17 04/22/18 History rvicqoyspzux-fhfj-zlcco acid 1 tab PO QAM #30 tab 02/01/18 04/22/18 Rx [Certavite-Antioxidant] acetaminophen [Tylenol Extra 500 mg PO Q4 PRN MDD 6 tabs daily 04/22/18 History Strength] nitroglycerin [Nitrostat] 0.4 mg SUBLINGUAL UD PRN 04/22/18 04/22/18 History polyethylene glycol 3350 [Miralax] 17 g PO DAILY PRN 04/22/18 04/22/18 History sennosides-docusate sodium 1 tab PO BID PRN 04/22/18 04/22/18 History [Senna-S] Past Med/Surg History Medical History Pressure ulcer of toe of left foot, stage 2 (Acute) Vascular insufficiency of extremity Pressure ulcer of left buttock, stage 2 Atrial flutter Chronic diastolic CHF (congestive heart failure) Rheumatoid arthritis Right bundle branch block CAD (coronary artery disease) (Chronic) Ambulatory dysfunction (Resolved) Hypertension (Resolved) Pressure ulcer (Acute) Acute cerebrovascular insufficiency (Chronic) CAD (coronary artery disease) (Chronic) CHF (congestive heart failure) (Chronic) Gait abnormality (Chronic) Osteoarthritis (Chronic) 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) Venous insufficiency (chronic) (peripheral) (Chronic) Prostate CA (Resolved) TIA (transient ischemic attack) (Resolved) 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 Fall Hyperbilirubinemia Influenza A Pressure ulcer of toe of right foot, stage 2 TIA (transient ischemic attack) UTI (urinary tract infection) Surgical History S/P knee surgery (Resolved) TKR b/l S/P radiation therapy (Resolved) S/P triple vessel bypass (Resolved) History of cataract surgery History of cholecystectomy History of knee surgery S/P triple vessel bypass in [place] - Family History Other No significant family history Social History marital status: marital status details: 1 son Current Living Situation: Spouse Current Living Situation Comment: Maura at [facility] current occupational status: retired current occupation: fiberoptics at [employer] Other Information That Helps Us Care for You: No Feels Safe at Home: Yes Safety Concerns: Feels Safe At This Time Smoking Status: Former smoker Do You Dip or Chew Tobacco: No Second Hand Exposure: No Hx Alcohol Use: No Hx Substance Use: No Beliefs That Will Affect Care: None Preferred Language: Surinamese Communication Ability: Effective Senior Sharepoint Architect Required: No well-balanced diet: daily or most days during the past year weight has: remained stable Physical Exam 2 Vital Signs (Past 24 Hours): Last Vital Signs Temp 37.3 C 04/22/18 02:59 Pulse 45 L 04/22/18 06:31 Resp 16 04/22/18 06:31 BP 123/54 L 04/22/18 06:31 Pulse Ox 92 04/22/18 06:31 Constitutional: well developed, well nourished and + well hydrated; no acute distress Eyes: PERRL, conjunctivae normal, anicteric sclerae Respiratory: normal respiratory effort, lungs clear to auscultation Cardiovascular: RRR, no murmur, no edema Vessels: normal peripheral pulses Extremities: + pedal edema; no calf tenderness Gastrointestinal (Abdomen): normal bowel sounds, soft, nontender, no hepatosplenomegaly Musculoskeletal: no cyanosis or clubbing, extremities motor strength 5/5 Skin: + erythema (erythema over more than half of the lower extremities, below the knees appears chronic venosu insufficiency,tender cellulitis appears to be limited to the feet bilaterally , pt has ulcerations over the 1st toes on his right and 1st stub on the right. Left foot is more warm than the right. ) Neurologic: patellar DTR's 2+ bilat, sensation intact Psychiatric: A+Ox3, euthymic affect Supervising Physician Co-Signing Physician Notes I personally examined the patient and verified all pickard points of history and exam, discussed case, and agree with decision making with Dr Del Castillo. Legs red and swollen, although he notes this is chronic, the feet seem to be acute. Otherwise as above Vitals noted, in general he is awake alert oriented x3 pleasant no acute distress. HEENT normal cephalic atraumatic mucous members moist. Breathing is unlabored no accessory muscle use. Bilateral lower extremities show chronic venous stasis changes from about the shins down his edema shows asymmetry left worse than right. On the arch of his right foot he has an ulcer with subcutaneous swelling underneath. Bilateral lower extremity cellulitis and osteomyelitis on the leftIV antibiotics likely transition to longer term oral antibiotics. Supportive care WeaknessPT/OT eval and treat, he may need time at SNF before he is able to return home. DVT prophylaxisheparin subcu Resident Activity Tracking Resident Involvement: Resident Care Provided Care Provided: [facility] Medicine _ (1) Atrial flutter Atrial flutter type: unspecified Qualified Code(s): I48.92 - Unspecified atrial flutter (2) Cellulitis Laterality: left Site of cellulitis: extremity Site of cellulitis of extremity: lower extremity Site of cellulitis of trunk: Qualified Code(s): L03.116 - Cellulitis of left lower limb (3) Hypertension Hypertension type: essential hypertension Qualified Code(s): I10 - Essential (primary) hypertension
[2018-04-22 08:52] LABS: Appearance Urine Clear (Clear); Bilirubin Urine Negative (Negative); Blood Urine Negative (Negative); Color Urine Yellow; Glucose Urine UA Negative (Negative); Ketones Urine Trace (Negative); Leukocyte Esterase Urine Negative (Negative); Nitrite Urine Negative (Negative); Protein Urine Negative (Negative); Specific Gravity Urine 1.025 (1.000-1.030); Urobilinogen Urine Negative (Negative)
--- NOTE | 2018-04-22 10:50 | XRay Report ---
XR chest 1V portable CLINICAL HISTORY: 87 years-old Male presenting with weakness. TECHNIQUE: Portable upright AP view of the chest was obtained. COMPARISON: . FINDINGS: The patient is PERSIAN rotated. Median sternotomy wires and mediastinal surgical clips unchanged. Atheros clerosis and tortuosity of the thoracic aorta. Cardiac silhouette mildly enlarged. Pulmonary vessel p rominence. Mildly low lung volumes with hypoventilatory changes. Patchy left basilar opacities sugges mary. No large pleural effusion or pneumothorax. Degenerative changes of the thoracic spine. Advanced degenerative changes of the shoulders. Upper abdomen normal. IMPRESSION: 1. Left basilar infiltrate suggested. This raises concern for pneumonia. Consider dedicated PA and l ateral views of the chest for better assessment. 2. Mild cardiomegaly with mild volume overload. 3. Mildly low lung volumes. Electronically signed by: Drew Ugalde M.D. 04/22/2018 10:49 AM
--- NOTE | 2018-04-22 11:07 | Magnetic Resonance Report ---
MR foot RT w/o con CLINICAL HISTORY: 87 years-old Male presenting with chronic cellulitis R foot. TECHNIQUE: Multisequence, multiplanar MR imaging of the right foot was performed without the use of i ntravenous contrast. IV contrast: None. COMPARISON: None. FINDINGS: Localizer images: Unremarkable. Extensive subcutaneous edema of primarily along the dorsum of the foot. No focal fluid collections alejandre ggest abscess. Bone marrow cystic change at the lateral aspect of the first carcinoma metatarsal articulation consis tent with degenerative change. Hallux valgus deformity suggested. Exuberant osteophytosis at the firs t metatarsal head with advanced degenerative changes of the first metatarsal metatarsal joint. No anna dence of bone marrow edema. Old fracture deformity of the distal diaphysis of the third metatarsal. N o evidence of an acute fracture. Musculature within normal limits. Tendons grossly intact. IMPRESSION: 1. Extensive subcutaneous edema primarily along the dorsal of the foot, nonspecific. This could repr esent cellulitis in the appropriate clinical setting. 2. No evidence of osteomyelitis. 3. Advanced degenerative changes of the first tarsometatarsal joint and first MTP joint. Electronically signed by: Drew Ugalde M.D. 04/22/2018 11:06 AM
--- NOTE | 2018-04-22 11:31 | Magnetic Resonance Report ---
MR foot LT w/o con CLINICAL HISTORY: 87 years-old Male presenting with L foot known osteo, eval for progression. TECHNIQUE: Multisequence, multiplanar MR imaging of the left foot was performed without the use of in travenous contrast. IV contrast: None. COMPARISON: 03/12/2018. FINDINGS: Localizer images: Unremarkable. Redemonstration of T2 hyperintense, T1 hypointense abnormal bone marrow signal intensity along the me dial aspect of the head of the proximal phalanx of the first toe. There is an associated overlying so ft tissue ulceration. The soft tissue defect may be new from prior though the appearance of the abnor mal bone marrow signal intensity is similar to prior. This does not appear to involve the distal phal anx of the first toe. Remaining bone marrow signal intensity normal. No fracture. There is significant valgus alignment at the interphalangeal joint of the first toe similar to prior, which is chronic. This may contribute to the soft tissue ulceration on the medial aspect of the leve l of the interphalangeal joint. Nonspecific diffuse subcutaneous edema primarily over the dorsal lateral aspect of the foot. Advanced degenerative changes of the first metatarsal phalangeal articulation with exuberant osteophy tosis as well as joint space loss. A lesser degree of degenerative changes noted at the second tarsom etatarsal articulation. Postsurgical changes of partial second toe amputation. Musculature grossly normal. Tendons grossly normal. IMPRESSION: 1. Similar appearance of abnormal bone marrow signal within the medial aspect of the head of the pro ximal phalanx of the first toe, which is consistent with osteomyelitis. No evidence of associated sep tic arthritis of the interphalangeal joint. 2. Associated soft tissue ulceration at the medial aspect of the interphalangeal joint of the first toe. No gross evidence of a soft tissue abscess. 3. Nonspecific diffuse subcutaneous edema in the foot. Electronically signed by: Drew Ugalde M.D. 04/22/2018 11:30 AM
[2018-04-22] MEDS ORDERED: NITROGLYCERIN SL 0.4 MG/TAB TAB SL PRN (11:34)
[2018-04-22] MEDS ORDERED: ZOLPIDEM TARTRATE 5 MG TAB PO PRN (11:34)
[2018-04-22] MEDS ORDERED: VANCOMYCIN HCL 500 MG in SODIUM CHLORIDE 0.9% 250 ML IV SCH (11:34)
[2018-04-22] MEDS ORDERED: ACETAMINOPHEN 500 MG TAB PO PRN (11:34)
[2018-04-22] MEDS ORDERED: DOCUSATE SODIUM/SENNA 50/8.6MG TAB PO PRN (11:34)
[2018-04-22] MEDS ORDERED: POLYETHYLENE (MIRALAX) 17 GM PACK PO PRN (11:34)
[2018-04-22] MEDS ORDERED: VANCOMYCIN CONSULT ACTIVE PRN (11:34)
[2018-04-22] MEDS: CEFEPIME 1,000 MG in SYRINGE 0 ML IV SCH ×2 (12:30→21:11)
[2018-04-22 12:37] LABS: INR 1.1 (0.9-1.1); Prothrombin Time 11.1 Seconds (9.0-12.0)
[2018-04-22] MEDS: LEVOFLOXACIN/D5W 750 MG/150 ML BAG IV SCH (13:22)
--- NOTE | 2018-04-22 14:27 | Pharmacy Report ---
Pharmacy Abx Initial Consult - Date of Service April 22, 2018 - Pharmacy Dosing Scope Date of Consult: 04-22 Consultation requested by: Dr. Del Castillo Pharmacy is consulted to initiate vancomycin dosing therapy, order appropriate labs and adjust drug dose/frequency. - Subjective The patient is a 87 year old M admitted on 04/22/18 09:03. - Objective Height: 5 ft 11 in Weight: 87.2 kg Vital Signs (Past 12hrs): Vital Signs Micro Results: 04/22/18 12:00 Blood Culture - Pending Blood 04/22/18 12:00 Blood Culture - Pending Blood - Assessment & Plan Assessment/Plan: Patient admitted with worsening foot pain/weakness over last 48 hrs. PMHx significant for chronic osteomyelitis; follows with Dr. Lizarraga's office outpatient and prescribed bactrim on 03/20 x 3 weeks per provider notes. Repeat MRI of foot positive for osteomyelitis. Prior wound cxs patient with hx of PA, stenotrophomonas, MRSA. Patient received zosyn and daptomycin doses x 1 in the ED earlier this morning. Pharmacy consulted on vancomycin - patient also on cefepime and levaquin (not consults) Vancomycin: * Patient already received daptomycin 450 mg x 1 in the ED (~6 mg/kg) - this dosing is appropriate for bone infection; would not need redosed with daptomcyin until tomorrow morning, however since transitioning to vancomycin will begin with dosing this evening and provide overlap for medication to accumulate * Will start loading dose of vancomycin for this evening with vancomycin 2250 mg (~25 mg/kg) and then begin maintenance dosing of vancomycin 1250 mg iv q 12 hrs (~15 mg/kg) - 12 hrs after loading dose given * Estimated kinetics: t 1/2~12 hrs, ke~0.06hr-1, CrCl ~64 ml/min - this particular dosing of vancomycin chosen based upon previous therapeutic levels while on this dosing on past admissions * Will plan to order a trough prior to the 4th maintenance dose to ensure therapeutic on 04/24 at 1930 Pharmacy will continue to follow and will adjust dose/frequency as necessary. Thank you.
[2018-04-22] MEDS: FUROSEMIDE 20 MG TAB PO SCH (15:21)
[2018-04-22] MEDS: CLOPIDOGREL BISULFATE 75 MG TAB PO SCH (15:21)
[2018-04-22] MEDS: HEPARIN SOD 5,000 UNIT/0.5 ML VIAL SQ SCH ×2 (15:29→21:27)
[2018-04-22] MEDS ORDERED: VANCOMYCIN HCL 2,250 MG in SODIUM CHLORIDE 0.9% 500 ML IV ONE (20:00)
[2018-04-23] MEDS: VANCOMYCIN HCL 1,250 MG in SODIUM CHLORIDE 0.9% 250 ML IV SCH ×2 (07:54→19:58)
[2018-04-23] MEDS: FUROSEMIDE 20 MG TAB PO SCH (07:55)
[2018-04-23] MEDS: HEPARIN SOD 5,000 UNIT/0.5 ML VIAL SQ SCH ×2 (07:55→20:41)
[2018-04-23] MEDS: CLOPIDOGREL BISULFATE 75 MG TAB PO SCH (08:04)
[2018-04-23 09:45] LABS: Est GFR (African American) 89.1; Est GFR (Non-African American) 76.9
[2018-04-23] MEDS: CEFEPIME 1,000 MG in SYRINGE 0 ML IV SCH ×2 (10:32→20:41)
[2018-04-23] MEDS: LEVOFLOXACIN/D5W 750 MG/150 ML BAG IV SCH (12:22)
--- NOTE | 2018-04-23 13:58 | Family Medicine Progress Note ---
Date of Service April 23, 2018 Assessment & Plan (1) Chronic osteomyelitis of toe of left foot: 87-year-old male with a history of hypertension, CHF, TIA presents with weakness in the setting of recurrent lower extremity cellulitis/chronic osteo- mellitus of the left great toe Osteomyelitis of left great toe ID following, appreciate recommendationscontinuing IV Vanco and cefepime Blood cultures, wound cultures pending we will make adjustments of antibiotics based on clinical course and culture results Continue wound care Continue daily p.o. Lasix for chronic lower extremity edema PT/OT Atrial fibrillation with low rates Appears that patient's metoprolol was held following last hospitalization as the patient was experiencing sinus pauses Currently not a candidate for a pacemaker Currently asymptomatic. We will continue to follow rates closely in the hospital Has had recent history of falls but more likely related to weakness, deconditioning, deformity of toes/chronic osteomyelitis Anticoagulation has been held secondary to concern for falls/head trauma CAD Continue statin, continue Plavix, continue to hold beta-jimy as described above TIA Continue Plavix Chronic diastolic heart failure Continue Lasix 20 mg Hypertension Continue furosemide DVT prophylaxis Heparin 5000 3 times daily (2) HLD (hyperlipidemia): (3) Pressure ulcer of toe of left foot, stage 2: (4) Cellulitis: (5) Osteomyelitis: (6) Rheumatoid arthritis: (7) Cellulitis: (8) Atrial flutter: Supervising Physician Co-Signing Physician Notes I saw the patient concurrent with the resident physician and confirmed pickard portions of the history and physical exam. I agree with the documentation including impression and plan as noted above. Patient remains afebrile. He is without complaints at present. Bilateral lower extremities show chronic venous stasis changes, edema shows asymmetry, left worse than right. IMPRESSION Cellulitis, bilateral lower extremities Osteomyelitis PLAN Continue current antibiotics Consult infectious disease Physical therapy and occupational therapy to eval and treat Subjective 87-year-old male with a history of hypertension, CHF, TIA presents with weakness in the setting of recurrent lower extremity cellulitis. Today the patient is awake and alert and drinking coffee. He states that he is feeling much better and is eager about going home. He denies any fevers, chills, night sweats. He is able to ambulate go to the bathroom on his own. He is tolerating a regular diet. Constitutional: no fever, no sweats and no body aches Ear, Nose, Mouth, Throat: no nasal congestion and no sore throat Respiratory: no cough, no chest congestion, no dyspnea and no wheezing Cardiovascular: no chest pain, no palpitations and no calf pain Gastrointestinal: no abdominal pain, no vomiting and no diarrhea/loose stools Integumentary: + sores Physical Exam 2 Vital Signs (Past 24 Hours): Last Vital Signs Temp 36.5 C 04/23/18 07:22 Pulse 59 L 04/23/18 07:22 Resp 20 04/23/18 07:22 BP 137/81 04/23/18 07:22 Pulse Ox 94 04/23/18 07:22 Constitutional: WD/WN, vitals as above Eyes: PERRL, conjunctivae normal, anicteric sclerae Neck: trachea midline, no thyromegaly Respiratory: normal respiratory effort, lungs clear to auscultation Cardiovascular: RRR, no murmur, no edema Gastrointestinal (Abdomen): normal bowel sounds, soft, nontender, no hepatosplenomegaly Musculoskeletal: Hyperpigmentation of bilateral lower extremity consistent with venous stasis. Ulceration on the pad of the right first digit of the right lower extremity, erythema of the left foot Results & Data Laboratory Results Laboratory Last Values WBC 7.71 K/uL (4.8-10.8) 04/22/18 04:10 RBC 4.48 M/uL (4.7-6.1) L 04/22/18 04:10 Hgb 13.1 g/dL (14.0-18.0) L 04/22/18 04:10 Hct 40.5 % (42-52) L 04/22/18 04:10 MCV 90.4 fL (80-100) 04/22/18 04:10 MCH 29.2 pg (25-34) 04/22/18 04:10 MCHC 32.3 g/dL (32-36) 04/22/18 04:10 RDW Std Deviation 55.6 fL (36.4-46.3) H 04/22/18 04:10 RDW Coeff of Yusef 16.9 % (11.5-14.5) H 04/22/18 04:10 Plt Count 184 K/uL (130-400) 04/22/18 04:10 MPV 9.3 fL (7.4-10.4) 04/22/18 04:10 Immature Gran % (Auto) 0.1 % 04/22/18 04:10 Neut % (Auto) 73.2 % 04/22/18 04:10 Lymph % (Auto) 8.6 % 04/22/18 04:10 Perry % (Auto) 17.4 % 04/22/18 04:10 Eos % (Auto) 0.6 % 04/22/18 04:10 Baso % (Auto) 0.1 % 04/22/18 04:10 Immature Gran # (Auto) 0.01 K/uL (0.00-0.02) 04/22/18 04:10 Neut # (Auto) 5.64 K/uL (1.4-6.5) 04/22/18 04:10 Lymph # (Auto) 0.66 K/uL (1.2-3.4) L 04/22/18 04:10 Perry # (Auto) 1.34 K/uL (0.11-0.59) H 04/22/18 04:10 Eos # (Auto) 0.05 K/uL (0-0.5) 04/22/18 04:10 Baso # (Auto) 0.01 K/uL (0-0.2) 04/22/18 04:10 ESR 8 mm/hr (0-14) 04/22/18 12:05 PT 11.1 Seconds (9.0-12.0) 04/22/18 04:10 INR 1.1 (0.9-1.1) 04/22/18 04:10 Sodium 140 mmol/L (136-145) 04/22/18 04:10 Potassium 4.2 mmol/L (3.5-5.1) 04/22/18 04:10 Chloride 107 mmol/L (98-107) 04/22/18 04:10 Carbon Dioxide 27 mmol/L (21-32) 04/22/18 04:10 Anion Gap 6.0 (3-11) 04/22/18 04:10 BUN 17 mg/dl (7-18) 04/22/18 04:10 Creatinine 0.86 mg/dl (0.6-1.4) 04/23/18 08:23 Est Cr Clr Drug Dosing 62.0 ml/min 04/23/18 08:23 Est GFR ( Amer) 89.1 04/23/18 08:23 Est GFR (Non-Af Amer) 76.9 04/23/18 08:23 BUN/Creatinine Ratio 20.6 (10-20) H 04/22/18 04:10 Glucose 119 mg/dl (70-99) H 04/22/18 04:10 POC Glucose 88 (70-99) 04/22/18 16:36 Lactate 1.4 mmol/L (0.4-2.0) 04/22/18 12:11 Calcium 8.7 mg/dl (8.5-10.1) 04/22/18 04:10 Total Bilirubin 1.5 mg/dl (0.2-1) H 04/22/18 04:10 AST 16 U/L (15-37) 04/22/18 04:10 ALT 22 U/L (12-78) 04/22/18 04:10 Alkaline Phosphatase 60 U/L (45-117) 04/22/18 04:10 Total Creatine Kinase 38 U/L (39-308) L 04/22/18 04:10 CK-MB (CK-2) 1.9 ng/ml (0.5-3.6) 04/22/18 04:10 CK/CKMB % Calc 5.0 (0-3.0) H 04/22/18 04:10 Troponin I < 0.015 ng/ml (0-0.045) 04/22/18 04:10 C-Reactive Protein 4.72 mg/dl (0-0.29) H 04/22/18 12:05 Total Protein 6.7 gm/dl (6.4-8.2) 04/22/18 04:10 Albumin 3.3 gm/dl (3.4-5.0) L 04/22/18 04:10 Globulin 3.4 gm/dl (2.5-4.0) 04/22/18 04:10 Albumin/Globulin Ratio 1.0 (0.9-2) 04/22/18 04:10 Procalcitonin < 0.05 ng/ml (0-0.5) 04/22/18 12:05 TSH 0.798 uIu/ml (0.300-4.500) 04/22/18 04:10 Urine Color Yellow 04/22/18 08:45 Urine Appearance Clear (Clear) 04/22/18 08:45 Urine pH 7.0 (4.5-7.5) 04/22/18 08:45 Ur Specific [place] 1.025 (1.000-1.030) 04/22/18 08:45 Urine Protein Negative (Negative) 04/22/18 08:45 Urine Glucose (UA) Negative (Negative) 04/22/18 08:45 Urine Ketones Trace (Negative) H 04/22/18 08:45 Urine Blood Negative (Negative) 04/22/18 08:45 Urine Nitrite Negative (Negative) 04/22/18 08:45 Urine Bilirubin Negative (Negative) 04/22/18 08:45 Urine Urobilinogen Negative (Negative) 04/22/18 08:45 Ur Leukocyte Esterase Negative (Negative) 04/22/18 08:45 Resident Activity Tracking Resident Involvement: Resident Care Provided Care Provided: Adult [facility] _ (1) Atrial flutter Atrial flutter type: unspecified Qualified Code(s): I48.92 - Unspecified atrial flutter (2) Cellulitis Laterality: unspecified laterality Site of cellulitis: extremity Site of cellulitis of extremity: lower extremity Site of cellulitis of trunk: Qualified Code(s): L03.119 - Cellulitis of unspecified part of limb (3) Cellulitis Laterality: left Site of cellulitis: extremity Site of cellulitis of extremity: lower extremity Site of cellulitis of trunk: Qualified Code(s): L03.116 - Cellulitis of left lower limb
--- NOTE | 2018-04-23 14:58 | Infectious Disease Consult ---
Date of Consultation April 23, 2018 Assessment & Plan (1) Chronic osteomyelitis of toe of left foot: 87-year-old male with chronic venous stasis, peripheral vascular disease with osteomyelitis of the left great toe, reasonably stabilized with Bactrim, now with possible worsening infection of foot. Pending further culture results , patient to be treated with IV antibiotics with vancomycin and cefepime. Will adjust once cultures are available. Length of IV antibiotics will be determined by clinical response. Will follow. (2) MRSA (methicillin resistant Staphylococcus aureus) infection: History of Present Illness Reason for Consultation: Cellulitis, osteomyelitis Attending Physician: Rigoberto Samuel DO History of Present Illness 87-year-old male well-known to me from previous infectious disease consultation follow-up, with history of chronic congestive heart failure, rheumatoid arthritis, coronary artery disease, and peripheral vascular disease, who has been followed at the wound care center because of left great toe ulceration with osteomyelitis of the tip of the toe. Cultures had previously grown MRSA. Patient had been treated with oral Bactrim and had shown some improvement with lack of progression of ulceration. He had been afebrile and tolerating antibiotics well. He now is readmitted after several falls, complaining of pain in his left foot. No report of significant fever or chills. He has been started empirically on vancomycin, cefepime, levofloxacin. Cultures are pending. Currently denies any pain in his foot. Allergies Allergy/AdvReac Type Severity Reaction Status Date / Time No Known Allergies Allergy Verified 04/22/18 05:49 Home Medications Home Medications Medication Instructions Recorded Confirmed Type cholecalciferol (vitamin D3) 1,000 1,000 units PO DAILY 11/06/17 04/22/18 History unit capsule clopidogrel 75 mg tablet 75 mg PO DAILY 11/06/17 04/22/18 History furosemide 20 mg tablet 20 mg PO DAILY 11/06/17 04/22/18 History pravastatin 40 mg tablet 40 mg PO DAILY 11/06/17 04/22/18 History [id number]-tmhc-[id number] acid 1 tab PO QAM #30 tab 02/01/18 04/22/18 Rx [Certavite-Antioxidant] acetaminophen [Tylenol Extra 500 mg PO Q4 PRN MDD 6 tabs daily 04/22/18 History Strength] nitroglycerin [Nitrostat] 0.4 mg SUBLINGUAL UD PRN 04/22/18 04/22/18 History polyethylene glycol 3350 [Miralax] 17 g PO DAILY PRN 04/22/18 04/22/18 History sennosides-docusate sodium 1 tab PO BID PRN 04/22/18 04/22/18 History [Senna-S] Patient History Medical History Pressure ulcer of toe of left foot, stage 2 (Acute) Vascular insufficiency of extremity Pressure ulcer of left buttock, stage 2 Atrial flutter Chronic diastolic CHF (congestive heart failure) Rheumatoid arthritis Right bundle branch block CAD (coronary artery disease) (Chronic) Ambulatory dysfunction (Resolved) Hypertension (Resolved) Pressure ulcer (Acute) Acute cerebrovascular insufficiency (Chronic) CAD (coronary artery disease) (Chronic) CHF (congestive heart failure) (Chronic) Gait abnormality (Chronic) Osteoarthritis (Chronic) 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) Venous insufficiency (chronic) (peripheral) (Chronic) Prostate CA (Resolved) TIA (transient ischemic attack) (Resolved) 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 Fall Hyperbilirubinemia Influenza A Pressure ulcer of toe of right foot, stage 2 TIA (transient ischemic attack) UTI (urinary tract infection) Surgical History S/P knee surgery (Resolved) TKR b/l S/P radiation therapy (Resolved) S/P triple vessel bypass (Resolved) History of cataract surgery History of cholecystectomy History of knee surgery S/P triple vessel bypass in [place] - Family History Other No significant family history Social History marital status: marital status details: 1 son Current Living Situation: Spouse Current Living Situation Comment: [facility] at [facility] current occupational status: retired current occupation: fiberoptics at [email or web address] Other Information That Helps Us Care for You: No Feels Safe at Home: Yes Safety Concerns: Feels Safe At This Time Smoking Status: Former smoker Do You Dip or Chew Tobacco: No Second Hand Exposure: No Hx Alcohol Use: No Hx Substance Use: No Beliefs That Will Affect Care: None Preferred Language: Mauritian Communication Ability: Effective Traffic Survey Technician Required: No well-balanced diet: daily or most days during the past year weight has: remained stable Review of Systems Generalized weakness and fatigue, otherwise all systems were reviewed and are negative except as per HPI Physical Exam 2 Vital Signs (Past 24 Hours): Last Vital Signs Temp 36.5 C 04/23/18 07:22 Pulse 59 L 04/23/18 07:22 Resp 20 04/23/18 07:22 BP 137/81 04/23/18 07:22 Pulse Ox 94 04/23/18 07:22 Constitutional: WD/WN, vitals as above comfortable; no acute distress Eyes: PERRL, conjunctivae normal, anicteric sclerae ENMT: external ear and nose normal, oropharynx normal Neck: trachea midline, no thyromegaly neck nontender Respiratory: normal respiratory effort, lungs clear to auscultation normal percussion; does not use accessory muscles Cardiovascular: Rate/Rhythm: regular rate and regular rhythm Heart Sounds: normal S1 and normal S2; no gallop, no murmur and no cardiac rub Vessels: normal peripheral pulses; no JVD Gastrointestinal (Abdomen): normal bowel sounds, soft, nontender, no hepatosplenomegaly Musculoskeletal: no cyanosis or clubbing, extremities motor strength 5/5 Spine: thoracic spine normal to inspection and lumbar spine normal to inspection ; no cervical spinal tenderness Skin: no rashes, warm and dry normal turgor and + ulcer (Left great toe dorsal surface, relatively unchanged from prior visit) Erythema of the left foot, bilateral chronic venous stasis changes of lower extremity Neurologic: patellar DTR's 2+ bilat, sensation intact no focal motor deficits Psychiatric: A+Ox3, euthymic affect Orientation: cooperative Lymphatic: no cervical or axillary lymphadenopathy no inguinal lymphadenopathy Results & Data Laboratory Results [facility] 04/23/18 08:23 Creatinine 0.86 Diagnostic Findings Microbiology 04/23/18 Unknown Foot Gram Stain - Final Name: RINA SMALL Acct: [id number] Status: DIS AMBR : 1930 [facility] Date: Age: 87 Sex: M Dis Date: Loc: Wound Care Center Spec: [id number] Collected: 03/06/18-UNK Received: 03/06/18-[address]: Esperanza Graham CRNP Copy To: Drew Aldrich M.D. Self, Referred Source: Toe,Left Great OV Order: Ordered: Surf Wnd Cul/Sm Procedure Result Verified Site Gram Stain Final 03/07/18-821 Gram Stain Result No Epithelial Cells No WBCs Seen No Organisms Seen Surface Wound Culture Final 03/09/18-1210 Organism 1 Staph aureus MRSA Quantity Moderate Sens Sensitivities to Follow Organism 2 Group B Beta Strep Quantity Few Sens Sensitivities to Follow Sensitivity results indicate a Methicillin-Resistant Staph aureus. Phoned to [facility] on 03/08/18 at 0754 by Damien Price. MRSA Grp.B Strp RX M.I.C. RX M.I.C. --- --------- --- --------- Ampicillin S 0.12 Azithromycin R >2 Cefepime S <=0.25 Cefotaxime S <=0.25 Ceftriaxone S <=0.25 Chloramphenicol S 4 Clindamycin R <=0.5 Clindamycin## S Daptomycin S 1 Erythromycin R >4 R >0.5 Oxacillin R >2 Penicillin S 0.06 Rifampin S <=1 Tetracycline R >8 Trimeth/Sulfa S <=0.5/9.5 Vancomycin S 2 S 1 Group B Beta Strep: Strep Plus ## D-TEST is negative. No inducible resistance to clindamycin determined S = SENSITIVE I = INTERMEDIATE R = RESISTANT Name: RINA SMALL : 1930 PAGE 1 Printed: 04/23/18 7578 END OF REPORT MR foot LT w/o con CLINICAL HISTORY: 87 years-old Male presenting with L foot known osteo, eval for progression. TECHNIQUE: Multisequence, multiplanar MR imaging of the left foot was performed without the use of intravenous contrast. IV contrast: None. COMPARISON: 03/12/2018. FINDINGS: Localizer images: Unremarkable. Redemonstration of T2 hyperintense, T1 hypointense abnormal bone marrow signal intensity along the medial aspect of the head of the proximal phalanx of the first toe. There is an associated overlying soft tissue ulceration. The soft tissue defect may be new from prior though the appearance of the abnormal bone marrow signal intensity is similar to prior. This does not appear to involve the distal phalanx of the first toe. Remaining bone marrow signal intensity normal. No fracture. There is significant valgus alignment at the interphalangeal joint of the first toe similar to prior, which is chronic. This may contribute to the soft tissue ulceration on the medial aspect of the level of the interphalangeal joint. Nonspecific diffuse subcutaneous edema primarily over the dorsal lateral aspect of the foot. Advanced degenerative changes of the first metatarsal phalangeal articulation with exuberant osteophytosis as well as joint space loss. A lesser degree of degenerative changes noted at the second tarsometatarsal articulation. Postsurgical changes of partial second toe amputation. Musculature grossly normal. Tendons grossly normal. IMPRESSION: 1. Similar appearance of abnormal bone marrow signal within the medial aspect of the head of the proximal phalanx of the first toe, which is consistent with osteomyelitis. No evidence of associated septic arthritis of the interphalangeal joint. 2. Associated soft tissue ulceration at the medial aspect of the interphalangeal joint of the first toe. No gross evidence of a soft tissue abscess. 3. Nonspecific diffuse subcutaneous edema in the foot. Electronically signed by: Drew Ugalde M.D. 04/22/2018 11:30 AM Dictated: 04/22/18 1125 Transcribed: 04/22/18 1125
[2018-04-24 06:49] LABS: Basophils # (auto) 0.02 K/uL (0-0.2); Basophils % (auto) 0.5 %; Eosinophils # (auto) 0.15 K/uL (0-0.5); Hematocrit (blood only) 39.4 % (42-52); Hemoglobin 12.9 g/dL (14.0-18.0); Immature Granulocytes # (auto) 0.01 K/uL (0.00-0.02); Immature Granulocytes % (auto) 0.3 %; Lymphocytes # (auto) 0.88 K/uL (1.2-3.4); Lymphocytes % (auto) 23.7 %; Mean Corpuscular Hgb Conc 32.7 g/dL (32-36); Mean Corpuscular Volume 88.1 fL (80-100); Mean Platelet Volume 9.3 fL (7.4-10.4); Monocytes # (auto) 0.59 K/uL (0.11-0.59); Monocytes % (auto) 15.9 %; Neutrophils # (auto) 2.06 K/uL (1.4-6.5); Neutrophils % (auto) 55.6 %; Platelet Count 188 K/uL (130-400); RDW Coefficient of Variation 16.6 % (11.5-14.5); RDW Standard Deviation 54.2 fL (36.4-46.3); Red Blood Count 4.47 M/uL (4.7-6.1); White Blood Count 3.71 K/uL (4.8-10.8)
[2018-04-24 07:18] LABS: BUN Creatinine Ratio 18.5 (10-20); Creatinine Clr Calc Pharmacy 61.3 ml/min; Est GFR (African American) 88.7; Est GFR (Non-African American) 76.5; Potassium 3.8 mmol/L (3.5-5.1)
[2018-04-24] MEDS ORDERED: VANCOMYCIN TROUGH ONE ×2 (07:30→19:30)
[2018-04-24] MEDS: VANCOMYCIN HCL 1,250 MG in SODIUM CHLORIDE 0.9% 250 ML IV SCH ×2 (07:54→20:26)
[2018-04-24] MEDS: FUROSEMIDE 20 MG TAB PO SCH (08:02)
[2018-04-24] MEDS: CLOPIDOGREL BISULFATE 75 MG TAB PO SCH (08:03)
[2018-04-24] MEDS: HEPARIN SOD 5,000 UNIT/0.5 ML VIAL SQ SCH ×2 (09:10→20:26)
[2018-04-24] MEDS: CEFEPIME 1,000 MG in SYRINGE 0 ML IV SCH (09:11)
--- NOTE | 2018-04-24 15:58 | Family Medicine Progress Note ---
Date of Service April 24, 2018 Assessment & Plan (1) Chronic osteomyelitis of toe of left foot: 87-year-old male with a history of hypertension, CHF, TIA presents with weakness in the setting of recurrent lower extremity cellulitis/chronic osteo- mellitus of the left great toe Osteomyelitis of left great toe ID following, appreciate recommendationscontinuing IV Vanco and cefepime No growth to date with blood cultures. Wound cultures preliminarily showing Staphylococcus species, sensitivities to follow. Continue wound care Continue daily p.o. Lasix for chronic lower extremity edema PT/OT Atrial fibrillation with low rates Appears that patient's metoprolol was held following last hospitalization as the patient was experiencing sinus pauses Currently not a candidate for a pacemaker Currently asymptomatic. We will continue to follow rates closely in the hospital Has had recent history of falls but more likely related to weakness, deconditioning, deformity of toes/chronic osteomyelitis Anticoagulation has been held secondary to concern for falls/head trauma CAD Continue statin, continue Plavix, continue to hold beta-jimy as described above TIA Continue Plavix Chronic diastolic heart failure Continue Lasix 20 mg Hypertension Continue furosemide DVT prophylaxis Heparin 5000 3 times daily (2) HLD (hyperlipidemia): (3) Pressure ulcer of toe of left foot, stage 2: (4) Osteomyelitis: (5) Rheumatoid arthritis: (6) Cellulitis: (7) Atrial flutter: Supervising Physician Co-Signing Physician Notes I saw the patient concurrent with the resident physician and confirmed pickard portions of the history and physical exam. I agree with the documentation including impression and plan as noted above. Patient remains afebrile. Bilateral lower extremities show chronic venous stasis changes; some interval improvement in the areas of warmth and erythema compared to yesterday. IMPRESSION Cellulitis, bilateral lower extremities Osteomyelitis PLAN Continue current antibiotics Appreciate infectious disease consult Physical therapy and occupational therapy to eval and treat Subjective 87-year-old male with a history of hypertension, CHF, TIA presents with weakness in the setting of recurrent lower extremity cellulitis. The patient continues to improve as far as constitutional symptomshe does not feel fatigued. Review of systems; patient denies fevers, chills, night sweats, chest pain, palpitations, syncope, cough, respiratory distress, abdominal pain, nausea/ vomiting/diarrhea Physical Exam 2 Vital Signs (Past 24 Hours): Last Vital Signs Temp 36.3 C L 04/24/18 15:36 Pulse 50 L 04/24/18 15:36 Resp 20 04/24/18 15:36 BP 125/62 04/24/18 15:36 Pulse Ox 96 04/24/18 15:36 Constitutional: WD/WN, vitals as above Eyes: PERRL, conjunctivae normal, anicteric sclerae Neck: trachea midline, no thyromegaly Respiratory: normal respiratory effort, lungs clear to auscultation Cardiovascular: RRR, no murmur, no edema Gastrointestinal (Abdomen): normal bowel sounds, soft, nontender, no hepatosplenomegaly Skin: Hyperpigmentation of bilateral lower extremity consistent with venous stasis. Ulceration on the pad of the right first digit of the right lower extremity. Erythema of the left foot is improved today. Resident Activity Tracking Resident Involvement: Resident Care Provided Care Provided: [facility] _ (1) Atrial flutter Atrial flutter type: unspecified Qualified Code(s): I48.92 - Unspecified atrial flutter (2) Cellulitis Laterality: unspecified laterality Site of cellulitis: extremity Site of cellulitis of extremity: lower extremity Site of cellulitis of trunk: Qualified Code(s): L03.119 - Cellulitis of unspecified part of limb
--- NOTE | 2018-04-24 16:30 | Infectious Disease Progress Nt ---
Date of Service April 24, 2018 Assessment & Plan (1) Chronic osteomyelitis of toe of left foot: Patient with chronic osteomyelitis left great toe, likely MRSA. We will continue current antibiotics for now, likely de-escalate to daptomycin alone tomorrow if no gram negatives identified. Will likely require prolonged IV antibiotics. Will discuss with all involved. Will follow. (2) MRSA (methicillin resistant Staphylococcus aureus) infection: Subjective Patient seen in follow-up for osteomyelitis. Better, less fatigued fever chills. Tolerating antibiotic without apparent difficulty Review of Systems All systems reviewed & are unremarkable except as noted in HPI & below Physical Exam Vital Signs (Past 24 Hours): Last Vital Signs Temp 36.3 C L 04/24/18 15:36 Pulse 50 L 04/24/18 15:36 Resp 20 04/24/18 15:36 BP 125/62 04/24/18 15:36 Pulse Ox 96 04/24/18 15:36 Constitutional: WD/WN, vitals as above comfortable; no acute distress Eyes: PERRL, conjunctivae normal, anicteric sclerae ENMT: external ear and nose normal, oropharynx normal Neck: trachea midline, no thyromegaly neck nontender Respiratory: normal respiratory effort, lungs clear to auscultation normal percussion; no respiratory distress Cardiovascular: Rate/Rhythm: regular rate and regular rhythm Heart Sounds: normal S1 and normal S2; no gallop, no murmur and no cardiac rub Gastrointestinal (Abdomen): normal bowel sounds, soft, nontender, no hepatosplenomegaly Musculoskeletal: no cyanosis or clubbing, extremities motor strength 5/5 No spinal tenderness, no joint swelling or erythema Skin: + ulcer; no rashes Slight decrease in erythema left great toe and left foot Neurologic: moves all extremities and awake; no focal motor deficits Motor/Sensory: no sensory deficit Psychiatric: A+Ox3, euthymic affect Lymphatic: no cervical or axillary lymphadenopathy no inguinal lymphadenopathy Results & Data Laboratory Results Short CBC 04/24/18 Range/Units 06:12 WBC 3.71 L (4.8-10.8) K/uL Hgb 12.9 L (14.0-18.0) g/dL Hct 39.4 L (42-52) % Plt Count 188 (130-400) K/uL BMP 04/24/18 06:12 Sodium 141 Potassium 3.8 Chloride 107 Carbon Dioxide 30 BUN 16 Creatinine 0.87 Glucose 90 Calcium 9.0 Diagnostic Findings Microbiology 04/23/18 Unknown Foot Gram Stain - Final 04/23/18 Unknown Foot Wound Culture - Preliminary Staphylococcus species 04/22/18 12:00 Blood Blood Culture - Preliminary No growth to date. 04/22/18 12:00 Blood Blood Culture - Preliminary No growth to date.
[2018-04-25 07:06] LABS: Basophils # (auto) 0.01 K/uL (0-0.2); Basophils % (auto) 0.3 %; Eosinophils # (auto) 0.15 K/uL (0-0.5); Eosinophils % (auto) 3.9 %; Hematocrit (blood only) 40.8 % (42-52); Hemoglobin 13.3 g/dL (14.0-18.0); Lymphocytes # (auto) 0.83 K/uL (1.2-3.4); Lymphocytes % (auto) 21.4 %; Mean Corpuscular Hgb Conc 32.6 g/dL (32-36); Mean Corpuscular Volume 88.1 fL (80-100); Mean Platelet Volume 9.2 fL (7.4-10.4); Monocytes # (auto) 0.46 K/uL (0.11-0.59); Monocytes % (auto) 11.9 %; Neutrophils # (auto) 2.42 K/uL (1.4-6.5); Neutrophils % (auto) 62.5 %; Platelet Count 200 K/uL (130-400); RDW Coefficient of Variation 16.6 % (11.5-14.5); RDW Standard Deviation 53.7 fL (36.4-46.3); Red Blood Count 4.63 M/uL (4.7-6.1); White Blood Count 3.87 K/uL (4.8-10.8)
[2018-04-25 07:35] LABS: Calcium 8.8 mg/dl (8.5-10.1); Creatinine Clr Calc Pharmacy 65.8 ml/min; Est GFR (African American) 91.3; Est GFR (Non-African American) 78.8; Potassium 3.9 mmol/L (3.5-5.1)
[2018-04-25] MEDS: HEPARIN SOD 5,000 UNIT/0.5 ML VIAL SQ SCH ×2 (08:23→20:52)
[2018-04-25] MEDS: VANCOMYCIN HCL 1,250 MG in SODIUM CHLORIDE 0.9% 250 ML IV SCH ×2 (08:26→20:51)
[2018-04-25] MEDS: FUROSEMIDE 20 MG TAB PO SCH (08:27)
[2018-04-25] MEDS: CLOPIDOGREL BISULFATE 75 MG TAB PO SCH (08:27)
--- NOTE | 2018-04-25 11:21 | Infectious Disease Progress Nt ---
Date of Service April 25, 2018 Assessment & Plan (1) Chronic osteomyelitis of toe of left foot: Patient with chronic osteomyelitis left great toe with MRSA. Patient will be continued on IV Vanco for now, but likely will need to be changed to daptomycin to allow outpatient therapy as will require 6 weeks of antibiotics. Will discuss with all involved. Will follow. (2) MRSA (methicillin resistant Staphylococcus aureus) infection: Subjective Patient seen in follow-up for osteomyelitis. States he is feeling better, offers no new specific complaints. No pain in foot currently. Remains afebrile. Cultures growing staph. Review of Systems All systems reviewed & are unremarkable except as noted in HPI & below Physical Exam Vital Signs (Past 24 Hours): Last Vital Signs Temp 37.3 C 04/25/18 08:00 Pulse 56 L 04/25/18 08:00 Resp 18 04/25/18 08:00 BP 148/83 H 04/25/18 08:00 Pulse Ox 95 04/25/18 08:00 Constitutional: WD/WN, vitals as above comfortable; no acute distress Eyes: PERRL, conjunctivae normal, anicteric sclerae ENMT: external ear and nose normal, oropharynx normal Neck: trachea midline, no thyromegaly neck nontender Respiratory: normal respiratory effort, lungs clear to auscultation normal percussion; no respiratory distress and does not use accessory muscles Cardiovascular: Rate/Rhythm: regular rate and regular rhythm Heart Sounds: normal S1 and normal S2; no gallop, no murmur and no cardiac rub Vessels: normal peripheral pulses; no JVD Gastrointestinal (Abdomen): normal bowel sounds, soft, nontender, no hepatosplenomegaly Musculoskeletal: no cyanosis or clubbing, extremities motor strength 5/5 Spine: thoracic spine normal to inspection and lumbar spine normal to inspection; no cervical spinal tenderness Skin: no rashes, warm and dry normal turgor and + ulcer; no rashes Erythema right foot about the same Neurologic: patellar DTR's 2+ bilat, sensation intact moves all extremities and awake; no focal motor deficits Motor/Sensory: no sensory deficit Psychiatric: A+Ox3, euthymic affect Orientation: cooperative Lymphatic: no cervical or axillary lymphadenopathy no inguinal lymphadenopathy Results & Data Laboratory Results Short CBC 04/25/18 Range/Units 06:51 WBC 3.87 L (4.8-10.8) K/uL Hgb 13.3 L (14.0-18.0) g/dL Hct 40.8 L (42-52) % Plt Count 200 (130-400) K/uL BMP 04/25/18 06:51 Sodium 139 Potassium 3.9 Chloride 107 Carbon Dioxide 29 BUN 15 Creatinine 0.81 Glucose 94 Calcium 8.8 Diagnostic Findings Microbiology 04/23/18 Unknown Foot Gram Stain - Final 04/23/18 Unknown Foot Wound Culture - Final Staph aureus MRSA 04/22/18 12:00 Blood Blood Culture - Preliminary No growth to date. 04/22/18 12:00 Blood Blood Culture - Preliminary No growth to date.
--- NOTE | 2018-04-25 16:03 | Family Medicine Progress Note ---
Date of Service April 25, 2018 Assessment & Plan (1) Chronic osteomyelitis of toe of left foot: 87-year-old male with a history of hypertension, CHF, TIA presents with weakness in the setting of recurrent lower extremity cellulitis/chronic osteo- mellitus of the left great toe Osteomyelitis of left great toe ID following, appreciate recommendationscontinuing IV Vanco No growth to date with blood cultures. Wound cultures grew MRSAID is recommending 6 weeks of antibiotic therapy, daptomycin We will coordinate care with case management and will discuss need for long- term IV access Continue wound care Continue daily p.o. Lasix for chronic lower extremity edema PT/OT Atrial fibrillation with low rates Appears that patient's metoprolol was held following last hospitalization as the patient was experiencing sinus pauses Currently not a candidate for a pacemaker Currently asymptomatic. We will continue to follow rates closely in the hospital Has had recent history of falls but more likely related to weakness, dec onditioning, deformity of toes/chronic osteomyelitis Anticoagulation has been held secondary to concern for falls/head trauma CAD Continue statin, continue Plavix, continue to hold beta-jimy as described above TIA Continue Plavix Chronic diastolic heart failure Continue Lasix 20 mg Hypertension Continue furosemide DVT prophylaxis Heparin 5000 3 times daily (2) HLD (hyperlipidemia): (3) Pressure ulcer of toe of left foot, stage 2: (4) Osteomyelitis: (5) Rheumatoid arthritis: (6) Cellulitis: (7) Atrial flutter: Supervising Physician Co-Signing Physician Notes I saw the patient concurrent with the resident physician and confirmed pickard portions of the history and physical exam. I agree with the documentation including impression and plan as noted above. Patient remains afebrile. Erythema of the lower extremities is improved. The patient is seen ambulating in the hallway with physical therapy (walker) as well. IMPRESSION Cellulitis, bilateral lower extremities Osteomyelitis PLAN Appreciate infectious disease consult Will discuss with case management long-term IV access and potential to have this administered at the [facility] Physical therapy and occupational therapy Subjective 87-year-old male with a history of hypertension, CHF, TIA presents with weakness in the setting of recurrent lower extremity cellulitis. Doing well this morning. Patient discussed that he would like to go back to the [facility] or [facility] to continue antibiotic therapy. Prefers this over inpatient rehab facility. Review of systems; patient denies fevers, chills, night sweats, chest pain, palpitations, syncope, cough, respiratory distress, abdominal pain, nausea/vomiting/diarrhea Physical Exam Vital Signs (Past 24 Hours): Last Vital Signs Temp 36.8 C 04/25/18 15:12 Pulse 71 04/25/18 15:12 Resp 22 04/25/18 15:12 BP 153/87 H 04/25/18 15:12 Pulse Ox 96 04/25/18 15:12 Constitutional: WD/WN, vitals as above Eyes: PERRL, conjunctivae normal, anicteric sclerae Neck: trachea midline, no thyromegaly Respiratory: normal respiratory effort, lungs clear to auscultation Cardiovascular: RRR, no murmur, no edema Gastrointestinal (Abdomen): normal bowel sounds, soft, nontender, no hepatosplenomegaly Skin: Hyperpigmentation of bilateral lower extremity consistent with venous stasis. Ulceration on the pad of the right first digit of the right lower extremity. Erythema and warmth of the left foot continues to improve Results & Data Laboratory Results Laboratory Last Values WBC 3.87 K/uL (4.8-10.8) L 04/25/18 06:51 RBC 4.63 M/uL (4.7-6.1) L 04/25/18 06:51 Hgb 13.3 g/dL (14.0-18.0) L 04/25/18 06:51 Hct 40.8 % (42-52) L 04/25/18 06:51 MCV 88.1 fL (80-100) 04/25/18 06:51 MCH 28.7 pg (25-34) 04/25/18 06:51 MCHC 32.6 g/dL (32-36) 04/25/18 06:51 RDW Std Deviation 53.7 fL (36.4-46.3) H 04/25/18 06:51 RDW Coeff of Yusef 16.6 % (11.5-14.5) H 04/25/18 06:51 Plt Count 200 K/uL (130-400) 04/25/18 06:51 MPV 9.2 fL (7.4-10.4) 04/25/18 06:51 Immature Gran % (Auto) 0.0 % 04/25/18 06:51 Neut % (Auto) 62.5 % 04/25/18 06:51 Lymph % (Auto) 21.4 % 04/25/18 06:51 [place] % (Auto) 11.9 % 04/25/18 06:51 Eos % (Auto) 3.9 % 04/25/18 06:51 Baso % (Auto) 0.3 % 04/25/18 06:51 Immature Gran # (Auto) 0.00 K/uL (0.00-0.02) 04/25/18 06:51 Neut # (Auto) 2.42 K/uL (1.4-6.5) 04/25/18 06:51 Lymph # (Auto) 0.83 K/uL (1.2-3.4) L 04/25/18 06:51 [place] # (Auto) 0.46 K/uL (0.11-0.59) 04/25/18 06:51 Eos # (Auto) 0.15 K/uL (0-0.5) 04/25/18 06:51 Baso # (Auto) 0.01 K/uL (0-0.2) 04/25/18 06:51 ESR 8 mm/hr (0-14) 04/22/18 12:05 PT 11.1 Seconds (9.0-12.0) 04/22/18 04:10 INR 1.1 (0.9-1.1) 04/22/18 04:10 Sodium 139 mmol/L (136-145) 04/25/18 06:51 Potassium 3.9 mmol/L (3.5-5.1) 04/25/18 06:51 Chloride 107 mmol/L (98-107) 04/25/18 06:51 Carbon Dioxide 29 mmol/L (21-32) 04/25/18 06:51 Anion Gap 3.0 (3-11) 04/25/18 06:51 BUN 15 mg/dl (7-18) 04/25/18 06:51 Creatinine 0.81 mg/dl (0.6-1.4) 04/25/18 06:51 Est Cr Clr Drug Dosing 65.8 ml/min 04/25/18 06:51 Est GFR ( Amer) 91.3 04/25/18 06:51 Est GFR (Non-Af Amer) 78.8 04/25/18 06:51 BUN/Creatinine Ratio 19.0 (10-20) 04/25/18 06:51 Glucose 94 mg/dl (70-99) 04/25/18 06:51 POC Glucose 88 (70-99) 04/22/18 16:36 Lactate 1.4 mmol/L (0.4-2.0) 04/22/18 12:11 Calcium 8.8 mg/dl (8.5-10.1) 04/25/18 06:51 Total Bilirubin 1.5 mg/dl (0.2-1) H 04/22/18 04:10 AST 16 U/L (15-37) 04/22/18 04:10 ALT 22 U/L (12-78) 04/22/18 04:10 Alkaline Phosphatase 60 U/L (45-117) 04/22/18 04:10 Total Creatine Kinase 38 U/L (39-308) L 04/22/18 04:10 CK-MB (CK-2) 1.9 ng/ml (0.5-3.6) 04/22/18 04:10 CK/CKMB % Calc 5.0 (0-3.0) H 04/22/18 04:10 Troponin I < 0.015 ng/ml (0-0.045) 04/22/18 04:10 C-Reactive Protein 4.72 mg/dl (0-0.29) H 04/22/18 12:05 Total Protein 6.7 gm/dl (6.4-8.2) 04/22/18 04:10 Albumin 3.3 gm/dl (3.4-5.0) L 04/22/18 04:10 Globulin 3.4 gm/dl (2.5-4.0) 04/22/18 04:10 Albumin/Globulin Ratio 1.0 (0.9-2) 04/22/18 04:10 Procalcitonin < 0.05 ng/ml (0-0.5) 04/22/18 12:05 TSH 0.798 uIu/ml (0.300-4.500) 04/22/18 04:10 Urine Color Yellow 04/22/18 08:45 Urine Appearance Clear (Clear) 04/22/18 08:45 Urine pH 7.0 (4.5-7.5) 04/22/18 08:45 Ur Specific [place] 1.025 (1.000-1.030) 04/22/18 08:45 Urine Protein Negative (Negative) 04/22/18 08:45 Urine Glucose (UA) Negative (Negative) 04/22/18 08:45 Urine Ketones Trace (Negative) H 04/22/18 08:45 Urine Blood Negative (Negative) 04/22/18 08:45 Urine Nitrite Negative (Negative) 04/22/18 08:45 Urine Bilirubin Negative (Negative) 04/22/18 08:45 Urine Urobilinogen Negative (Negative) 04/22/18 08:45 Ur Leukocyte Esterase Negative (Negative) 04/22/18 08:45 Vancomycin Trough 18.4 mcg/ml (See Comment) 04/24/18 19:51 Resident Activity Tracking Resident Involvement: Resident Care Provided Care Provided: Adult Hospital Medicine (1) Atrial flutter Atrial flutter type: unspecified Qualified Code(s): I48.92 - Unspecified atrial flutter (2) Cellulitis Laterality: unspecified laterality Site of cellulitis: extremity Site of cellulitis of extremity: lower extremity Qualified Code(s): L03.119 - Cellulitis of unspecified part of limb
[2018-04-26] MEDS: VANCOMYCIN HCL 1,250 MG in SODIUM CHLORIDE 0.9% 250 ML IV SCH ×2 (07:57→20:46)
[2018-04-26] MEDS: CLOPIDOGREL BISULFATE 75 MG TAB PO SCH (08:01)
[2018-04-26] MEDS: FUROSEMIDE 20 MG TAB PO SCH (08:02)
[2018-04-26] MEDS: HEPARIN SOD 5,000 UNIT/0.5 ML VIAL SQ SCH ×2 (08:02→20:45)
--- NOTE | 2018-04-26 16:24 | Family Medicine Progress Note ---
Date of Service April 26, 2018 Assessment & Plan (1) Chronic osteomyelitis of toe of left foot: 87-year-old male with a history of hypertension, CHF, TIA presents with weakness in the setting of recurrent lower extremity cellulitis/chronic osteo- mellitus of the left great toe Osteomyelitis of left great toeMRSA positive wound cultures ID following, appreciate recommendationscontinuing IV Vanco until discharge Discussed with pharmacy and ID regarding use of Dalvance versus daptomycin. Plan is to discharge the patient back home. Currently working on approval for Dalvance, alternative to 6 weeks of IV antibiotic treatment. This medication will only require the patient to come to the [facility] for treatments. He will receive treatments on day 1 and day 8. Continue wound care Continue daily p.o. Lasix for chronic lower extremity edema PT/OT Atrial fibrillation with low rates Appears that patient's metoprolol was held following last hospitalization as the patient was experiencing sinus pauses Currently not a candidate for a pacemaker Currently asymptomatic. We will continue to follow rates closely in the hospital Has had recent history of falls but more likely related to weakness, deconditioning, deformity of toes/chronic osteomyelitis Anticoagulation has been held secondary to concern for falls/head trauma CAD Continue statin, continue Plavix, continue to hold beta-jimy as described above TIA Continue Plavix Chronic diastolic heart failure Continue Lasix 20 mg Hypertension Continue furosemide DVT prophylaxis Heparin 5000 3 times daily (2) HLD (hyperlipidemia): (3) Pressure ulcer of toe of left foot, stage 2: (4) Osteomyelitis: (5) Rheumatoid arthritis: (6) Cellulitis: (7) Atrial flutter: Supervising Physician Co-Signing Physician Notes I saw the patient concurrent with the resident physician and confirmed pickard portions of the history and physical exam. I agree with the documentation in the resident's note including impression and plan. Patient remains afebrile. He complains of a generalized weakness compared to his baseline but realize this is likely the result of being hospitalized. Erythema of the lower extremities is improved. The patient is seen ambulating in the hallway with physical therapy (walker) as well. IMPRESSION Cellulitis, bilateral lower extremities Osteomyelitis PLAN Appreciate infectious disease consult Dalvance versus daptomycin, largely based on what will be approved by his insurance. Once this is settled could likely [facility] Even if the Dalvance is approved he would likely benefit from a short stay [facility] the [facility] for physical [facility] and continued monitoring of his lower extremity cellulitis. Subjective 87-year-old male with a history of hypertension, CHF, TIA presents with weakness in the setting of recurrent lower extremity cellulitis. Doing well this morning, although he describes feeling fatigued. He has been working on conditioning in the hospital as much as he can. He states that he has been practicing standing and sitting with the assistance of his walker. Review of systems; patient denies fevers, chills, night sweats, chest pain, palpitations, syncope, cough, respiratory distress, abdominal pain, nausea/vomiting/diarrhea Physical Exam Vital Signs (Past 24 Hours): Last Vital Signs Temp 36.5 C 04/26/18 15:04 Pulse 51 L 04/26/18 15:04 Resp 18 04/26/18 15:04 BP 148/88 H 04/26/18 15:04 Pulse Ox 94 04/26/18 15:04 Constitutional: WD/WN, vitals as above Eyes: PERRL, conjunctivae normal, anicteric sclerae Neck: trachea midline, no thyromegaly Respiratory: normal respiratory effort, lungs clear to auscultation Cardiovascular: RRR, no murmur, no edema Gastrointestinal (Abdomen): normal bowel sounds, soft, nontender, no hepatosplenomegaly Skin: Hyperpigmentation of bilateral lower extremity consistent with venous stasis. Ulceration on the pad of the right first digit of the right lower ex tremity. Erythema and warmth of the left foot continues to improve Results & Data Laboratory Results Laboratory Last Values WBC 3.87 K/uL (4.8-10.8) L 04/25/18 06:51 RBC 4.63 M/uL (4.7-6.1) L 04/25/18 06:51 Hgb 13.3 g/dL (14.0-18.0) L 04/25/18 06:51 Hct 40.8 % (42-52) L 04/25/18 06:51 MCV 88.1 fL (80-100) 04/25/18 06:51 MCH 28.7 pg (25-34) 04/25/18 06:51 MCHC 32.6 g/dL (32-36) 04/25/18 06:51 RDW Std Deviation 53.7 fL (36.4-46.3) H 04/25/18 06:51 RDW Coeff of Yusef 16.6 % (11.5-14.5) H 04/25/18 06:51 Plt Count 200 K/uL (130-400) 04/25/18 06:51 MPV 9.2 fL (7.4-10.4) 04/25/18 06:51 Immature Gran % (Auto) 0.0 % 04/25/18 06:51 Neut % (Auto) 62.5 % 04/25/18 06:51 Lymph % (Auto) 21.4 % 04/25/18 06:51 [place] % (Auto) 11.9 % 04/25/18 06:51 Eos % (Auto) 3.9 % 04/25/18 06:51 Baso % (Auto) 0.3 % 04/25/18 06:51 Immature Gran # (Auto) 0.00 K/uL (0.00-0.02) 04/25/18 06:51 Neut # (Auto) 2.42 K/uL (1.4-6.5) 04/25/18 06:51 Lymph # (Auto) 0.83 K/uL (1.2-3.4) L 04/25/18 06:51 [place] # (Auto) 0.46 K/uL (0.11-0.59) 04/25/18 06:51 Eos # (Auto) 0.15 K/uL (0-0.5) 04/25/18 06:51 Baso # (Auto) 0.01 K/uL (0-0.2) 04/25/18 06:51 ESR 8 mm/hr (0-14) 04/22/18 12:05 PT 11.1 Seconds (9.0-12.0) 04/22/18 04:10 INR 1.1 (0.9-1.1) 04/22/18 04:10 Sodium 139 mmol/L (136-145) 04/25/18 06:51 Potassium 3.9 mmol/L (3.5-5.1) 04/25/18 06:51 Chloride 107 mmol/L (98-107) 04/25/18 06:51 Carbon Dioxide 29 mmol/L (21-32) 04/25/18 06:51 Anion Gap 3.0 (3-11) 04/25/18 06:51 BUN 15 mg/dl (7-18) 04/25/18 06:51 Creatinine 0.81 mg/dl (0.6-1.4) 04/25/18 06:51 Est Cr Clr Drug Dosing 65.8 ml/min 04/25/18 06:51 Est GFR ( Amer) 91.3 04/25/18 06:51 Est GFR (Non-Af Amer) 78.8 04/25/18 06:51 BUN/Creatinine Ratio 19.0 (10-20) 04/25/18 06:51 Glucose 94 mg/dl (70-99) 04/25/18 06:51 POC Glucose 88 (70-99) 04/22/18 16:36 Lactate 1.4 mmol/L (0.4-2.0) 04/22/18 12:11 Calcium 8.8 mg/dl (8.5-10.1) 04/25/18 06:51 Total Bilirubin 1.5 mg/dl (0.2-1) H 04/22/18 04:10 AST 16 U/L (15-37) 04/22/18 04:10 ALT 22 U/L (12-78) 04/22/18 04:10 Alkaline Phosphatase 60 U/L (45-117) 04/22/18 04:10 Total Creatine Kinase 38 U/L (39-308) L 04/22/18 04:10 CK-MB (CK-2) 1.9 ng/ml (0.5-3.6) 04/22/18 04:10 CK/CKMB % Calc 5.0 (0-3.0) H 04/22/18 04:10 Troponin I < 0.015 ng/ml (0-0.045) 04/22/18 04:10 C-Reactive Protein 4.72 mg/dl (0-0.29) H 04/22/18 12:05 Total Protein 6.7 gm/dl (6.4-8.2) 04/22/18 04:10 Albumin 3.3 gm/dl (3.4-5.0) L 04/22/18 04:10 Globulin 3.4 gm/dl (2.5-4.0) 04/22/18 04:10 Albumin/Globulin Ratio 1.0 (0.9-2) 04/22/18 04:10 Procalcitonin < 0.05 ng/ml (0-0.5) 04/22/18 12:05 TSH 0.798 uIu/ml (0.300-4.500) 04/22/18 04:10 Urine Color Yellow 04/22/18 08:45 Urine Appearance Clear (Clear) 04/22/18 08:45 Urine pH 7.0 (4.5-7.5) 04/22/18 08:45 Ur Specific [place] 1.025 (1.000-1.030) 04/22/18 08:45 Urine Protein Negative (Negative) 04/22/18 08:45 Urine Glucose (UA) Negative (Negative) 04/22/18 08:45 Urine Ketones Trace (Negative) H 04/22/18 08:45 Urine Blood Negative (Negative) 04/22/18 08:45 Urine Nitrite Negative (Negative) 04/22/18 08:45 Urine Bilirubin Negative (Negative) 04/22/18 08:45 Urine Urobilinogen Negative (Negative) 04/22/18 08:45 Ur Leukocyte Esterase Negative (Negative) 04/22/18 08:45 Vancomycin Trough 18.4 mcg/ml (See Comment) 04/24/18 19:51 Resident Activity Tracking Resident Involvement: Resident Care Provided Care Provided: Adult Hospital Medicine (1) Atrial flutter Atrial flutter type: unspecified Qualified Code(s): I48.92 - Unspecified atrial flutter (2) Cellulitis Laterality: unspecified laterality Site of cellulitis: extremity Site of cellulitis of extremity: lower extremity Qualified Code(s): L03.119 - Cellulitis of unspecified part of limb
[2018-04-27] MEDS: VANCOMYCIN HCL 1,250 MG in SODIUM CHLORIDE 0.9% 250 ML IV SCH ×2 (07:43→20:36)
[2018-04-27] MEDS: CLOPIDOGREL BISULFATE 75 MG TAB PO SCH (07:45)
[2018-04-27] MEDS: FUROSEMIDE 20 MG TAB PO SCH (07:45)
[2018-04-27] MEDS: HEPARIN SOD 5,000 UNIT/0.5 ML VIAL SQ SCH ×2 (07:46→20:36)
--- NOTE | 2018-04-27 16:14 | Infectious Disease Progress Nt ---
Date of Service April 27, 2018 Assessment & Plan (1) Chronic osteomyelitis of toe of left foot: Patient with chronic osteomyelitis left great toe with MRSA. Patient will be continued on IV Vanco for now, arranging for approval for dalbavancin to allow easier outpatient therapy. Will follow.. (2) MRSA (methicillin resistant Staphylococcus aureus) infection: Subjective Patient seen in follow-up for osteomyelitis. States he is feeling better, offers no new specific complaints. No pain in foot currently. Remains afebrile. Cultures growing MRSA. Review of Systems All systems reviewed & are unremarkable except as noted in HPI & below Physical Exam Vital Signs (Past 24 Hours): Last Vital Signs Temp 37 C 04/27/18 15:28 Pulse 43 L 04/27/18 15:28 Resp 20 04/27/18 15:28 BP 124/62 04/27/18 15:28 Pulse Ox 95 04/27/18 15:28 Constitutional: WD/WN, vitals as above comfortable; no acute distress Eyes: PERRL, conjunctivae normal, anicteric sclerae ENMT: external ear and nose normal, oropharynx normal Neck: trachea midline, no thyromegaly neck nontender Respiratory: normal respiratory effort, lungs clear to auscultation normal percussion; no respiratory distress and does not use accessory muscles Cardiovascular: Rate/Rhythm: regular rate and regular rhythm Heart Sounds: normal S1 and normal S2; no gallop, no murmur and no cardiac rub Vessels: normal peripheral pulses; no JVD Gastrointestinal (Abdomen): normal bowel sounds, soft, nontender, no hepatosplenomegaly Musculoskeletal: no cyanosis or clubbing, extremities motor strength 5/5 Spine: thoracic spine normal to inspection and lumbar spine normal to inspection; no cervical spinal tenderness Skin: no rashes, warm and dry normal turgor and + ulcer (Left great toe unchanged); no rashes Neurologic: patellar DTR's 2+ bilat, sensation intact moves all extremities and awake; no focal motor deficits Motor/Sensory: no sensory deficit Psychiatric: A+Ox3, euthymic affect Orientation: cooperative Lymphatic: no cervical or axillary lymphadenopathy no inguinal lymphad enopathy Results & Data Diagnostic Findings Microbiology 04/23/18 Unknown Foot Gram Stain - Final 04/23/18 Unknown Foot Wound Culture - Final Staph aureus MRSA 04/22/18 12:00 Blood Blood Culture - Preliminary No growth to date. 04/22/18 12:00 Blood Blood Culture - Preliminary No growth to date.
--- NOTE | 2018-04-27 17:51 | Family Medicine Progress Note ---
Date of Service April 27, 2018 Assessment & Plan (1) Chronic osteomyelitis of toe of left foot: 87-year-old male with a history of hypertension, CHF, TIA presents with weakness in the setting of recurrent lower extremity cellulitis/chronic osteo- mellitus of the left great toe Osteomyelitis of left great toeMRSA positive wound cultures ID following, appreciate recommendationscontinuing IV Vanco until discharge Discussed with pharmacy and ID regarding use of Dalvance versus daptomycin. Plan is to discharge patient home on Dalvance, currently in the process of being approved, will likely know on Monday or Monday Continue wound care Continue daily p.o. Lasix for chronic lower extremity edema PT/OT Atrial fibrillation with low rates Appears that patient's metoprolol was held following last hospitalization as the patient was experiencing sinus pauses Currently not a candidate for a pacemaker Currently asymptomatic. We will continue to follow rates closely in the hospital Has had recent history of falls but more likely related to weakness, deconditioning, deformity of toes/chronic osteomyelitis Anticoagulation has been held secondary to concern for falls/head trauma CAD Continue statin, continue Plavix, continue to hold beta-jimy as described above TIA Continue Plavix Chronic diastolic heart failure Continue Lasix 20 mg Hypertension Continue furosemide DVT prophylaxis Heparin 5000 3 times daily (2) HLD (hyperlipidemia): (3) Pressure ulcer of toe of left foot, stage 2: (4) Osteomyelitis: (5) Rheumatoid arthritis: (6) Cellulitis: (7) Atrial flutter: Supervising Physician Co-Signing Physician Notes Patient seen and examined with Dr. Granda. Agree with history, physical exam findings, assessment and plan of care as documented by Dr. Granda. In brief, Mr. Mason is an 87 year old male with hx of HTN, CHF, TIA admitted with chronic osteomyelitis of the left great toe. wound is probing to the bone and cultures growing MRSA. On vanc now, trying to get dalvance approved as an outpatient and set up for infusion in [facility]. Afib is rate controlled, and now slightly jessica. holding beta jimy. No AC due to hx of falls. Other chronic issues stable. Dispo: pending approval of dalvance and appropriate outpatient abx regimen arrangements. Subjective 87-year-old male with a history of hypertension, CHF, TIA presents with weakness in the setting of recurrent lower extremity cellulitis. Doing well this morning, denies pain in his feet. Continues to work on conditioning and practicing moving from seated to standing position. Is tolerating regular diet. Review of systems; patient denies fevers, chills, night sweats, chest pain, palpitations, syncope, cough, respiratory distress, abdominal pain, nausea/vomiting/diarrhea Physical Exam Vital Signs (Past 24 Hours): Last Vital Signs Temp 37 C 04/27/18 15:28 Pulse 43 L 04/27/18 15:28 Resp 20 04/27/18 15:28 BP 124/62 04/27/18 15:28 Pulse Ox 95 04/27/18 15:28 Constitutional: WD/WN, vitals as above Eyes: PERRL, conjunctivae normal, anicteric sclerae Neck: trachea midline, no thyromegaly Respiratory: normal respiratory effort, lungs clear to auscultation Cardiovascular: RRR, no murmur, no edema Gastrointestinal (Abdomen): normal bowel sounds, soft, nontender, no hepatosplenomegaly Skin: Hyperpigmentation of bilateral lower extremity consistent with venous stasis. Ulceration on the pad of the right and left first digit of the right lower extremity. Dressing is clean, intact. Deformation of the first digit of bilateral lower extremities. Erythema and warmth of the left foot improved Results & Data Laboratory Results Laboratory Last Values WBC 3.87 K/uL (4.8-10.8) L 04/25/18 06:51 RBC 4.63 M/uL (4.7-6.1) L 04/25/18 06:51 Hgb 13.3 g/dL (14.0-18.0) L 04/25/18 06:51 Hct 40.8 % (42-52) L 04/25/18 06:51 MCV 88.1 fL (80-100) 04/25/18 06:51 MCH 28.7 pg (25-34) 04/25/18 06:51 MCHC 32.6 g/dL (32-36) 04/25/18 06:51 RDW Std Deviation 53.7 fL (36.4-46.3) H 04/25/18 06:51 RDW Coeff of Yusef 16.6 % (11.5-14.5) H 04/25/18 06:51 Plt Count 200 K/uL (130-400) 04/25/18 06:51 MPV 9.2 fL (7.4-10.4) 04/25/18 06:51 Immature Gran % (Auto) 0.0 % 04/25/18 06:51 Neut % (Auto) 62.5 % 04/25/18 06:51 Lymph % (Auto) 21.4 % 04/25/18 06:51 [place] % (Auto) 11.9 % 04/25/18 06:51 Eos % (Auto) 3.9 % 04/25/18 06:51 Baso % (Auto) 0.3 % 04/25/18 06:51 Immature Gran # (Auto) 0.00 K/uL (0.00-0.02) 04/25/18 06:51 Neut # (Auto) 2.42 K/uL (1.4-6.5) 04/25/18 06:51 Lymph # (Auto) 0.83 K/uL (1.2-3.4) L 04/25/18 06:51 [place] # (Auto) 0.46 K/uL (0.11-0.59) 04/25/18 06:51 Eos # (Auto) 0.15 K/uL (0-0.5) 04/25/18 06:51 Baso # (Auto) 0.01 K/uL (0-0.2) 04/25/18 06:51 ESR 8 mm/hr (0-14) 04/22/18 12:05 PT 11.1 Seconds (9.0-12.0) 04/22/18 04:10 INR 1.1 (0.9-1.1) 04/22/18 04:10 Sodium 139 mmol/L (136-145) 04/25/18 06:51 Potassium 3.9 mmol/L (3.5-5.1) 04/25/18 06:51 Chloride 107 mmol/L (98-107) 04/25/18 06:51 Carbon Dioxide 29 mmol/L (21-32) 04/25/18 06:51 Anion Gap 3.0 (3-11) 04/25/18 06:51 BUN 15 mg/dl (7-18) 04/25/18 06:51 Creatinine 0.81 mg/dl (0.6-1.4) 04/25/18 06:51 Est Cr Clr Drug Dosing 65.8 ml/min 04/25/18 06:51 Est GFR ( Amer) 91.3 04/25/18 06:51 Est GFR (Non-Af Amer) 78.8 04/25/18 06:51 BUN/Creatinine Ratio 19.0 (10-20) 04/25/18 06:51 Glucose 94 mg/dl (70-99) 04/25/18 06:51 POC Glucose 88 (70-99) 04/22/18 16:36 Lactate 1.4 mmol/L (0.4-2.0) 04/22/18 12:11 Calcium 8.8 mg/dl (8.5-10.1) 04/25/18 06:51 Total Bilirubin 1.5 mg/dl (0.2-1) H 04/22/18 04:10 AST 16 U/L (15-37) 04/22/18 04:10 ALT 22 U/L (12-78) 04/22/18 04:10 Alkaline Phosphatase 60 U/L (45-117) 04/22/18 04:10 Total Creatine Kinase 38 U/L (39-308) L 04/22/18 04:10 CK-MB (CK-2) 1.9 ng/ml (0.5-3.6) 04/22/18 04:10 CK/CKMB % Calc 5.0 (0-3.0) H 04/22/18 04:10 Troponin I < 0.015 ng/ml (0-0.045) 04/22/18 04:10 C-Reactive Protein 4.72 mg/dl (0-0.29) H 04/22/18 12:05 Total Protein 6.7 gm/dl (6.4-8.2) 04/22/18 04:10 Albumin 3.3 gm/dl (3.4-5.0) L 04/22/18 04:10 Globulin 3.4 gm/dl (2.5-4.0) 04/22/18 04:10 Albumin/Globulin Ratio 1.0 (0.9-2) 04/22/18 04:10 Procalcitonin < 0.05 ng/ml (0-0.5) 04/22/18 12:05 TSH 0.798 uIu/ml (0.300-4.500) 04/22/18 04:10 Urine Color Yellow 04/22/18 08:45 Urine Appearance Clear (Clear) 04/22/18 08:45 Urine pH 7.0 (4.5-7.5) 04/22/18 08:45 Ur Specific [place] 1.025 (1.000-1.030) 04/22/18 08:45 Urine Protein Negative (Negative) 04/22/18 08:45 Urine Glucose (UA) Negative (Negative) 04/22/18 08:45 Urine Ketones Trace (Negative) H 04/22/18 08:45 Urine Blood Negative (Negative) 04/22/18 08:45 Urine Nitrite Negative (Negative) 04/22/18 08:45 Urine Bilirubin Negative (Negative) 04/22/18 08:45 Urine Urobilinogen Negative (Negative) 04/22/18 08:45 Ur Leukocyte Esterase Negative (Negative) 04/22/18 08:45 Vancomycin Trough 18.4 mcg/ml (See Comment) 04/24/18 19:51 Resident Activity Tracking Resident Involvement: Resident Care Provided Care Provided: Adult Hospital Medicine (1) Atrial flutter Atrial flutter type: unspecified Qualified Code(s): I48.92 - Unspecified atrial flutter (2) Cellulitis Laterality: unspecified laterality Site of cellulitis: extremity Site of cellulitis of extremity: lower extremity Qualified Code(s): L03.119 - Cellulitis of unspecified part of limb
[2018-04-28] MEDS: VANCOMYCIN HCL 1,250 MG in SODIUM CHLORIDE 0.9% 250 ML IV SCH (07:53)
[2018-04-28] MEDS: CLOPIDOGREL BISULFATE 75 MG TAB PO SCH (07:56)
[2018-04-28] MEDS: FUROSEMIDE 20 MG TAB PO SCH (07:56)
[2018-04-28] MEDS: HEPARIN SOD 5,000 UNIT/0.5 ML VIAL SQ SCH (07:58)
[2018-04-28 08:26] LABS: Creatinine Clr Calc Pharmacy 71.1 ml/min; Est GFR (African American) 94.3; Est GFR (Non-African American) 81.3
--- NOTE | 2018-04-28 11:26 | Discharge Summary ---
Date of Service April 28, 2018 Admission HPI Per Admitting Provider 87M with a PMHx of MRSA, Left Foot Osteo (confirmed 03/12/2018), cellulitis, Bacteremia (Pseudomonas), CHF, A Flutter, TIA presents with worsening foot pain and weakness for the past 48 hours. Pt lives at [place] and was recommended to go to the ER for his foot pain and weakness. Pt also fell in the past 24hours and has a history of falls. Pt states he fell because he was weak and his feet hurt. Pt reports his cellulitis that is chronic. Pt recalls being told he has osteomyelitis but denies being on daily Abx. Per chart review MRI of left foot shows osteomyelitis in Mar 12, 2018. Per Dr. Lizarraga's clinic note on Mar 20, pt was to trial Bactrim for chronic osteo and Follow up in 3 weeks. Unclear whether pt was taking Bactrim - pt doesn't think so. Pt confirms that he prefers not to have an amputation. Pt remembers somebody telling something about a low heart rate which is why he is no longer is on a beta jimy. ED visit from 02/25/19 shows pt was on Metoprolol. ROS: Pt denies fevers, denies chills. States that his feet feel hurt bilaterally. Pt denies chest pain, denies SOB, no diarrhea, no vomiting. No nausea. + bilateral foot pain. Pt states his pressure ulcer on his right buttocks has resolved. Admission Exam (Per Admitting) Constitutional Constitutional: well developed, well nourished and + well hydrated; no acute distress Eyes: PERRL, conjunctivae normal, anicteric sclerae Respiratory: normal respiratory effort, lungs clear to auscultation Cardiovascular: RRR, no murmur, no edema Vessels: normal peripheral pulses Extremities: + pedal edema; no calf tenderness Gastrointestinal (Abdomen): normal bowel sounds, soft, nontender, no hepatosplenomegaly Musculoskeletal: no cyanosis or clubbing, extremities motor strength 5/5 Skin: + erythema (erythema over more than half of the lower extremities, below the knees appears chronic venosu insufficiency,tender cellulitis appears to be limited to the feet bilaterally , pt has ulcerations over the 1st toes on his right and 1st stub on the right. Left foot is more warm than the right. ) Neurologic: patellar DTR's 2+ bilat, sensation intact Psychiatric: A+Ox3, euthymic affect Discharge Data Consultations 04/22/18 07:04 ED Decision to Admit Stat 04/23/18 13:48 Consult Infectious Diseases Routine Hospital Course (1) Chronic osteomyelitis of toe of left foot: 87-year-old male with a history of hypertension, CHF, TIA presents with weakness in the setting of recurrent lower extremity cellulitis/chronic osteo- mellitus of the left great toe Osteomyelitis of left great toeMRSA positive wound cultures MRI in Mar 12 2018 showed left foot chronic osteomylitis. Clinic note from Dr. Lizarraga's office Mar 20, rx'ed Bactrim trial for 3 weeks and then follow up in 3 weeks. unclear if patient was taking Bactrim -Repeat MRI today of L foot shows stable osteo on 04/22 -received Zosyn in the ED -broadened to IV Cefepime, Levaquin and Vancomycin on admission ID consulted, wound care consulted Blood cx's No growth, Wound cx positive for Staph Aureus Continued daily p.o. Lasix for chronic lower extremity edema Discharged with prescription for weekly Dalvance x 2 mos Atrial fibrillation with low rates metoprolol was held following last hospitalization as the patient was experiencing sinus pauses Currently not a candidate for a pacemaker Currently asymptomatic. We will continue to follow rates closely in the hospital Has had recent history of falls but more likely related to weakness, deconditioning, deformity of toes/chronic osteomyelitis Anticoagulation held secondary to concern for falls/head trauma CAD Continued Statin, continued Plavix, continue to hold beta-jimy as described above TIA Continued Plavix Chronic diastolic heart failure Continued Lasix 20 mg Hypertension Continued furosemide DVT prophylaxis Heparin 5000 3 times daily (2) HLD (hyperlipidemia): (3) Pressure ulcer of toe of left foot, stage 2: (4) Osteomyelitis: (5) Rheumatoid arthritis: (6) Cellulitis: (7) Atrial flutter: Supervising Physician Co-Signing Physician Notes Patient seen and examined with Dr. Bustillo. Agree with history, physical exam findings, assessment and plan of care as documented by Dr. Bustillo. In brief, Mr. Mason is an 87 year old male with hx of HTN, CHF, TIA admitted with chronic osteomyelitis of the left great toe. wound is probing to the bone and cultures growing MRSA. On vanc now, Dalvance approved. [facility] appt for Monday AM for first Afib is rate controlled. holding beta jimy for bradycardia, but can restart on discharge. No AC due to hx of falls. Other chronic issues stable. 35 minutes spent discharge planning. Resident Activity Tracking Resident Involvement: Resident Care Provided Care Provided: Adult Hospital Medicine
[2018-04-29] MEDS ORDERED: VANCOMYCIN HCL 1,250 MG in SODIUM CHLORIDE 0.9% 250 ML IV SCH (02:00)
== END 2018-04-28 15:45 | disposition home or self-care (01) | DRG 540 ==
LOC: ED 02:54 → SUATTDRO 09:03 → 4E 09:03

== ENCOUNTER 2018-06-03 08:57 | Inpatient (IN) ==
[2018-06-03 09:52] LABS: Basophils # (auto) 0.01 K/uL (0-0.2); Basophils % (auto) 0.2 %; Hematocrit (blood only) 42.2 % (42-52); Hemoglobin 14.2 g/dL (14.0-18.0); Immature Granulocytes # (auto) 0.02 K/uL (0.00-0.02); Immature Granulocytes % (auto) 0.3 %; Lymphocytes # (auto) 0.41 K/uL (1.2-3.4); Lymphocytes % (auto) 6.7 %; Mean Corpuscular Hgb Conc 33.6 g/dL (32-36); Mean Platelet Volume 9.1 fL (7.4-10.4); Monocytes # (auto) 0.85 K/uL (0.11-0.59); Monocytes % (auto) 13.8 %; Neutrophils # (auto) 4.86 K/uL (1.4-6.5); Platelet Count 159 K/uL (130-400); RDW Coefficient of Variation 16.5 % (11.5-14.5); RDW Standard Deviation 54.2 fL (36.4-46.3); Red Blood Count 4.74 M/uL (4.7-6.1); White Blood Count 6.15 K/uL (4.8-10.8)
[2018-06-03 10:08] LABS: Albumin Level 3.1 gm/dl (3.4-5.0); BUN Creatinine Ratio 17.7 (10-20); Calcium 8.5 mg/dl (8.5-10.1); Creatinine Clr Calc Pharmacy 62.6 ml/min; Est GFR (African American) 88.3; Est GFR (Non-African American) 76.2; Potassium 3.9 mmol/L (3.5-5.1)
--- NOTE | 2018-06-03 10:08 | XRay Report ---
XR chest 1V portable CLINICAL HISTORY: 87 years-old Male presenting with weakness. TECHNIQUE: PA view of the chest was obtained. COMPARISON: 04/22/2018. FINDINGS: Median sternotomy wires noted. Atherosclerosis of the aortic arch. Calcified right paratracheal lymph node suggested versus calcified granuloma. Cardiac silhouette top normal in size. Minimal linear irr egular opacities at the lung bases, left greater than right. Interval resolution of prior left basila r opacity. No other new focal opacity. No large effusion or pneumothorax. Degenerative changes of the thoracic spine. Advanced degenerative changes of the glenohumeral joints. Suspected underlying osteo penia. Upper abdomen normal. IMPRESSION: 1. Minimal basilar opacities likely atelectasis or scarring. No convincing evidence of acute cardiop ulmonary disease. 2. Resolution of prior left basilar infiltrate. Electronically signed by: Drew Ugalde M.D. 06/03/2018 10:07 AM
[2018-06-03] MEDS ORDERED: SODIUM CHLORIDE 0.9% 1000ML 250 ML IV ONE (10:09)
[2018-06-03 10:18] LABS: Albumin Globulin Ratio 0.9 (0.9-2); Bilirubin,Total 2.5 mg/dl (0.2-1); Globulin 3.4 gm/dl (2.5-4.0); Total Protein 6.5 gm/dl (6.4-8.2); Troponin I 0.021 ng/ml (0-0.045)
[2018-06-03 10:36] LABS: Appearance Urine Clear (Clear); Bacteria Urine Automated Negative (Negative); Bilirubin Urine Negative (Negative); Blood Urine Negative (Negative); Color Urine Dark Yellow; Epithelial Cell Urine Auto 0-5 /lpf (0-5); Glucose Urine UA Negative (Negative); Ketones Urine Trace (Negative); Leukocyte Esterase Urine Negative (Negative); Nitrite Urine Negative (Negative); Protein Urine Trace (Negative); Specific Gravity Urine 1.028 (1.000-1.030); Urobilinogen Urine Negative (Negative)
--- NOTE | 2018-06-03 10:41 | CT Scan Report ---
CT head/brain wo con CLINICAL HISTORY: 87 years-old Male presenting with generalized weakness, multiple recent falls, on b lood thinners, history of prior TIA. TECHNIQUE: Multidetector CT imaging of the head was performed without the use of intravenous contrast . IV contrast: None. One or more dose lowering techniques were used consistent with the principles of ALARA (as low as reasonably achievable), including automatic exposure control, mA or kV adjustment t o individual patient size, and/or use of iterative reconstruction. COMPARISON: 04/22/2018. CT DOSE (mGy.cm): The estimated cumulative dose is 614.27 mGy.cm. FINDINGS: [employer] topogram: Unremarkable. Proportional ventricular and sulcal prominence, likely age-related parenchymal volume loss. No hemorr ольга. Periventricular and subcortical white matter hypoattenuation, nonspecific but likely indicative of chronic small vessel ischemic change. No acute territorial infarct. No mass effect or midline brody ft. No extra-axial fluid collection. Paranasal sinuses and mastoid air cells clear. Calvarium intact. Absent point hope ira lenses. IMPRESSION: 1. Chronic small vessel ischemic change. No acute intracranial abnormality. Electronically signed by: Drew Ugalde M.D. 06/03/2018 10:39 AM
[2018-06-03] MEDS: SODIUM CHLORIDE 0.9% 500 ML IV SCH ×2 (12:39→19:15)
--- NOTE | 2018-06-03 14:58 | Emergency Department Note ---
ED Visit Note I have personally seen and evaluated the patient with the PA. I agree with the diagnosis and management decisions and have been personally involved in the case. On my evaluation, the patient is noted to be mildly hypotensive. He has positive orthostatic vital signs. Patient was hydrated with a 250 mL IV normal saline solution bolus. He was then given 125 mL's per hour. Patient remained stable with a fairly reassuring workup otherwise. Was felt that the patient can return to his assisted living facility and follow-up closely with his PCP. Please see Andre Orellana PA-C's notes for further details of the history, physical and visit. .
--- NOTE | 2018-06-03 16:38 | History & Physical Report ---
Date of Service June 03, 2018 Assessment & Plan (1) MRSA (methicillin resistant Staphylococcus aureus) infection: Chronic issue Current abx use, cipro 500mg BID WBC WNL, afebrile Follows with Dr. Lizarraga and [facility] c/s pending (2) Rheumatoid arthritis: Multiple joint deformities in hands and feet Likely contributing to ambulatory dysfunction (3) Ambulatory dysfunction: Related to above PT/OT pending Reported from ED that attempts to transfer pt from ED to [facility] or [facility] were not successful due to no bed availability (4) Chronic diastolic CHF (congestive heart failure): continue home meds (5) Hypertension: continue home meds (6) DVT prophylaxis: SCDs History of Present Illness Primary Care Provider: Drew Aldrich MD 87 y/o M who was brought here today after several falls at home. Pt states that he falls fairly regularly. He states that it is generally due to prolonged walking that leads to a weakness and inability to continue with ambulation. Last night, pt stood up to reposition himself in a chair and when he tried to sit back down, he missed the chair. He was unable to get himself back up. His did not hear him yelling for her and he was on the ground about 4-5 hours until she got up this AM and found him. They live at [facility] and help was called to assist. At some point after this, pt had another fall and it was determined that he should be seen in the ED. Pt states he hit his head "but not seriously". Pt has intermittent diarrhea. Pt denies fever, chest pain, abd pain, n/v. Pt states that he has had increased "huffing and puffing" by the time he gets to the [place]. This resolves once he is seated. Pt has ongoing issues with b/l great toe MRSA cellulitis. He is working with Dr. Lizarraga and [facility]. He has been on IV abx in the past, but is currently on cipro 500mg BID. His issues stem from joint deformities related to progressive RA. He has hx of amputations in the past and feels that this is likely where this is heading. He states he has issues walking with the current state of his feet. He has pain, redness, and swelling to the feet and this is no different than usual. Pain is also no different than usual. Pt needs a higher level of care and/or rehab. Both the [facility] and [facility] have no bed availability. Allergies Allergy/AdvReac Type Severity Reaction Status Date / Time No Known Allergies Allergy Verified 05/15/18 10:22 Home Medications Home Medications Medication Instructions Recorded Confirmed Type cholecalciferol (vitamin D3) 1,000 1,000 units PO DAILY 11/06/17 06/03/18 History unit capsule clopidogrel 75 mg tablet 75 mg PO DAILY 11/06/17 06/03/18 History furosemide 20 mg tablet 20 mg PO DAILY 11/06/17 06/03/18 History pravastatin 40 mg tablet 40 mg PO DAILY 11/06/17 06/03/18 History [id number] acid 1 tab PO QAM #30 tab 02/01/18 06/03/18 Rx [Certavite-Antioxidant] acetaminophen [Tylenol Extra 500 mg PO Q4 PRN MDD 6 tabs daily 04/22/18 06/03/18 History Strength] nitroglycerin [Nitrostat] 0.4 mg SUBLINGUAL UD PRN 04/22/18 06/03/18 History polyethylene glycol 3350 [Miralax] 17 g PO DAILY PRN 04/22/18 06/03/18 History sennosides-docusate sodium 1 tab PO BID PRN 04/22/18 06/03/18 History [Senna-S] Past Med/Surg History Medical History Pressure ulcer of toe of left foot, stage 2 (Acute) Vascular insufficiency of extremity Pressure ulcer of left buttock, stage 2 Atrial flutter Chronic diastolic CHF (congestive heart failure) Rheumatoid arthritis Right bundle branch block Ambulatory dysfunction (Resolved) Hypertension (Resolved) Pressure ulcer (Acute) Acute cerebrovascular insufficiency (Chronic) CAD (coronary artery disease) (Chronic) CHF (congestive heart failure) (Chronic) Gait abnormality (Chronic) Osteoarthritis (Chronic) 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) Venous insufficiency (chronic) (peripheral) (Chronic) Prostate CA (Resolved) 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 Fall Hyperbilirubinemia Influenza A Pressure ulcer of toe of right foot, stage 2 UTI (urinary tract infection) Surgical History S/P knee surgery (Resolved) TKR b/l S/P radiation therapy (Resolved) S/P triple vessel bypass (Resolved) History of cataract surgery History of cholecystectomy History of knee surgery S/P triple vessel bypass in [place] - Family History Other No significant family history Social History Preferred Language: Ivorian Beliefs That Will Affect Care: None marital status: marital status details: 1 son Current Living Situation: Spouse Current Living Situation Comment: [facility] at [facility] current occupational status: retired current occupation: fiberoptics at [employer] Feels Safe at Home: Yes Smoking Status: Former smoker Hx Alcohol Use: Yes (2-3 days a week) Hx Substance Use: No well-balanced diet: daily or most days during the past year weight has: remained stable Review of Systems Pertinent positives and negatives reviewed in HPI--all others negative Physical Exam Vital Signs (Past 24 Hours): Last Vital Signs Temp 36.6 C 06/03/18 09:00 Pulse 74 06/03/18 13:00 Resp 18 06/03/18 13:00 BP 119/74 06/03/18 13:00 Pulse Ox 94 06/03/18 13:00 Constitutional: WD/WN, vitals as above Eyes: normal visual [place] by confrontation and + anicteric sclerae Neck: normal visual inspection and trachea midline Respiratory: normal respiratory effort, lungs clear to auscultation Cardiovascular: Rate/Rhythm: regular rate and regular rhythm Gastrointestinal (Abdomen): Inspection/Auscultation: abdomen not distended Percussion/Palpation: abdomen soft; abdomen nontender Musculoskeletal: Head/Neck/Chest: normocephalic and head atraumatic 1+ pitting edema b/l, peripheral pulses intact Skin: Chronic skin changes noted above the ankle R great toe with significant deformity, redness, open ulceration noted L great toe with significant deformity, no redness, multiple open ulcerations noted Neurologic: awake; not confused Speech / Cognition: normal speech Psychiatric: A+Ox3, euthymic affect Results & Data Diagnostic Findings CXR: neg for acute CT head: neg for acute ECG Additional Comments: Afib with variable AV block, seen prior Code Status & VTE Plan Code Status DNR/DNI VTE Prophylaxis Plan VTE Prophylaxis will be ordered: Yes (1) Hypertension Hypertension type: essential hypertension Qualified Code(s): I10 - Essential (primary) hypertension
[2018-06-03] MEDS ORDERED: NITROGLYCERIN SL 0.4 MG/TAB TAB SL PRN (18:51)
[2018-06-03] MEDS ORDERED: ONDANSETRON INJ 2 MG/ML 2 ML VIAL IV PRN (18:51)
[2018-06-03] MEDS ORDERED: MAGNESIUM HYDROXIDE SUSP 30 ML UDC PO PRN (18:51)
[2018-06-03] MEDS ORDERED: POLYETHYLENE (MIRALAX) 17 GM PACK PO PRN (18:51)
[2018-06-03] MEDS ORDERED: DOCUSATE SODIUM/SENNA 50/8.6MG TAB PO PRN (18:51)
[2018-06-03] MEDS ORDERED: ACETAMINOPHEN 500 MG TAB PO PRN (18:51)
[2018-06-03] MEDS ORDERED: ACETAMINOPHEN 325 MG TAB PO PRN (18:51)
--- NOTE | 2018-06-03 18:58 | Emergency Department Note ---
History of Present Illness General Chief complaint: Hip Pain Time Seen by Provider: 06/03/18 09:11 Source: patient Mode of arrival: EMS Limitations: physical limitation History of Present Illness Maximum Pain Intensity: 1 This 87-year-old white male presents by BLS ambulance, for evaluation of generalized weakness. Patient states that he was at his cottage at the [facility] yesterday and went to sit in a chair. He fell out of the chair and landed on the ground. He states he was too weak to pull himself up. He laid on the floor for 4-5 hours. He tried to get his 's attention but she was sleeping. He tried to get the dog to wake up his , but that was unsuccessful. She eventually did wake and found him on the floor. Assistance was obtained to get him up. This morning he again went to sit in a chair and fell out. He landed on his buttocks. He again felt he was too weak to get up. Assistance was summoned. He was sent here for further evaluation. He denies any hip or knee pain. He is frustrated that he is so weak. He does amulet with a walker. He denies any numbness or tingling. 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 He has been receiving IV antibiotic therapy, but is now verbalizing that he would just like to have the toes removed. He has known rheumatoid arthritis. He already has an appointment to see an orthopedist. Patient has a baseline history of TIAs and has significant garbled speech. This is his norm. He denies any chest pain, shortness of breath, nausea, vomiting, headache, or back pain associated with his falls. He states he falls about once a day. Patient is evaluated in A2. Home Medications Home Medications Medication Instructions Recorded Confirmed Type cholecalciferol (vitamin D3) 1,000 1,000 units PO DAILY 11/06/17 06/03/18 History unit capsule clopidogrel 75 mg tablet 75 mg PO DAILY 11/06/17 06/03/18 History furosemide 20 mg tablet 20 mg PO DAILY 11/06/17 06/03/18 History pravastatin 40 mg tablet 40 mg PO DAILY 11/06/17 06/03/18 History Certavite-Antioxidant 1 tab PO QAM #30 tab 02/01/18 06/03/18 Rx acetaminophen [Tylenol Extra 500 mg PO Q4 PRN MDD 6 tabs daily 04/22/18 06/03/18 History Strength] nitroglycerin [Nitrostat] 0.4 mg SUBLINGUAL UD PRN 04/22/18 06/03/18 History polyethylene glycol 3350 [Miralax] 17 g PO DAILY PRN 04/22/18 06/03/18 History sennosides-docusate sodium 1 tab PO BID PRN 04/22/18 06/03/18 History [Senna-S] ciprofloxacin HCl 500 mg PO BID #60 tab 06/08/18 Rx dalbavancin 1,500 mg IV ONCE #1 ea 06/08/18 Rx Allergies Allergy/AdvReac Type Severity Reaction Status Date / Time No Known Allergies Allergy Verified 05/15/18 10:22 Past Med/Surg History Medical History Pressure ulcer of toe of left foot, stage 2 (Acute) Vascular insufficiency of extremity Pressure ulcer of left buttock, stage 2 Atrial flutter Chronic diastolic CHF (congestive heart failure) Rheumatoid arthritis Right bundle branch block Ambulatory dysfunction (Resolved) Hypertension (Resolved) Pressure ulcer (Acute) Acute cerebrovascular insufficiency (Chronic) CAD (coronary artery disease) (Chronic) CHF (congestive heart failure) (Chronic) Gait abnormality (Chronic) Osteoarthritis (Chronic) 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) Venous insufficiency (chronic) (peripheral) (Chronic) Prostate CA (Resolved) 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 Fall Hyperbilirubinemia Influenza A Pressure ulcer of toe of right foot, stage 2 UTI (urinary tract infection) Surgical History S/P knee surgery (Resolved) TKR b/l S/P radiation therapy (Resolved) S/P triple vessel bypass (Resolved) History of cataract surgery History of cholecystectomy History of knee surgery S/P triple vessel bypass in [place] - Family History Other No significant family history Social History Preferred Language: Djib[place] Beliefs That Will Affect Care: None marital status: marital status details: 1 son Current Living Situation: Spouse Current Living Situation Comment: [facility] at [facility] current occupational status: retired current occupation: fiberoptics at [employer] Other Information That Helps Us Care for You: No Feels Safe at Home: Yes Safety Concerns: Feels Safe At This Time Smoking Status: Former smoker Hx Alcohol Use: Yes (2-3 days a week) Hx Substance Use: No well-balanced diet: daily or most days during the past year weight has: remained stable Review of Systems A total of 10 systems reviewed and were otherwise negative Physical Exam Vital Signs Vital Signs - 24 hr 06/07/18 20:05 06/07/18 23:37 06/08/18 00:00 Temperature 36.8 C 36.6 C Temperature Source Oral Oral Pulse Rate Pulse Rate [Apical] 65 62 Pulse Rhythm [Apical] Regular Pulse Strength [Apical] Normal Respiratory Rate 18 16 Respiratory Effort / Characteristics Non-Labored SOB on Exertion Respiratory Depth Normal Respiratory Pattern Regular Blood Pressure [Left Arm] Blood Pressure [Right Arm] 143/73 H 144/76 H Blood Pressure Mean [Left Arm] Blood Pressure Mean [Right Arm] 96 98 Blood Pressure Position [Left Arm] Blood Pressure Position [Right Arm] Left Lateral Lying Pulse Oximetry 92 93 Oxygen Delivery Method Room Air Room Air 06/08/18 04:00 06/08/18 07:10 06/08/18 11:31 Temperature 36.4 C L 36.7 C Temperature Source Oral Oral Pulse Rate Pulse Rate [Apical] 68 56 L 68 Pulse Rhythm [Apical] Pulse Strength [Apical] Respiratory Rate 20 20 20 Respiratory Effort / Characteristics Respiratory Depth Respiratory Pattern Blood Pressure [Left Arm] 133/78 160/70 H Blood Pressure [Right Arm] 145/68 H Blood Pressure Mean [Left Arm] 96 100 Blood Pressure Mean [Right Arm] 93 Blood Pressure Position [Left Arm] Lying Sitting Blood Pressure Position [Right Arm] Pulse Oximetry 92 92 97 Oxygen Delivery Method Room Air Room Air Room Air 06/08/18 14:57 06/08/18 15:00 06/08/18 15:25 Temperature 36.3 C L 36.3 C L Temperature Source Oral Pulse Rate 47 L Pulse Rate [Apical] 49 L 49 L Pulse Rhythm [Apical] Pulse Strength [Apical] Respiratory Rate 18 18 Respiratory Effort / Characteristics Respiratory Depth Respiratory Pattern Blood Pressure [Left Arm] 135/67 135/67 Blood Pressure [Right Arm] 145/68 H Blood Pressure Mean [Left Arm] 89 Blood Pressure Mean [Right Arm] Blood Pressure Position [Left Arm] Lying Blood Pressure Position [Right Arm] Pulse Oximetry 94 94 Oxygen Delivery Method General: Well-developed, well-nourished, elderly white male, in distress. Cur rently laying on a bed. Alert and oriented. Garbled speech which is his baseline. Occasionally dozes off during today's visit. Skin: Warm and dry with fair turgor. No rashes. No ecchymosis. Open ulcerations present at his great toes and on the plantar surface of the right foot. The patient is not diaphoretic. No abrasions. Venous stasis changes are present on his lower extremities. HEENT: Normocephalic atraumatic. Eyes PERRLA, EOMI. No conjunctiva or scleral injection. Ears TMs intact bilaterally with good light reflexes. No erythema or bulging. No hemotympanum. Canals are patent. Nares patent bilaterally without turbinate enlargement. No significant drainage. No epistaxis. Oropharynx without erythema or exudate. Uvula midline, oral mucosa moist. No lesions present. Heart: Heart RRR. No MGR. Peripheral pulses are 2+. Lungs: Lungs are clear to auscultation. No crackles rhonchi or wheezing. Good air movement. The patient is able to take a deep breath. Abdomen: Abdomen was inspected, auscultated, and palpated. Bowel sounds present x 4. Soft, nontender to palpation. No hepato-splenomegaly. No masses noted. Musculoskeletal: Supple motion of both hips without discomfort. No evidence of significant leg length discrepancy. No pain with flexion or extension of the knees either actively or passively. Obvious rheumatoid deformity to both great toes. They are hooked laterally with hallux valgus.. Ulcerations present on the great toes as well as on the plantar surface of the right foot. Supple motion of his shoulders and elbows without discomfort. No pain with palpation of the cervical spine. Neurologic: Gross sensation is intact across the upper and lower extremities by soft touch. Course Administered Medications Ciprofloxacin (Cipro) 500 mg PO BID [facility]; Protocol Stop: 06/13/18 20:59 Last Admin: 06/08/18 08:13 Dose: 500 mg Documented by: [id number] Admin: 06/07/18 21:38 Dose: 500 mg Documented by: [id number] Admin: 06/07/18 08:15 Dose: 500 mg Documented by: [id number] Admin: 06/06/18 20:13 Dose: 500 mg Documented by: [id number] Admin: 06/06/18 07:52 Dose: 500 mg Documented by: [id number] Admin: 06/05/18 21:04 Dose: 500 mg Documented by: [id number] Admin: 06/05/18 07:45 Dose: 500 mg Documented by: [id number] Admin: 06/04/18 20:34 Dose: 500 mg Documented by: [id number] Admin: 06/04/18 09:00 Dose: 500 mg Documented by: [id number] Admin: 06/03/18 21:10 Dose: 500 mg Documented by: [id number] Clopidogrel Bisulfate (Plavix) 75 mg PO DAILY SREE Stop: 07/04/18 08:59 Last Admin: 06/08/18 08:14 Dose: 75 mg Documented by: [id number] Admin: 06/07/18 08:15 Dose: 75 mg Documented by: [id number] Admin: 06/06/18 07:52 Dose: 75 mg Documented by: [id number] Admin: 06/05/18 07:46 Dose: 75 mg Documented by: [id number] Admin: 06/04/18 09:01 Dose: 75 mg Documented by: [id number] Furosemide (Lasix) 20 mg PO DAILY SREE Stop: 07/04/18 08:59 Last Admin: 06/08/18 08:13 Dose: 20 mg Documented by: [id number] Admin: 06/07/18 08:15 Dose: 20 mg Documented by: [id number] Admin: 06/06/18 07:52 Dose: 20 mg Documented by: [id number] Admin: 06/05/18 07:45 Dose: 20 mg Documented by: [id number] Admin: 06/04/18 09:01 Dose: 20 mg Documented by: [id number] Daptomycin 425 mg/ Syringe 8.5 mls @ 4.25 mls/min IV Q24H SREE; Protocol Stop: 07/18/18 15:59 Last Admin: 06/08/18 16:08 Dose: Not Given Documented by: [id number] Admin: 06/07/18 16:14 Dose: 4.25 mls/min Documented by: [id number] Admin: 06/06/18 19:06 Dose: 4.25 mls/min Documented by: [id number] Multivitamins/Minerals (Multivitamin W/ Minerals Tab) 1 tab PO QAM SREE Stop: 07/04/18 08:59 Last Admin: 06/08/18 08:14 Dose: 1 tab Documented by: [id number] Admin: 06/07/18 08:15 Dose: 1 tab Documented by: [id number] Admin: 06/06/18 07:52 Dose: 1 tab Documented by: [id number] Admin: 06/05/18 07:46 Dose: 1 tab Documented by: [id number] Admin: 06/04/18 09:01 Dose: 1 tab Documented by: [id number] Polyethylene Glycol (Miralax Powder Packet) 17 gm PO DAILY PRN PRN Reason: Constipation Stop: 07/03/18 18:50 Last Admin: 06/07/18 09:25 Dose: 17 gm Documented by: [id number] Pravastatin Sodium (Pravachol) 40 mg PO DAILY SREE Stop: 07/04/18 08:59 Last Admin: 06/08/18 08:13 Dose: 40 mg Documented by: [id number] Admin: 06/07/18 08:15 Dose: 40 mg Documented by: [id number] Admin: 06/06/18 07:52 Dose: 40 mg Documented by: [id number] Admin: 06/05/18 07:47 Dose: 40 mg Documented by: [id number] Admin: 06/04/18 09:01 Dose: 40 mg Documented by: [id number] Tramadol HCl (Ultram) 50 mg PO Q4H PRN PRN Reason: Pain Stop: 07/07/18 10:28 Last Admin: 06/07/18 11:09 Dose: 50 mg Documented by: [id number] Vitamin D (Vitamin D3) 1,000 units PO DAILY SREE Stop: 07/04/18 08:59 Last Admin: 06/08/18 08:14 Dose: 1,000 units Documented by: [id number] Admin: 06/07/18 08:15 Dose: 1,000 units Documented by: [id number] Admin: 06/06/18 07:52 Dose: 1,000 units Documented by: [id number] Admin: 06/05/18 07:45 Dose: 1,000 units Documented by: [id number] Admin: 06/04/18 09:01 Dose: 1,000 units Documented by: [id number] Discontinued Medications Bacitracin (Bacitracin) Confirm Administered Dose 50,000 units .ROUTE .STK-MED ONE Stop: 06/06/18 15:40 Last Admin: 06/06/18 16:52 Dose: 50,000 units Documented by: [id number] Bupivacaine HCl (Marcaine 0.5% Mpf) Confirm Administered Dose 30 ml .ROUTE .STK- MED ONE Stop: 06/06/18 15:39 Last Admin: 06/06/18 17:09 Dose: Not Given Documented by: [id number] Cefazolin Sodium (Ancef 2000mg) Confirm Administered Dose 2,000 mg IV .STK-MED ONE Stop: 06/06/18 16:17 Last Admin: 06/06/18 16:21 Dose: Not Given Documented by: [id number] Sodium Chloride (Nss 1000ml) 250 mls @ 999 mls/hr IV .Q16M [facility] Stop: 06/03/18 10:24 Last Infusion: 06/03/18 10:35 Dose: 0 mls/hr Documented by: [id number] Admin: 06/03/18 10:19 Dose: 999 mls/hr Documented by: [id number] Sodium Chloride (Nss) 500 mls @ 150 mls/hr IV .Q3H20M [facility] Stop: 07/03/18 12:29 Last Admin: 06/03/18 19:15 Dose: Not Given Documented by: [id number] Infusion: 06/03/18 16:53 Dose: 0 mls/hr Documented by: [id number] Admin: 06/03/18 12:39 Dose: 150 mls/hr Documented by: [id number] Sodium Chloride (Nss 1000ml) 1,000 mls @ 150 mls/hr IV .Q6H40M [facility] Stop: 07/03/18 18:59 Last Infusion: 06/04/18 08:45 Dose: 0 mls/hr Documented by: [id number] Infusion: 06/04/18 06:28 Dose: 150 mls/hr Documented by: [id number] Admin: 06/04/18 02:04 Dose: 150 mls/hr Documented by: [id number] Infusion: 06/04/18 01:55 Dose: 150 mls/hr Documented by: [id number] Admin: 06/03/18 19:14 Dose: 150 mls/hr Documented by: [id number] Lidocaine HCl (Xylocaine 1% (Local)) Confirm Administered Dose 20 ml .ROUTE .STK-MED ONE Stop: 06/06/18 15:39 Last Admin: 06/06/18 17:09 Dose: Not Given Documented by: [id number] Medical Decision Making Differential Diagnosis Generalized weakness, cardiac arrhythmia, electrolyte abnormality, TIA, osteoarthritis, sepsis Medical Records Attestation: I reviewed the patient's medical records. Home Medications Current Medication List: was personally reviewed by me Laboratory Data Attestation: I reviewed the patient's lab results. CBC, Chemistry panel, CK/CK-MB, troponin, and TSH were obtained. No elevation in TSH or cardiac enzymes. CBC is normal with a white count of 6.1. Chemistry panel was also essentially normal. Elevated bilirubin of 2.5. UA shows trace protein and ketones. No evidence of infection. Result diagrams: 06/03/18 09:38 06/03/18 09:38 Lab Results 06/03/18 06/03/18 06/03/18 Range/Units 09:38 09:38 09:38 WBC 6.15 (4.8-10.8) K/uL RBC 4.74 (4.7-6.1) M/uL Hgb 14.2 (14.0-18.0) g/dL Hct 42.2 (42-52) % MCV 89.0 (80-100) fL MCH 30.0 (25-34) pg MCHC 33.6 (32-36) g/dL RDW Std Deviation 54.2 H (36.4-46.3) fL RDW Coeff of Yusef 16.5 H (11.5-14.5) % Plt Count 159 (130-400) K/uL MPV 9.1 (7.4-10.4) fL Immature Gran % (Auto) 0.3 % Neut % (Auto) 79.0 % Lymph % (Auto) 6.7 % [place] % (Auto) 13.8 % Eos % (Auto) 0.0 % Baso % (Auto) 0.2 % Immature Gran # (Auto) 0.02 (0.00-0.02) K/uL Neut # (Auto) 4.86 (1.4-6.5) K/uL Lymph # (Auto) 0.41 L (1.2-3.4) K/uL [place] # (Auto) 0.85 H (0.11-0.59) K/uL Eos # (Auto) 0.00 (0-0.5) K/uL Baso # (Auto) 0.01 (0-0.2) K/uL Sodium 140 (136-145) mmol/L Potassium 3.9 (3.5-5.1) mmol/L Chloride 107 (98-107) mmol/L Carbon Dioxide 29 (21-32) mmol/L Anion Gap 4.0 (3-11) BUN 16 (7-18) mg/dl Creatinine 0.88 (0.6-1.4) mg/dl Est Cr Clr Drug Dosing 62.6 ml/min Est GFR ( Amer) 88.3 Est GFR (Non-Af Amer) 76.2 BUN/Creatinine Ratio 17.7 (10-20) Glucose 99 (70-99) mg/dl Lactate 1.6 (0.4-2.0) mmol/L Calcium 8.5 (8.5-10.1) mg/dl Total Bilirubin 2.5 H (0.2-1) mg/dl AST 22 (15-37) U/L ALT 27 (12-78) U/L Alkaline Phosphatase 57 (45-117) U/L Total Creatine Kinase 128 (39-308) U/L Troponin I 0.021 (0-0.045) ng/ml Total Protein 6.5 (6.4-8.2) gm/dl Albumin 3.1 L (3.4-5.0) gm/dl Globulin 3.4 (2.5-4.0) gm/dl Albumin/Globulin Ratio 0.9 (0.9-2) TSH 0.320 (0.300-4.500) uIu/ml Urine Color Urine Appearance (Clear) Urine pH (4.5-7.5) Ur Specific [place] (1.000-1.030) Urine Protein (Negative) Urine Glucose (UA) (Negative) Urine Ketones (Negative) Urine Blood (Negative) Urine Nitrite (Negative) Urine Bilirubin (Negative) Urine Urobilinogen (Negative) Ur Leukocyte Esterase (Negative) Urine WBC (Auto) (0-5) /hpf Urine RBC (Auto) (0-4) /hpf U Hyaline Cast (Auto) (0-5) /lpf U Epithel Cells (Auto) (0-5) /lpf Urine Bacteria (Auto) (Negative) 06/03/18 Range/Units 10:20 WBC (4.8-10.8) K/uL RBC (4.7-6.1) M/uL Hgb (14.0-18.0) g/dL Hct (42-52) % MCV (80-100) fL MCH (25-34) pg MCHC (32-36) g/dL RDW Std Deviation (36.4-46.3) fL RDW Coeff of Yusef (11.5-14.5) % Plt Count (130-400) K/uL MPV (7.4-10.4) fL Immature Gran % (Auto) % Neut % (Auto) % Lymph % (Auto) % [place] % (Auto) % Eos % (Auto) % Baso % (Auto) % Immature Gran # (Auto) (0.00-0.02) K/uL Neut # (Auto) (1.4-6.5) K/uL Lymph # (Auto) (1.2-3.4) K/uL [place] # (Auto) (0.11-0.59) K/uL Eos # (Auto) (0-0.5) K/uL Baso # (Auto) (0-0.2) K/uL Sodium (136-145) mmol/L Potassium (3.5-5.1) mmol/L Chloride (98-107) mmol/L Carbon Dioxide (21-32) mmol/L Anion Gap (3-11) BUN (7-18) mg/dl Creatinine (0.6-1.4) mg/dl Est Cr Clr Drug Dosing ml/min Est GFR ( Amer) Est GFR (Non-Af Amer) BUN/Creatinine Ratio (10-20) Glucose (70-99) mg/dl Lactate (0.4-2.0) mmol/L Calcium (8.5-10.1) mg/dl Total Bilirubin (0.2-1) mg/dl AST (15-37) U/L ALT (12-78) U/L Alkaline Phosphatase (45-117) U/L Total Creatine Kinase (39-308) U/L Troponin I (0-0.045) ng/ml Total Protein (6.4-8.2) gm/dl Albumin (3.4-5.0) gm/dl Globulin (2.5-4.0) gm/dl Albumin/Globulin Ratio (0.9-2) TSH (0.300-4.500) uIu/ml Urine Color Dark Yellow Urine Appearance Clear (Clear) Urine pH 5.0 (4.5-7.5) Ur Specific [place] 1.028 (1.000-1.030) Urine Protein Trace H (Negative) Urine Glucose (UA) Negative (Negative) Urine Ketones Trace H (Negative) Urine Blood Negative (Negative) Urine Nitrite Negative (Negative) Urine Bilirubin Negative (Negative) Urine Urobilinogen Negative (Negative) Ur Leukocyte Esterase Negative (Negative) Urine WBC (Auto) 1-5 (0-5) /hpf Urine RBC (Auto) 5-10 H (0-4) /hpf U Hyaline Cast (Auto) 1-5 (0-5) /lpf U Epithel Cells (Auto) 0-5 (0-5) /lpf Urine Bacteria (Auto) Negative (Negative) Imaging Data Attestation: I personally reviewed and interpreted this imaging study as follows: Radiologist's Impression: Chest x-ray obtained today was reviewed by me and read by radiology. He has minimal basilar opacities likely atelectasis or scarring. No convincing evidence of acute cardiopulmonary disease. There is resolution of prior left basilar infiltrate. ECG Data Attestation: I personally reviewed and interpreted this ECG as follows: Additional Comments: EKG obtained today shows atrial flutter with a rate of 50. Right bundle branch block is present. No acute ST or T wave changes. This was reviewed with Dr. Ramirez. Blood Pressure Blood Pressure Disposition: elevated BP felt to be situational MDM Narrative Patient was evaluated in A2. Today's findings and conservative care measures were discussed. IV was established. Labs were obtained. Chest x-ray and EKG were also obtained. There were no acute findings. He was placed on a monitor. Patient remained stable while in the ED. He does not appear septic. Lab work was found to be unremarkable. He was given an ambulation trial after eating lunch. Patient required 2 person assist with his walker, and continued to lean backward when trying to ambulate. Because of this, patient may benefit from rehab to improve his weakness and improve his gait. Case management did speak with him about placement. No beds were available at the [facility] or at [facility]. He was unable to be placed at a facility today. Because of this, [facility] hospitalist service was consulted for overnight observation. Please see that dictation for final management. Patient remained stable while in the ED. He was seen in conjunction with Dr. Ramirez, who also evaluated the patient and concurred with today's diagnosis and treatment plan. Impression & Plan Frequent falls, Rheumatoid arthritis, Pressure ulcer of toe of left foot, stage 2 Discharge Plan Visit Data *Final* Discharge Date/Time: 06/03/18 18:13 Chief Complaint: Hip Pain ED Provider: Susie Ramirez ED Midlevel Provider: Andre Orellana Discharge Problem: Frequent falls, Rheumatoid arthritis, Pressure ulcer of toe of left foot, stage 2 Patient Disposition: Admitted As Inpatient Discharge Instructions Interventions: ED Discharge Assessment Last Done: 06/03/18 18:13 Discharge Problem: Rheumatoid arthritis Qualifiers: Rheumatoid arthritis location: multiple sites Rheumatoid factor presence: unspecified presence Qualified Code(s): M06.9 - Rheumatoid arthritis, unspecified
[2018-06-03] MEDS: SODIUM CHLORIDE 0.9% 1000ML 1,000 ML IV SCH (19:14)
[2018-06-03] MEDS: CIPROFLOXACIN 500 MG TAB PO SCH (21:10)
[2018-06-04] MEDS: SODIUM CHLORIDE 0.9% 1000ML 1,000 ML IV SCH (02:04)
[2018-06-04] MEDS: CIPROFLOXACIN 500 MG TAB PO SCH ×2 (09:00→20:34)
[2018-06-04] MEDS: FUROSEMIDE 20 MG TAB PO SCH (09:01)
[2018-06-04] MEDS: CEROVITE ADV FORMULA TAB PO SCH (09:01)
[2018-06-04] MEDS: CLOPIDOGREL BISULFATE 75 MG TAB PO SCH (09:01)
[2018-06-04] MEDS: CHOLECALCIFEROL 1,000 UNITS TAB PO SCH (09:01)
[2018-06-04] MEDS: PRAVASTATIN SOD 40 MG TAB PO SCH (09:01)
--- NOTE | 2018-06-04 10:05 | Family Medicine Progress Note ---
Date of Service June 04, 2018 Assessment & Plan (1) Frequent falls: MRSA (methicillin resistant Staphylococcus aureus) infection: Current abx use, cipro 500mg BID WBC WNL, afebrile Follows with Dr. Lizarraga and wound care. [facility] c/s pending Ambulatory dysfunction and recurrent falls: Likely from joint deformities from RA, deconditioning and underlying infection. PT/OT pending Reported from ED that attempts to transfer [facility] were not successful due to no bed availability Rheumatoid arthritis: Multiple joint deformities in hands and feet Likely contributing to ambulatory dysfunction Chronic diastolic CHF continue home meds Hypertension: continue home meds DVT prophylaxis: SCDs Discontinue IVF Case mx for discharge planning Subjective no new concerns overnight. denies nausea. ate breakfast. thinks he has been falling due to infection and his feet needs to be amputated to get rid of the infection to help him improve. Physical Exam Vital Signs (Past 24 Hours): Last Vital Signs Temp 36.6 C 06/04/18 08:00 Pulse 57 L 06/04/18 08:00 Resp 16 06/04/18 08:00 BP 139/74 06/04/18 08:00 Pulse Ox 94 06/04/18 08:00 Constitutional: WD/WN, vitals as above Respiratory: normal respiratory effort, lungs clear to auscultation Cardiovascular: RRR, no murmur, no edema Skin: both feet with disfigured MTP and IP joints. dressing on the big toe and sole of MTP joints Psychiatric: A+Ox3, euthymic affect
[2018-06-05] MEDS: FUROSEMIDE 20 MG TAB PO SCH (07:45)
[2018-06-05] MEDS: CHOLECALCIFEROL 1,000 UNITS TAB PO SCH (07:45)
[2018-06-05] MEDS: CIPROFLOXACIN 500 MG TAB PO SCH ×2 (07:45→21:04)
[2018-06-05] MEDS: CEROVITE ADV FORMULA TAB PO SCH (07:46)
[2018-06-05] MEDS: CLOPIDOGREL BISULFATE 75 MG TAB PO SCH (07:46)
[2018-06-05] MEDS: PRAVASTATIN SOD 40 MG TAB PO SCH (07:47)
--- NOTE | 2018-06-05 10:39 | Infectious Disease Consult ---
Date of Consultation June 05, 2018 Assessment & Plan (1) Chronic osteomyelitis of toe of left foot: Patient with chronic osteomyelitis of the left great toe with severe deformity, currently under treatment with IV dalbavancin and oral ciprofloxacin. Would consider treating patient with IV daptomycin while in hospital, and he is scheduled for follow-up dose of dalbavancin at the [facility]. Would recommend orthopedic consultation as may require amputation of left great toe given marked deformity and risk for persistent/recurrent infection. Will discuss with all involved. Will follow. (2) MRSA (methicillin resistant Staphylococcus aureus) infection: (3) Skin ulcer of left great toe: History of Present Illness Reason for Consultation: foot infection Attending Physician: Jessica Gamble MD History of Present Illness 87-year-old male well-known to me with history of osteomyelitis of the left great toe, currently under treatment with IV dalbavancin and oral ciprofloxacin. Previous cultures positive for MRSA, group B strep, and previously pseudomonas aeruginosa. He was seen September 28 in the office, and was scheduled for another dose of IV dalbavancin. However he is now readmitted after suffering several falls. States there is been no worsening in his foot wounds, no increase in drainage, chronic swelling relatively unchanged, some persistent mild erythema. Reports no fever chills or increasing pain. Currently on oral ciprofloxacin. White count is normal, chest x-ray shows no obvious infiltrate Allergies Allergy/AdvReac Type Severity Reaction Status Date / Time No Known Allergies Allergy Verified 05/15/18 10:22 Home Medications Home Medications Medication Instructions Recorded Confirmed Type cholecalciferol (vitamin D3) 1,000 1,000 units PO DAILY 11/06/17 06/03/18 History unit capsule clopidogrel 75 mg tablet 75 mg PO DAILY 11/06/17 06/03/18 History furosemide 20 mg tablet 20 mg PO DAILY 11/06/17 06/03/18 History pravastatin 40 mg tablet 40 mg PO DAILY 11/06/17 06/03/18 History bmwoayevkcmf-pdva-plgoe acid 1 tab PO QAM #30 tab 02/01/18 06/03/18 Rx [Certavite-Antioxidant] acetaminophen [Tylenol Extra 500 mg PO Q4 PRN MDD 6 tabs daily 04/22/18 06/03/18 History Strength] nitroglycerin [Nitrostat] 0.4 mg SUBLINGUAL UD PRN 04/22/18 06/03/18 History polyethylene glycol 3350 [Miralax] 17 g PO DAILY PRN 04/22/18 06/03/18 History sennosides-docusate sodium 1 tab PO BID PRN 04/22/18 06/03/18 History [Senna-S] Patient History Medical History Pressure ulcer of toe of left foot, stage 2 (Acute) Vascular insufficiency of extremity Pressure ulcer of left buttock, stage 2 Atrial flutter Chronic diastolic CHF (congestive heart failure) Rheumatoid arthritis Right bundle branch block Ambulatory dysfunction (Resolved) Hypertension (Resolved) Pressure ulcer (Acute) Acute cerebrovascular insufficiency (Chronic) CAD (coronary artery disease) (Chronic) CHF (congestive heart failure) (Chronic) Gait abnormality (Chronic) Osteoarthritis (Chronic) 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) Venous insufficiency (chronic) (peripheral) (Chronic) Prostate CA (Resolved) 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 Fall Hyperbilirubinemia Influenza A Pressure ulcer of toe of right foot, stage 2 UTI (urinary tract infection) Surgical History S/P knee surgery (Resolved) TKR b/l S/P radiation therapy (Resolved) S/P triple vessel bypass (Resolved) History of cataract surgery History of cholecystectomy History of knee surgery S/P triple vessel bypass in [place] - Family History Other No significant family history Social History Communication Ability: Effective Beliefs That Will Affect Care: None marital status: marital status details: 1 son Current Living Situation: Spouse Current Living Situation Comment: Maura at [facility] current occupational status: retired current occupation: fiberoptics at [employer] Other Information That Helps Us Care for You: No Feels Safe at Home: Yes Safety Concerns: Feels Safe At This Time Smoking Status: Former smoker Hx Alcohol Use: Yes (2-3 days a week) Hx Substance Use: No well-balanced diet: daily or most days during the past year weight has: remained stable Review of Systems All systems were reviewed and are negative except as per HPI Physical Exam Vital Signs (Past 24 Hours): Last Vital Signs Temp 36.4 C L 06/05/18 07:55 Pulse 76 06/05/18 07:55 Resp 20 06/05/18 07:55 BP 149/79 H 06/05/18 07:55 Pulse Ox 94 06/05/18 07:55 Constitutional: WD/WN, vitals as above comfortable; no acute distress Eyes: PERRL, conjunctivae normal, anicteric sclerae ENMT: external ear and nose normal, oropharynx normal Neck: trachea midline, no thyromegaly neck nontender Respiratory: normal respiratory effort, lungs clear to auscultation normal percussion; does not use accessory muscles Cardiovascular: Rate/Rhythm: regular rate and regular rhythm Heart Sounds: normal S1 and normal S2; no gallop, no murmur and no cardiac rub Vessels: normal peripheral pulses; no JVD Gastrointestinal (Abdomen): normal bowel sounds, soft, nontender, no hepatosplenomegaly Musculoskeletal: no cyanosis or clubbing, extremities motor strength 5/5 Spine: thoracic spine normal to inspection and lumbar spine normal to inspection; no cervical spinal tenderness Extremities: + foot abnormality (Deformities of multiple toes with great toe ulcerations, unchanged plantar ulceration) Skin: no rashes, warm and dry normal turgor and + wound (Bilateral great toe ulcers with plantar ulcer, no purulent drainage, mild erythema) Neurologic: patellar DTR's 2+ bilat, sensation intact no focal motor deficits Psychiatric: A+Ox3, euthymic affect Orientation: cooperative Lymphatic: no cervical or axillary lymphadenopathy no inguinal lymphadenopathy Results & Data Diagnostic Findings XR chest 1V portable CLINICAL HISTORY: 87 years-old Male presenting with weakness. TECHNIQUE: PA view of the chest was obtained. COMPARISON: 04/22/2018. FINDINGS: Median sternotomy wires noted. Atherosclerosis of the aortic arch. Calcified right paratracheal lymph node suggested versus calcified granuloma. Cardiac silhouette top normal in size. Minimal linear irregular opacities at the lung bases, left greater than right. Interval resolution of prior left basilar opacity. No other new focal opacity. No large effusion or pneumothorax. Degenerative changes of the thoracic spine. Advanced degenerative changes of the glenohumeral joints. Suspected underlying osteopenia. Upper abdomen normal. IMPRESSION: 1. Minimal basilar opacities likely atelectasis or scarring. No convincing evidence of acute cardiopulmonary disease. 2. Resolution of prior left basilar infiltrate. Electronically signed by: Drew Ugalde M.D. 06/03/2018 10:07 AM (1) Skin ulcer of left great toe Non-pressure ulcer stage: unspecified non-pressure ulcer stage Qualified Code(s): L97.529 - Non-pressure chronic ulcer of other part of left foot with unspecified severity
--- NOTE | 2018-06-05 14:57 | Family Medicine Progress Note ---
Date of Service June 05, 2018 Assessment & Plan (1) Frequent falls: Left fifth toe MRSA osteomyelitis: Current abx use, cipro 500mg BID. Also on Dalbavancin - to be infused tomorrow Consulted ID - recommended continue inpatient care and consult ortho. Consult placed. Ambulatory dysfunction and recurrent falls: Likely from joint deformities from RA, deconditioning and underlying infection. PT/OT Rheumatoid arthritis: Multiple joint deformities in hands and feet Likely contributing to ambulatory dysfunction Chronic diastolic CHF continue home meds Hypertension: continue home meds DVT prophylaxis: SCDs Case mx for discharge planning Subjective no new concerns overnight. doing well and would like to be discharged so he can attend concert at his personal senior care. no chest pain, shortness of breath, eating well Physical Exam Vital Signs (Past 24 Hours): Last Vital Signs Temp 36.4 C L 06/05/18 07:55 Pulse 76 06/05/18 07:55 Resp 20 06/05/18 07:55 BP 149/79 H 06/05/18 07:55 Pulse Ox 94 06/05/18 07:55 Constitutional: WD/WN, vitals as above Respiratory: normal respiratory effort, lungs clear to auscultation Cardiovascular: RRR, no murmur, no edema Gastrointestinal (Abdomen): normal bowel sounds, soft, nontender, no hepatosplenomegaly Skin: both feet with MTP joint deformities and ulcers.
--- NOTE | 2018-06-05 17:08 | Orthopedic Consultation ---
Date of Consultation June 05, 2018 Assessment & Plan (1) Osteomyelitis: Issue was discussed with patient. We also discussed patient's issues with his orthopedist Dr. Quezada. He has an established relationship with patient and care will be deferred to his service. Supervising Physician Co-Signing Physician Notes I saw and examined the patient. Agree with the above note. Patient is not septic at this time. Dr. Quezada will assume care for his feet, as per the patient's preference due to longstanding relationship with Dr. Quezada. History of Present Illness Reason for Consultation: Left great toe osteomyelitis Attending Physician: Jessica Gamble MD History of Present Illness This 87 yo Male was seen for a consultation for Left great toe osteomyelitis. Patient states that he has had an open sore on the distal portion of the toe for approx 9 months. He states that he was admitted due to TIA associated falls. He also states that he has open sores on the right foot. Pt has no complaints of pain, fever, chills, sweats, nausea or vomiting at this time but has increased weakness in the Right arm and lower extremity Allergies Allergy/AdvReac Type Severity Reaction Status Date / Time No Known Allergies Allergy Verified 05/15/18 10:22 Home Medications Home Medications Medication Instructions Recorded Confirmed Type cholecalciferol (vitamin D3) 1,000 1,000 units PO DAILY 11/06/17 06/03/18 History unit capsule clopidogrel 75 mg tablet 75 mg PO DAILY 11/06/17 06/03/18 History furosemide 20 mg tablet 20 mg PO DAILY 11/06/17 06/03/18 History pravastatin 40 mg tablet 40 mg PO DAILY 11/06/17 06/03/18 History ynmcbgtlbpso-cilj-lhuyx acid 1 tab PO QAM #30 tab 02/01/18 06/03/18 Rx [Certavite-Antioxidant] acetaminophen [Tylenol Extra 500 mg PO Q4 PRN MDD 6 tabs daily 04/22/18 06/03/18 History Strength] nitroglycerin [Nitrostat] 0.4 mg SUBLINGUAL UD PRN 04/22/18 06/03/18 History polyethylene glycol 3350 [Miralax] 17 g PO DAILY PRN 04/22/18 06/03/18 History sennosides-docusate sodium 1 tab PO BID PRN 04/22/18 06/03/18 History [Senna-S] Patient History Medical History Pressure ulcer of toe of left foot, stage 2 (Acute) Vascular insufficiency of extremity Pressure ulcer of left buttock, stage 2 Atrial flutter Chronic diastolic CHF (congestive heart failure) Rheumatoid arthritis Right bundle branch block Ambulatory dysfunction (Resolved) Hypertension (Resolved) Pressure ulcer (Acute) Acute cerebrovascular insufficiency (Chronic) CAD (coronary artery disease) (Chronic) CHF (congestive heart failure) (Chronic) Gait abnormality (Chronic) Osteoarthritis (Chronic) 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) Venous insufficiency (chronic) (peripheral) (Chronic) Prostate CA (Resolved) 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 Fall Hyperbilirubinemia Influenza A Pressure ulcer of toe of right foot, stage 2 UTI (urinary tract infection) Surgical History S/P knee surgery (Resolved) TKR b/l S/P radiation therapy (Resolved) S/P triple vessel bypass (Resolved) History of cataract surgery History of cholecystectomy History of knee surgery S/P triple vessel bypass in [place] - Family History Other No significant family history Social History Communication Ability: Effective Beliefs That Will Affect Care: None marital status: marital status details: 1 son Current Living Situation: Spouse Current Living Situation Comment: Maura at [facility] current occupational status: retired current occupation: fiberoptics at [employer] Feels Safe at Home: Yes Smoking Status: Former smoker Hx Alcohol Use: Yes (2-3 days a week) Hx Substance Use: No well-balanced diet: daily or most days during the past year weight has: remained stable Review of Systems Constitutional: as per Subjective / HPI Physical Exam Vital Signs (Past 24 Hours): Last Vital Signs Temp 36.4 C L 06/05/18 15:51 Pulse 45 L 06/05/18 15:51 Resp 24 06/05/18 15:51 BP 150/67 H 06/05/18 15:51 Pulse Ox 95 06/05/18 15:51 Physical Exam: Left great toe: open lesion to distal aspect of digit. hammer deformity of digit at IP joint. Previously excision of 2nd digit. no te nderness to palpation. Stasis dermatitis to entire lower leg. Decreased sensation to light touch due to chronic neuropathic state. periph pulse faint but palpable. Cap refill > 2 seconds.
--- NOTE | 2018-06-06 07:18 | XRay Report ---
LEFT FOOT 3 VIEWS CLINICAL HISTORY: Infection. FINDINGS: 3 views of the left foot are correlated with CT scan dated 02/15/2018. The skeletal structu res are osteopenic. No fracture is seen. No bony obstruction or periostitis is identified. There has been amputation of the second toe through the proximal shaft of the second proximal phalanx. Moderate osteoarthritic change is seen at the first metatarsophalangeal joint. Advanced arthritic change with erosion and subluxation is seen at the first interphalangeal joint. Osteoarthritic change is also se en involving the third and fourth distal interphalangeal joints. Mild arthritic change is noted in th e midfoot. There is a plantar calcaneal enthesophyte. Soft tissue edema is noted throughout the foot. There is atherosclerotic calcification of the regional arteries. IMPRESSION: 1. Soft tissue edema with no acute bony abnormality identified. 2. Osteopenia, arthritic change, and postoperative change as above. Electronically signed by: Jacek Chan M.D. 06/06/2018 7:17 AM
--- NOTE | 2018-06-06 07:23 | XRay Report ---
XR foot RT min 3V routine CLINICAL HISTORY: assess osteomyelitis COMPARISON: None. DISCUSSION: Severe degenerative change throughout. Moderate generalized soft tissue edema about the g reat toe and first metatarsal. Evidence for an old healed fracture of the third metatarsal. No evidence for a bony destructive process. No abnormal contrast reaction. IMPRESSION: Severe degenerative change. Soft tissue edema. No evidence for osteomyelitis The above report was generated using voice recognition software. It may contain grammatical, syntax or spelling errors. Electronically signed by: Magnus Reid M.D. 06/06/2018 7:21 AM
[2018-06-06] MEDS: CHOLECALCIFEROL 1,000 UNITS TAB PO SCH (07:52)
[2018-06-06] MEDS: CLOPIDOGREL BISULFATE 75 MG TAB PO SCH (07:52)
[2018-06-06] MEDS: CEROVITE ADV FORMULA TAB PO SCH (07:52)
[2018-06-06] MEDS: CIPROFLOXACIN 500 MG TAB PO SCH ×2 (07:52→20:13)
[2018-06-06] MEDS: FUROSEMIDE 20 MG TAB PO SCH (07:52)
[2018-06-06] MEDS: PRAVASTATIN SOD 40 MG TAB PO SCH (07:52)
--- NOTE | 2018-06-06 09:26 | Consultation Report ---
DATE OF CONSULTATION: 06/06/2018 ORTHOPEDIC CONSULT CHIEF COMPLAINT: Bilateral foot pain, discomfort and deformities and ulcers. HISTORY OF PRESENT ILLNESS: The patient is an 87-year-old gentleman with multiple medical comorbidities including congestive heart failure, apparent rheumatoid arthritis, hypertension, history of MRSA infection, cerebrovascular disease, peripheral vascular disease, who was admitted several days ago due to having repeated falls. I had recently seen him in clinic in the middle part of February for this chronic left foot infection of his great toe. We had recommended amputation at that point, but the patient has not been ready for it. He has had a history of several forefoot surgeries in the past including a second toe amputation done in [place] years ago. He has had several other surgeries by scrum project manager as well. The dates are unclear. He developed this chronic wound over his big toe around the IP joint. He has got marked deformity. He has got obvious exposed bone. Slight foul odor. He has basically just been managing this with antibiotics per the infectious disease staff. He has now been admitted these multiple falls and now would like to have his toe amputated. He also has some sores on his right foot, but no real documented signs of osteomyelitis. PAST MEDICAL HISTORY: Significant for: 1. Congestive heart failure. 2. Arthritis. 3. Prostate cancer, status post surgery and radiation. 4. Rheumatoid arthritis. 5. Hypertension. 6. Chronic MRSA infection. 7. Cerebrovascular disease. 8. Peripheral vascular disease. The remainder of the past medical history is as per the admission H and P. OBJECTIVE: VITAL SIGNS: Temperature is 36.9. Vital signs stable. GENERAL: Physical examination shows a pleasant, very talkative 87-year-old male. EXTREMITIES: Examination of the left foot reveals missing the second toe. He has got a chronic deformity to his great toe with essentially almost in a vertical position laterally. He has got a sore over the IP joint with some exposed bone and a slight foul odor to it. Not a lot of cellulitis. Minimal functional motion of the toe. Examination of the right foot reveals a small open area over the mid foot as well as the MTP joint with some surrounding callus. No obvious signs of purulence or cellulitis. He has also got a chronic deformity to his right foot with hallux valgus deformity and deformity of the IP joint. LABORATORY DATA: Most recent labs reveal a normal white count, normal hemoglobin and hematocrit. Sed rate is 8. X-RAYS: X-rays of both feet were reviewed. X-rays of the left foot reveal missing the majority of the second toe. He has got chronic degenerative changes in his foot. He does have a dislocated IP joint with marked valgus deformity at the IP joint. No major bone destruction otherwise other than arthritic change. Examination of the right foot reveals some fragmentation and collapse of his mid foot. He has got hallux valgus deformity to his IP joint of his great toe as well. He has got diffuse degenerative changes. No obvious bony erosions. I did review his MRI from March of both feet. It does look like he has got osteomyelitis of the great toe on the left foot. No obvious osteomyelitis in the right foot. ASSESSMENT: An 87-year-old male with multiple medical comorbidities with a history of multiple left forefoot surgeries with: 1. Left chronic forefoot deformity with exposed bone and osteomyelitis of the great toe. 2. Right foot significant deformity with some ulcerations without obvious osteomyelitis. PLAN: We talked about treatment. At this point, the patient is apparently looking to get a pacemaker, but they would not do until his infection has cleared up. The only way to really clear his toe infection up would be amputation; he would like to proceed with this. We will proceed with left great toe amputation. The right foot just continues to need wound care. There is no simple solution to this. He may end up with further surgical intervention now, but I do not see any need for that now and any surgery would have to be pretty extensive. We will stick to the left foot. The risks and benefits of great toe amputation were explained to the patient including but not limited to DVT, PE, , infection, neurological injury, recurrent infection, failure of the wound to heal, persistent pain, dysfunction, etc. The patient understands and desires to proceed. Informed consent was obtained. He is n.p.o. and we will plan to hopefully doing this later today if possible.
[2018-06-06] MEDS ORDERED: fentaNYL citrate 100 MCG/2 ML VIAL ONE (15:19)
[2018-06-06] MEDS ORDERED: LIDOCAINE HCL 2% 2 ML VIAL/AMP(20MG/ML) INFIL ONE (15:19)
[2018-06-06] MEDS ORDERED: PROPOFOL IV EMULSION 10 MG/ML 20 ML VIAL IV ONE ×2 (15:19→16:46)
[2018-06-06] MEDS ORDERED: DAPTOmycin 500 MG VIAL IV SCH (15:30)
--- NOTE | 2018-06-06 15:31 | Family Medicine Progress Note ---
Date of Service June 06, 2018 Assessment & Plan (1) Frequent falls: Left foot MRSA osteomyelitis: Surgery consulted - For toe amputation today. Continue cipro 500mg BID. Add daptomycine for MRSA coverage (holding statin while on daptomycin). Rearrange Dalbavancin on discharge. Ambulatory dysfunction and recurrent falls: Likely from joint deformities from RA, deconditioning and underlying infection. PT/OT Rheumatoid arthritis: Multiple joint deformities in hands and feet Likely contributing to ambulatory dysfunction Atrial fib/flutter with h/o sinus pause in past while on B jimy HR controlled at this time. For PPM placement once infection cleared. Per records - Anticoagulation held secondary to concern for falls/head trauma. Should be readdressed as falls are not a contraindication to anticoagulation. Will address after surgery. CAD Continue plavix. Hold statin while on daptomycin. resume on discharge. Chronic diastolic CHF continue home meds Hypertension: continue home meds DVT prophylaxis: SCDs Subjective no new concerns overnight. no fever, chest pain, shortness of breath. Physical Exam Vital Signs (Past 24 Hours): Last Vital Signs Temp 36.9 C 06/06/18 14:55 Pulse 71 06/06/18 14:55 Resp 18 06/06/18 14:55 BP 144/73 H 06/06/18 14:55 Pulse Ox 95 06/06/18 14:55 Constitutional: WD/WN, vitals as above Respiratory: normal respiratory effort, lungs clear to auscultation Cardiovascular: RRR, no murmur, no edema Gastrointestinal (Abdomen): normal bowel sounds, soft, nontender, no hepatosplenomegaly
[2018-06-06] MEDS ORDERED: BUPIVACAINE 0.5 % 5 MG/1 ML MPF 30ML VIAL ONE (15:38)
[2018-06-06] MEDS ORDERED: LIDOCAINE HCL 1% 20 ML VIAL ONE (15:38)
[2018-06-06] MEDS ORDERED: BACITRACIN INJ 50,000 UNIT VIAL ONE (15:39)
--- NOTE | 2018-06-06 15:42 | Anesthesiology Consultation ---
Date of Service June 06, 2018 Assessment & Plan (1) Encounter for pre-operative examination: Chart Review Chart Review: Acceptable Risk for Surgery and Patient NOT seen in Pre Admission Testing NPO Date Last Intake of Fluids: 06/05/18 Time Last Intake of Fluids: 23:55 Date Last Intake of Solids: 06/05/18 Time Last Intake of Solids: 23:55 History Surgery Operation Date: 06/06/18 10:40 Proposed Procedures p Left Great toe Amputation - Devyn Quezada MD Height/Weight Height: 5 ft 9 in Weight: 85.3 kg Allergies Allergy/AdvReac Type Severity Reaction Status Date / Time No Known Allergies Allergy Verified 05/15/18 10:22 Medications Home Medications Medication Instructions Recorded Confirmed Last Taken cholecalciferol (vitamin D3) 1,000 1,000 units PO DAILY 11/06/17 06/03/18 11/22/17 unit capsule clopidogrel 75 mg tablet 75 mg PO DAILY 11/06/17 06/03/18 11/22/17 furosemide 20 mg tablet 20 mg PO DAILY 11/06/17 06/03/18 11/22/17 pravastatin 40 mg tablet 40 mg PO DAILY 11/06/17 06/03/18 11/22/17 cevkhjohgzlu-nbsq-cyjnp acid 1 tab PO QAM #30 tab 02/01/18 06/03/18 Unknown [Certavite-Antioxidant] acetaminophen [Tylenol Extra 500 mg PO Q4 PRN MDD 6 tabs daily 04/22/18 06/03/18 Unknown Strength] nitroglycerin [Nitrostat] 0.4 mg SUBLINGUAL UD PRN 04/22/18 06/03/18 Unknown polyethylene glycol 3350 [Miralax] 17 g PO DAILY PRN 04/22/18 06/03/18 Unknown sennosides-docusate sodium 1 tab PO BID PRN 04/22/18 06/03/18 Unknown [Senna-S] Active Medications Generic Name Dose Route Start Last Admin Trade Name Freq PRN Reason Stop Dose Admin Ciprofloxacin 500 mg 06/03/18 21:00 06/06/18 07:52 Cipro PO 06/13/18 20:59 500 mg BID SREE Administration Protocol Clopidogrel Bisulfate 75 mg 06/04/18 09:00 06/06/18 07:52 Plavix PO 07/04/18 08:59 75 mg DAILY SREE Administration Furosemide 20 mg 06/04/18 09:00 06/06/18 07:52 Lasix PO 07/04/18 08:59 20 mg DAILY SREE Administration Multivitamins/Minerals 1 tab 06/04/18 09:00 06/06/18 07:52 Multivitamin W/ Minerals Tab PO 07/04/18 08:59 1 tab QAM SREE Administration Pravastatin Sodium 40 mg 06/04/18 09:00 06/06/18 07:52 Pravachol PO 07/04/18 08:59 40 mg DAILY SREE Administration Vitamin D 1,000 units 06/04/18 09:00 06/06/18 07:52 Vitamin D3 PO 07/04/18 08:59 1,000 units DAILY SREE Administration Past Medical History Medical History Pressure ulcer of toe of left foot, stage 2 (Acute) Vascular insufficiency of extremity Pressure ulcer of left buttock, stage 2 Atrial flutter Chronic diastolic CHF (congestive heart failure) Rheumatoid arthritis Right bundle branch block Ambulatory dysfunction (Resolved) Hypertension (Resolved) Pressure ulcer (Acute) Acute cerebrovascular insufficiency (Chronic) CAD (coronary artery disease) (Chronic) CHF (congestive heart failure) (Chronic) Gait abnormality (Chronic) Osteoarthritis (Chronic) 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) Venous insufficiency (chronic) (peripheral) (Chronic) Prostate CA (Resolved) 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 Fall Hyperbilirubinemia Influenza A Pressure ulcer of toe of right foot, stage 2 UTI (urinary tract infection) Past Family History Family History Other No significant family history Past Surgical History Surgical History S/P knee surgery (Resolved) TKR b/l S/P radiation therapy (Resolved) S/P triple vessel bypass (Resolved) History of cataract surgery History of cholecystectomy History of knee surgery S/P triple vessel bypass in [place] - Social History Smoking Status: Former smoker tobacco type: cigarettes Smoking cigarettes per day: 1/2 ppd Do You Dip or Chew Tobacco: No Smoking End Date: 20-30 years ago Hx Alcohol Use: Yes (2-3 days a week) Alcohol type: beer and hard liquor alcohol intake frequency: a few times a week Hx Substance Use: No substance use type: does not use Physical Exam Vital Signs Last Vital Signs Temp 36.9 C 06/06/18 14:55 Pulse 71 06/06/18 14:55 Resp 18 06/06/18 14:55 BP 144/73 H 06/06/18 14:55 Pulse Ox 95 06/06/18 14:55 Testing Electrocardiogram Date: 06/06/18 Aflutter with variable AV block 70 RBBB Chest X-Ray Date: 06/03/18 [facility] [place] [phone] XRay Report Patient: RINA SMALL Date: 06/03/18 MR#: [id number] [address] Acct ID:[id number]: Date: 1930City Zip: [place] [address] Age: 87Location: ED Sex: M Room/Bed: Att Phy: Diagnosis: HIP PAIN Edel Phy: Drew Aldrich M.D.Service Date: 06/03/18 Fam Phy: Interpreting Phy: Drew Ugalde MD Admit Phy: Ordering Phy: Andre Orellana PA-C (E.[email or web address]) cc: ~ XR chest 1V portable CLINICAL HISTORY: 87 years-old Male presenting with weakness. TECHNIQUE: PA view of the chest was obtained. COMPARISON: 04/22/2018. FINDINGS: Median sternotomy wires noted. Atherosclerosis of the aortic arch. Calcified right paratracheal lymph node suggested versus calcified granuloma. Cardiac silhouette top normal in size. Minimal linear irregular opacities at the lung bases, left greater than right. Interval resolution of prior left basilar opacity. No other new focal opacity. No large effusion or pneumothorax. Degenerative changes of the thoracic spine. Advanced degenerative changes of the glenohumeral joints. Suspected underlying osteopenia. Upper abdomen normal. IMPRESSION: 1. Minimal basilar opacities likely atelectasis or scarring. No convincing evidence of acute cardiopulmonary disease. 2. Resolution of prior left basilar infiltrate. Electronically signed by: Drew Ugalde M.D. 06/03/2018 10:07 AM Laboratory Results 06/03/18 09:38 06/03/18 09:38 Urine Color Dark Yellow 06/03/18 10:20 Urine Appearance Clear (Clear) 06/03/18 10:20 Urine pH 5.0 (4.5-7.5) 06/03/18 10:20 Ur Specific [place] 1.028 (1.000-1.030) 06/03/18 10:20 Urine Protein Trace (Negative) H 06/03/18 10:20 Urine Glucose (UA) Negative (Negative) 06/03/18 10:20 Urine Ketones Trace (Negative) H 06/03/18 10:20 Urine Nitrite Negative (Negative) 06/03/18 10:20 Ur Leukocyte Esterase Negative (Negative) 06/03/18 10:20 Urine WBC (Auto) 1-5 /hpf (0-5) 06/03/18 10:20 Urine RBC (Auto) 5-10 /hpf (0-4) H 06/03/18 10:20 U Hyaline Cast (Auto) 1-5 /lpf (0-5) 06/03/18 10:20 U Epithel Cells (Auto) 0-5 /lpf (0-5) 06/03/18 10:20 Urine Bacteria (Auto) Negative (Negative) 06/03/18 10:20
[2018-06-06] MEDS ORDERED: ePHEDrine sulfate 50 MG/ML AMP IV PRN (16:09)
[2018-06-06] MEDS ORDERED: HYDROmorphone INJ 1 MG/ML SYRINGE IV PRN (16:09)
[2018-06-06] MEDS ORDERED: ATROPINE SULFATE 0.1 MG/ML 10ML SYR IV PRN (16:09)
[2018-06-06] MEDS ORDERED: fentaNYL citrate 100 MCG/2 ML VIAL IV PRN (16:09)
[2018-06-06] MEDS ORDERED: ONDANSETRON INJ 2 MG/ML 2 ML VIAL IV PRN (16:09)
[2018-06-06] MEDS ORDERED: LABETALOL HCL IV 5 MG/ML 20ML IV PRN (16:09)
[2018-06-06] MEDS ORDERED: MEPERIDINE HCL 25 MG/ML CARP IV PRN (16:09)
[2018-06-06] MEDS ORDERED: PHENYLEPHRINE 100MCG/ML 5ML SYR IV PRN (16:09)
[2018-06-06] MEDS ORDERED: CEFAZOLIN 2,000 MG/15 ML IV PUSH IV ONE (16:16)
[2018-06-06] MEDS ORDERED: CEFAZOLIN 2000MG 2,000 MG/15 ML SYR IV ONE (16:17)
--- NOTE | 2018-06-06 16:18 | History & Physical Bridge Note ---
Date of Service June 06, 2018 History & Physical Bridge Note I have examined the patient, reviewed the History & Physical and in the interval since the performance of the History & Physical I have noted the following changes of clinical significance: no changes noted
[2018-06-06] MEDS ORDERED: ePHEDrine sulfate 50 MG/ML SYR ONE (16:47)
[2018-06-06] MEDS ORDERED: PHENYLEPHRINE 100MCG/ML 5ML SYR ONE (16:47)
--- NOTE | 2018-06-06 17:16 | Post Operative Brief Note ---
Immediate Post Op Note v1 Date of Surgery June 06, 2018 Pre & Post Diagnosis Operation Date: 06/06/18 10:40 Pre-Op Diagnosis: Osteomyelitis left great toe Post-Op Diagnosis: Osteomyelitis left great toe Procedure Operation Date: 06/06/18 10:40 Actual Procedures p Left Great toe Amputation(Left) - Devyn Quezada MD Surgeon Devyn Quezada MD Awning Erector None Estimated Blood Loss 5 Findings Consistent with Post-Op Diagnosis Fluids 500 cc Specimens Left Great Toe Complications none Disposition Accompanied Patient To Recovery: Yes Disposition: Recovery Room
[2018-06-06] MEDS: DAPTOmycin 425 MG in SYRINGE 0 ML IV SCH (19:06)
--- NOTE | 2018-06-07 02:58 | Operative Report ---
DATE OF OPERATION: 06/06/2018 SURGEON: Devyn Quezada MD SOFT METALS ENGRAVER HAND: None. PREOPERATIVE DIAGNOSIS: Left great toe ulcer with underlying chronic osteomyelitis. POSTOPERATIVE DIAGNOSIS: Left great toe ulcer with underlying chronic osteomyelitis. PROCEDURE PERFORMED: Left great toe amputation. COMPLICATIONS: None. ESTIMATED BLOOD LOSS: 5 mL. TOURNIQUET TIME: 10 minutes at 300 mmHg. ANESTHESIA: Ankle block with sedation. SPECIMENS: Left great toe sent for pathology. OPERATIVE INDICATIONS: The patient is an 87-year-old gentleman with pretty significant vascular disease. He has had a long history of left foot problems. He has undergone multiple surgeries in the past including a previous toe amputation of the second toe. He developed a chronic deformity of his left foot with open wound over his IP joint with chronic bone exposure. This has been like this for a long time. He has now elected to proceed with surgical treatment. He is admitted to the hospital for falls and also looking into getting a pacemaker placement, but they want to have his infection cured before proceeding. FINDINGS: Operative findings revealed an open wound over his IP joint. He had a marked valgus deformity to his great toe with about a 90-degree angle of his IP joint. There was a foul odor to the toe. Not a lot of pus or purulent debris. OPERATIVE PROCEDURE: The patient was taken to the operating room, identified and placed on the operating table in the supine position. Patient on antibiotics on the floor. An ankle block anesthetic was implemented in the holding area. We did give some additional IV ancef before surgery. A left ankle tourniquet was placed. The left foot was then scrubbed with Hibiclens and then scrubbed, prepped with ChloraPrep and then draped in usual sterile fashion. The foot was elevated, but not exsanguinated. The tourniquet was placed at 300 mmHg. A fish-mouth type incision with a racquet type extension medially was then performed at the base of the great toe. Sharp dissection was carried out through the subcutaneous tissues directly down to the proximal phalanx. I then skeletonized the toe back to the MTP joint and disarticulated the great toe and removed it. All flexion and extensor tendons were then identified, traction applied and they were cut, short and allowed to retract. I irrigated the wound extensively. There were no signs of deep infection at this level. The tourniquet was then let down for a tourniquet time of 10 minutes. Hemostasis was assured with the use of electrocautery. The skin was then closed with 3-0 nylon suture in simple fashion. The foot was then cleaned and dried and a sterile dressing of Xeroform, 4 x 4's, sterile cast padding, a Coban wrap and postop shoe were applied. The patient then transferred to the recovery room in stable condition. The patient tolerated the procedure well with no complications. All needle and sponge counts were correct at the end of the operation. I attest to the content of the Intraoperative Record and any orders documented therein. Any exceptions are noted below. MTDD
--- NOTE | 2018-06-07 06:45 | Anesthesiology Progress Note ---
Date of Service June 07, 2018 Anesthesia Post Procedure Vital Signs Vital Signs: Temp Pulse Pulse Resp BP BP Pulse Ox 06/07/18 04:36 36.4 C L 72 18 149/77 H 94 06/06/18 23:08 36.6 C 51 L 16 144/74 H 91 06/06/18 17:59 36.3 C L 46 L 20 158/69 H 99 06/06/18 17:45 51 L 13 151/63 H 98 06/06/18 17:35 36.2 C L 53 L 15 145/85 H 97 06/06/18 17:25 58 L 12 145/84 H 99 06/06/18 17:15 36.2 C L 64 15 139/71 99 06/06/18 14:55 36.9 C 71 18 144/73 H 95 Pain Intensity Bilateral Foot: Pain Intensity: 0 Left Foot: Pain Intensity: 0 Notes Mental Status: alert / awake / arousable Patient Amnestic to Procedure: Yes Nausea / Vomiting: adequately controlled Pain: adequately controlled Airway Patency, RR, SpO2: stable & adequate BP & HR: stable & adequate Hydration State: stable & adequate Anesthetic Complications: no major complications apparent and Pt Satisfied with anesthetic care Notes: Dr. Acosta took over the case. The patient appears to have done well with the anesthesia.
--- NOTE | 2018-06-07 08:10 | Progress Note ---
DATE: 06/07/2018 SUBJECTIVE: An 87-year-old gentleman postop day 1 from a left great toe amputation for chronic osteomyelitis and deformity. Seems to be doing okay. He is having some pain. He is requesting some pain meds. No other complaints. No chest pain or shortness of breath. OBJECTIVE: VITAL SIGNS: Temperature 36.4. Vital signs stable. GENERAL: Physical examination shows an elderly gentleman who is talking on the phone when I went in to see him this morning. EXTREMITIES: Examination of the left foot reveals the dressing to be in place. No significant drainage. His remaining toes have brisk refill. ASSESSMENT: An 87-year-old gentleman postop day 1 from a left great toe amputation for chronic osteomyelitis. Seems to be doing okay. Pain seems to be controlled. PLAN: At this point, we are just going to leave this bandage on for 2 weeks and reassess his wound at that point. He can weightbear as tolerated, but should really elevate his foot as much as possible. After he gets 24 hours of postoperative antibiotics, I do not think he needs to be in the hospital from the orthopedic standpoint. I need to see him back in 2 weeks. Any orthopedic questions can be directed to me at [phone].
[2018-06-07] MEDS: PRAVASTATIN SOD 40 MG TAB PO SCH (08:15)
[2018-06-07] MEDS: CHOLECALCIFEROL 1,000 UNITS TAB PO SCH (08:15)
[2018-06-07] MEDS: CLOPIDOGREL BISULFATE 75 MG TAB PO SCH (08:15)
[2018-06-07] MEDS: FUROSEMIDE 20 MG TAB PO SCH (08:15)
[2018-06-07] MEDS: CEROVITE ADV FORMULA TAB PO SCH (08:15)
[2018-06-07] MEDS: CIPROFLOXACIN 500 MG TAB PO SCH ×2 (08:15→21:38)
[2018-06-07] MEDS ORDERED: TRAMADOL HCL 50 MG TABLET PO PRN (10:29)
--- NOTE | 2018-06-07 14:13 | Family Medicine Progress Note ---
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 Added daptomycin for MRSA coverage (holding statin while on daptomycin). Rearrange Dalbavancin on discharge. Leave current bandage on for 2 weeks Weightbear as tolerated Elevate foot as much as possible. Ortho f/u in 2 weeks. Ambulatory dysfunction and recurrent falls: Likely from joint deformities from RA, deconditioning PT/OT rehab placement Rheumatoid arthritis: Multiple joint deformities in hands and feet Likely contributing to ambulatory dysfunction Atrial fib/flutter with h/o sinus pause in past while on B jimy HR controlled. For PPM placement once infection cleared. Per records - Anticoagulation held secondary to concern for falls/head trauma. Will discuss with his cereal popper as falls are not a contraindication to anticoagulation. CAD Continue plavix. Hold statin while on daptomycin. resume on discharge. Chronic diastolic CHF continue home meds Vascular insufficiency Good arterial supply. ? venous. Hypertension: continue home meds DVT prophylaxis: SCDs Subjective did well post op. denies any concern. consistently talks about going home. no fever, chest pain, shortness of breath. denies pain in left foot Physical Exam Vital Signs (Past 24 Hours): Last Vital Signs Temp 36.5 C 06/07/18 12:38 Pulse 87 06/07/18 12:38 Resp 18 06/07/18 12:38 BP 151/81 H 06/07/18 12:38 Pulse Ox 95 06/07/18 12:38 Constitutional: WD/WN, vitals as above Respiratory: normal respiratory effort, lungs clear to auscultation Cardiovascular: RRR, no murmur, no edema Gastrointestinal (Abdomen): normal bowel sounds, soft, nontender, no hepatosplenomegaly Musculoskeletal: Left foot in dressing and boot. Right foot with venous stasis changes +
[2018-06-07] MEDS: DAPTOmycin 425 MG in SYRINGE 0 ML IV SCH (16:14)
--- NOTE | 2018-06-07 20:20 | Infectious Disease Progress Nt ---
Date of Service June 07, 2018 Assessment & Plan (1) Chronic osteomyelitis of toe of left foot: Patient with chronic osteomyelitis of the left great toe with severe deformity, previously under treatment with IV dalbavancin and oral ciprofloxacin. Patient now status post left great toe amputation. Patient to continue on present IV antibiotics, with length of therapy to be determined by clinical healing. Will follow. (2) MRSA (methicillin resistant Staphylococcus aureus) infection: (3) Skin ulcer of left great toe: Subjective Patient seen in follow-up for osteomyelitis of the toe. Patient now status post great toe amputation. Reasonably comfortable postop. Remains afebrile. Review of Systems All systems reviewed & are unremarkable except as noted in HPI & below Physical Exam Vital Signs (Past 24 Hours): Last Vital Signs Temp 36.8 C 06/07/18 20:05 Pulse 65 06/07/18 20:05 Resp 18 06/07/18 20:05 BP 143/73 H 06/07/18 20:05 Pulse Ox 92 06/07/18 20:05 Constitutional: WD/WN, vitals as above comfortable; no acute distress Eyes: PERRL, conjunctivae normal, anicteric sclerae ENMT: external ear and nose normal, oropharynx normal Neck: trachea midline, no thyromegaly neck nontender Respiratory: normal respiratory effort, lungs clear to auscultation normal percussion; does not use accessory muscles Cardiovascular: Rate/Rhythm: regular rate and regular rhythm Heart Sounds: normal S1 and normal S2; no gallop, no murmur and no cardiac rub Vessels: normal peripheral pulses; no JVD Gastrointestinal (Abdomen): normal bowel sounds, soft, nontender, no hepatosplenomegaly Musculoskeletal: no cyanosis or clubbing, extremities motor strength 5/5 Spine: thoracic spine normal to inspection and lumbar spine normal to inspection; no cervical spinal tenderness Extremities: + foot abnormality (Deformities of multiple toes with great toe ulcerations, unchanged plantar ulceration) Skin: no rashes, warm and dry normal turgor and + wound (Dressing intact left foot) Neurologic: patellar DTR's 2+ bilat, sensation intact no focal motor deficits Psychiatric: A+Ox3, euthymic affect Orientation: cooperative Lymphatic: no cervical or axillary lymphadenopathy no inguinal lymphadenopathy (1) Skin ulcer of left great toe Non-pressure ulcer stage: unspecified non-pressure ulcer stage Qualified Code(s): L97.529 - Non-pressure chronic ulcer of other part of left foot with unspecified severity
--- NOTE | 2018-06-08 08:09 | Progress Note ---
DATE: 06/08/2018 SUBJECTIVE: An 87-year-old gentleman postop day 2 from a left great toe amputation for infection. He is doing okay. Pain seems to be controlled this morning. No new complaints. OBJECTIVE: VITAL SIGNS: Temperature 36.7. Vital signs stable. EXTREMITIES: Examination of the left foot reveals the dressing to be clean, dry and intact. Just a little bit dried blood underneath the bandage. No other signs of problems. ASSESSMENT: An 87-year-old gentleman postop day 2 from a left great toe amputation, doing reasonably well orthopedically. Pain seems to be improved. PLAN: At this point, we are just going to leave this bandage on for 2 weeks. He can weightbear as tolerated, but should elevate his foot as much as possible. He is orthopedically okay for discharge any time medically stable. I need to see him back in 2 weeks. Any orthopedic questions can be directed to me at [phone].
[2018-06-08] MEDS: FUROSEMIDE 20 MG TAB PO SCH (08:13)
[2018-06-08] MEDS: PRAVASTATIN SOD 40 MG TAB PO SCH (08:13)
[2018-06-08] MEDS: CIPROFLOXACIN 500 MG TAB PO SCH (08:13)
[2018-06-08] MEDS: CEROVITE ADV FORMULA TAB PO SCH (08:14)
[2018-06-08] MEDS: CLOPIDOGREL BISULFATE 75 MG TAB PO SCH (08:14)
[2018-06-08] MEDS: CHOLECALCIFEROL 1,000 UNITS TAB PO SCH (08:14)
[2018-06-08] MEDS: DAPTOmycin 425 MG in SYRINGE 0 ML IV SCH (16:08)
--- NOTE | 2018-06-08 16:34 | Discharge Summary ---
Date of Service June 08, 2018 Admission HPI Per Admitting Provider 87 y/o M who was brought here today after several falls at home. Pt states that he falls fairly regularly. He states that it is generally due to prolonged walking that leads to a weakness and inability to continue with ambulation. Last night, pt stood up to reposition himself in a chair and when he tried to sit back down, he missed the chair. He was unable to get himself back up. His did not hear him yelling for her and he was on the ground about 4-5 hours until she got up this AM and found him. They live at [place] and help was called to assist. At some point after this, pt had another fall and it was determined that he should be seen in the ED. Pt states he hit his head "but not seriously". Pt has intermittent diarrhea. Pt denies fever, chest pain, abd pain, n/v. Pt states that he has had increased "huffing and puffing" by the time he gets to [place]. This resolves once he is seated. Pt has ongoing issues with b/l great toe MRSA cellulitis. He is working with Dr. Lizarraga and [facility]. He has been on IV abx in the past, but is currently on cipro 500mg BID. His issues stem from joint deformities related to progressive RA. He has hx of amputations in the past and feels that this is likely where this is heading. He states he has issues walking with the current state of his feet. He has pain, redness, and swelling to the feet and this is no different than usual. Pain is also no different than usual. Pt needs a higher level of care and/or rehab. Both the [facility] and [facility] no bed availability. Principal Diagnosis Left great toe osteomyelitis Discharge Exam Constitutional WD/WN, vitals as above Respiratory normal respiratory effort, lungs clear to auscultation Cardiovascular RRR, no murmur, no edema Musculoskeletal Left foot in dressing and boot. 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 Added daptomycin for MRSA coverage. Rearranged Dalbavancin on discharge. Underwent left great toe amputation. To leave current bandage on for 2 weeks Weightbear as tolerated Elevate foot as much as possible. Ortho f/u in 2 weeks. Ambulatory dysfunction and recurrent falls: Likely from joint deformities from RA, deconditioning PT/OT eval done. rehab placement recommended. patient declined. Going home with home PT Rheumatoid arthritis: Multiple joint deformities in hands and feet Likely contributing to ambulatory dysfunction Atrial fib/flutter with h/o sinus pause in past while on B jimy HR stayed controlled. For PPM placement once infection cleared. Per records - Anticoagulation held secondary to concern for falls/head trauma. Spoke to Dr. Arora - Patient has significant h/o of frequent falls CAD Continued plavix. Held statin while on daptomycin. resumed on discharge. Chronic diastolic CHF continued home meds Vascular insufficiency Good arterial supply. Hypertension: continued home meds Total Time Total Time Spent Total Time Spent (In Minutes): 40 Discharge Plan Discharge Items Patient Disposition: Home - Self-Care Reason For Visit: FALLS Discharge Diagnosis: Left foot osteomyelitis Discharge Goals: Improve disease control and Improve function Activity: As commented below Activity Comment: May weightbear as tolerated in boot. Elevate Left foot as much as possible Weightbearing: Left weightbearing Weightbearing Comment: May weightbear as tolerated in boot. Elevate foot as much as possible. Non-emergency contact: Primary Care Provider Call non-emergency contact if: your symptoms worsen Follow-up/Referrals: Drew Aldrich MD [Primary Care Provider] - Devyn Quezada MD [Surgeon] - (Follow-up with ORthopedics 2-3 weeks from surgery date.) Diet: Heart Healthy Addtl Provider Instructions: Keep dressing clean and dry and in place until return to clinic appointment in 2-3 weeks. May weightbear as tolerated in boot. Return to orhtopedic clinic in 2-3 weeks from surgery date. Follow up with family physician in one week Prescriptions: New ciprofloxacin HCl 500 mg Tablet 500 mg PO BID Qty: 60 RF: 0 dalbavancin 500 mg solution 1,500 mg IV ONCE Qty: 1 RF: 0 Continued cholecalciferol (vitamin D3) 1,000 unit capsule 1,000 units PO DAILY RF: 0 clopidogrel [Plavix] 75 mg tablet 75 mg PO DAILY RF: 0 furosemide [Lasix] 20 mg tablet 20 mg PO DAILY RF: 0 pravastatin 40 mg tablet 40 mg PO DAILY RF: 0 Certavite-Antioxidant 18-400 mg-mcg Tablet 1 tab PO QAM Qty: 30 RF: 0 sennosides-docusate sodium [Senna-S] 8.6-50 mg Tablet 1 tab PO BID PRN (Reason: Constipation) RF: 0 acetaminophen [Tylenol Extra Strength] 500 mg Tablet 500 mg PO Q4 MDD 6 tabs daily PRN (Reason: Fever Or Pain) RF: 0 nitroglycerin [Nitrostat] 0.4 mg Tablet, Sublingual 0.4 mg Sublingual UD PRN (Reason: chestpain) RF: 0 polyethylene glycol 3350 [Miralax] 17 gram/dose Powder 17 g PO DAILY PRN (Reason: Constipation) RF: 0 Stand-Alone Forms: [facility] Discharge Orders: Discharge Order (Routine); Ordered 06/08/18 Ordered By: Jessica Gamble Admission Data Admit Date/Time: 06/06/18 12:35 Attending Provider: Jessica Gamble Admit Provider: Shauna Singh Primary Care Provider: Drew Aldrich Other Providers: Shauna Singh ; Adam Lizarraga ; Devyn Quezada ; [facility] Service: Medical Other Interventions: Discharge Summary Assessment (RN) Last Done: 06/08/18 15:25
== END 2018-06-08 17:30 | disposition home or self-care (01) | DRG 504 ==
LOC: 2N 08:57 → ED 08:57 → SUATTDRO 16:33 → 2N 18:13